=== PATIENT | female | born 1950 | race Caucasian/White ===

== ENCOUNTER → 2016-03-05 | Outpatient (CLI) | payer MEDICARE, OTHER ==
[2015-12-22 07:00] VITALS: BP 80/49
[~2016-03-05] MED LIST: ALPR0.5T PO; ALPR1TAB2 PO; ALPR2TAB2 PO; ATORVASTATIN CA80 MG PO; BUSP10TA PO; CA C1TAB66 PO; CALC-77 PO; CHOL-5 PO; CHOL10003 PO; CLOP75TA27 PO; DULO60CA6 PO; GLUC1TAB69 PO; KRIL1CAP10 PO; MULT1TAB52 PO; TIZA4TAB PO; TRAM50TA PO; UBID200C4 PO; ZOLP10TA4 PO
--- NOTE | 2016-03-05 12:45 | KCIC ---
PROCEDURE MR of the left knee HISTORY Left knee pain. Pain posterior and lateral. Pain for 3-4 weeks. TECHNIQUE Standard noncontrast images are obtained. COMPARISON FINDINGS No evidence of medial meniscal tear No evidence of a lateral meniscal tear. Anterior and posterior cruciate ligaments are intact. Medial collateral ligament demonstrates mild proximal scarring or sprain. Iliotibial band unremarkable. Fibular collateral ligament, biceps femoris tendon and popliteus tendon are intact. Extensor mechanism is intact. Moderate joint effusion. No evidence of osteochondral loose body. Moderate chondromalacia at the posterior aspect of the lateral joint compartment. Moderate chondromalacia of the patella. No bone lesion or acute fracture. Mild generalized soft tissue edema or contusion around the knee. IMPRESSION 1. No evidence of meniscal tear or internal derangement. 2. Primary osteoarthritis at the lateral compartment and patella. Electronically signed by: Immanuel Fitzgerald MD (Mar 05, 2016 12:44:30)
== END | disposition home or self-care (01) ==
LOC: KCIC MRI 09:09
PROVIDERS: ATTEND Nurse Practitioner Family
DX: M25.562 Pain in left knee (principal); M17.12 Unilateral primary osteoarthritis, left knee
CPT/HCPCS: 73721

== ENCOUNTER 2016-03-07 11:42 | Inpatient (IN) | payer MEDICARE ==
[~2016-03-07] VITALS: Ht 157.5 cm; Wt 91.8 kg
--- NOTE | 2016-03-07 12:22 | EKG ---
[facility] [address] [place] [address] Test Date: 2016-03-07 Test Time: 11:59:34 Pat Name: JONNA PRECIADO Department: Room: Gender: F Hole Puncher Strap: : 1950 Requested By: YULIA LLANOS Order Number: [id number] Reading MD: Gennaro Anguiano Measurements Intervals Sherman Rate: 69 P: 39 WI: 170 QRS: -17 QRSD: 100 T: -2 QT: 428 QTc: 460 Interpretive Statements SINUS RHYTHM Electronically Signed On 03-10-2016 10:20:16 LINING FINISHER by Gennaro Anguiano
--- NOTE | 2016-03-07 12:26 | PHYS DOC ---
Past Medical History Past Medical History: CVA Past Surgical History: Knee Replacement Adult General Chief Complaint Chief Complaint: WEAKNESS/GENERALIZED HPI HPI Patient is a 65 year old female who reports history of CVA with residual chronic dysarthria a presents complaining of drowsiness, fatigue, low-grade fevers and chills. Her family members were apparently concerned that she was having a stroke because her speech has become more slurred. Time of onset is uncertain. Apparently, her speech has become more slurred. The patient says that this often happens when she is either stressed out or sick, but her speech will go back to normal. Patient takes a muscle relaxant, tizanidine, and apparently takes some sort of pain medication as well for her chronic neck pain. She denies any acute motor weakness or sensory loss. She denies cough, chest pain, abdominal pain, nausea, vomiting, diarrhea, dysuria, or hematuria. She reports that she is on some antibiotic for urinary tract infection, but can' t tell me what. Review of Systems Review of Systems Constitutional: Reports low-grade fevers and chills Eyes: Denies change in visual acuity, redness, or eye pain HENT: Denies nasal congestion or sore throat Respiratory: Denies cough or shortness of breath Cardiovascular: An ice chest pain GI: Denies abdominal pain, nausea, vomiting, bloody stools or diarrhea : Denies dysuria or hematuria Musculoskeletal: Denies back pain or joint pain. Reports chronic neck pain. Integument: Denies rash or skin lesions Neurologic: Denies headache, focal weakness or sensory changes. Reports drowsiness and slurred speech. Current Medications Current Medications Current Medications Medications (Trade) Dose Ordered Sig/Leola Start Time Stop Time Status Last Admin Dose Admin Ceftriaxone Sodium 1 gm/ Sodium Chloride 50 ml @ 100 mls/hr Q24H 03/08/16 14:00 Ceftriaxone Sodium (Rocephin 1gm Ivpb For Omni) 50 ml @ 100 mls/hr 1X ONCE 03/07/16 14:00 03/07/16 14:29 Naloxone HCl 0.4 mg 0.4 mg 1X ONCE 03/07/16 12:30 03/07/16 12:31 DC 03/07/16 12:44 0.4 MG Sodium Chloride 1,000 ml @ 1,000 mls/hr 1X ONCE 03/07/16 13:30 03/07/16 14:29 03/07/16 14:01 1,000 MLS/HR Allergies Allergies Allergies Coded Allergies Type Severity Reaction Last Updated Verified codeine Adverse Reaction Mild cramp, vomit 12/19/15 Yes Physical Exam Physical Exam Constitutional: Well developed, well nourished, no acute distress, non-toxic appearance. Somnolent, drowsy. HENT: Normocephalic, atraumatic, bilateral external ears normal, oropharynx moist, no oral exudates, nose normal. Eyes: PERRLA, EOMI, conjunctiva normal, no discharge. Neck: Normal range of motion, no tenderness, supple, no stridor. Cardiovascular:Heart rate regular rhythm, no murmur Lungs & Thorax: Bilateral breath sounds clear to auscultation Abdomen: Bowel sounds normal, soft, no tenderness, no masses, no pulsatile masses. Skin: Warm, dry, no erythema, no rash. Back: Normal to inspection. Extremities: No tenderness, no cyanosis, no edema. Neurologic: Drowsy/somnolent but easily arousable. Oriented X 3, normal motor function, normal sensory function, no focal deficits noted. Slurred speech noted. No aphasia appreciated. Psychologic: Affect normal, judgement normal, mood normal. Current Patient Data Vital Signs Vital Signs Date Time Temp Pulse Resp B/P Pulse Ox O2 Delivery O2 Flow Rate FiO2 03/07/16 11:45 98 72 20 95/50 93 Room Air 98.0 Lab Values Laboratory Tests Test 03/07/16 11:55 03/07/16 12:15 White Blood Count 12.0x10^3/uL (4.0-11.0) H Red Blood Count 3.92x10^6/uL (3.50-5.40) Hemoglobin 11.6g/dL (12.0-15.5) L Hematocrit 36.1% (36.0-47.0) Mean Corpuscular Volume 92fL (79-100) Mean Corpuscular Hemoglobin 30pg (25-35) Mean Corpuscular Hemoglobin Concent 32g/dL (31-37) Red Cell Distribution Width 17.2% (11.5-14.5) H Platelet Count 157x10^3/uL (140-400) Neutrophils (%) (Auto) 86% (31-73) H Lymphocytes (%) (Auto) 4% (24-48) L Monocytes (%) (Auto) 10% (0-9) H Eosinophils (%) (Auto) 0% (0-3) Basophils (%) (Auto) 0% (0-3) Neutrophils # (Auto) 10.2x10^3uL (1.8-7.7) H Lymphocytes # (Auto) 0.5x10^3/uL (1.0-4.8) L Monocytes # (Auto) 1.2x10^3/uL (0.0-1.1) H Eosinophils # (Auto) 0.0x10^3/uL (0.0-0.7) Basophils # (Auto) 0.0x10^3/uL (0.0-0.2) Platelet Estimate Pending Prothrombin Time 15.1SEC (11.7-14.0) H Prothrombin Time INR 1.3 (0.8-1.1) H Sodium Level 136mmol/L (136-145) Potassium Level 3.6mmol/L (3.5-5.1) Chloride Level 101mmol/L (98-107) Carbon Dioxide Level 20mmol/L (21-32) L Anion Gap 15 (6-14) H Blood Urea Nitrogen 48mg/dL (7-20) H Creatinine 2.6mg/dL (0.6-1.0) H Estimated GFR (Cockcroft-Gault) 18.5 Glucose Level 93mg/dL (70-99) Calcium Level 8.8mg/dL (8.5-10.1) Ethyl Alcohol Level < 10mg/dL (0-10) Urine Collection Type Unknown Urine Color Yellow Urine Clarity Cloudy Urine pH 6.0 Urine Specific [place] 1.015 Urine Protein Tracemg/dL (NEG-TRACE) Urine Glucose (UA) Negativemg/dL (NEG) Urine Ketones (Stick) Negativemg/dL (NEG) Urine Blood Moderate (NEG) Urine Nitrite Negative (NEG) Urine Bilirubin Negative (NEG) Urine Urobilinogen Dipstick 1.0mg/dL (0.2 mg/dL) Urine Leukocyte Esterase Moderate (NEG) Urine RBC 1-2/HPF (0-2) Urine WBC >40/HPF (0-4) Urine Squamous Epithelial Cells Many/LPF Urine Bacteria Moderate/HPF (0-FEW) Urine Opiates Screen Pos (NEG) Urine Methadone Screen Neg (NEG) Urine Barbiturates Neg (NEG) Urine Phencyclidine Screen Neg (NEG) Urine Amphetamine/Methamphetamine Neg (NEG) Urine Benzodiazepines Screen Pos (NEG) Urine Cocaine Screen Neg (NEG) Urine Cannabinoids Screen Neg (NEG) Urine Ethyl Alcohol Neg (NEG) Laboratory Tests 03/07/16 11:55 Laboratory Tests 03/07/16 11:55 EKG EKG EKG: Sinus rhythm. Left axis deviation. Rate 69 bpm. Normal intervals. No acute ST segment changes. EKG interpreted by me. Radiology/Procedures Radiology/Procedures [] Course & Med Decision Making Course & Med Decision Making Pertinent Labs and Imaging studies reviewed. (See chart for details) Patient has no focal deficits on exam, and I do not suspect acute CVA. She appears somnolent, drowsy, and dozes off during conversation. Her speech is slurred, and she is on benzodiazepines and opioids. I suspect medication induced narcosis. She was given 0.4 mg IV Narcan and woke up quite a bit and had significant improvement in her speech. Lab analysis reveals acutely elevated BUN/creatinine with acute renal insufficiency, likely prerenal. IV fluids were given for presumed dehydration. Urinalysis reveals UTI, so IV Rocephin was started. I have discussed this case with Dr. Cope who agreed to admit the patient for further management. Dragon Disclaimer Dragon Disclaimer This electronic medical record was generated, in whole or in part, using a voice recognition dictation system. Departure Departure Impression: Primary Impression: Dehydration Additional Impressions: Acute renal insufficiency UTI (urinary tract infection) Opiate or related narcotic overdose Admitting Physician: Ginna Cope Condition: STABLE Referrals: OFE ESTRADA APRN (PCP) Problem Qualifiers Additional Impressions: UTI (urinary tract infection) Urinary tract infection type: site unspecified Hematuria presence: without hematuria Qualified Code: N39.0 - Urinary tract infection, site not specified Opiate or related narcotic overdose Encounter type: initial encounter Injury intent: accidental or unintentional Qualified Code: T40.601A - Poisoning by unspecified narcotics, accidental (unintentional), initial encounter YULIA LLANOS MD Mar 07, 2016 12:20
[2016-03-07] MEDS ORDERED: NALOXONE 0.4 MG/ML VIAL. IV ONE (12:30)
[2016-03-07 12:40] LABS: BASO % 0 % (0-3); CALCIUM 8.8 mg/dL (8.5-10.1); CREATININE 2.6 mg/dL (0.6-1.0); EOS % 0 % (0-3); GFR 18.5; HEMATOCRIT 36.1 % (36.0-47.0); HEMOGLOBIN 11.6 g/dL (12.0-15.5); LYMPH # 0.5 x10^3/uL (1.0-4.8); LYMPH % 4 % (24-48); MEAN CORPUSCULAR HEMOGLOBIN 30 pg (25-35); MEAN CORPUSCULAR HGB CONC 32 g/dL (31-37); MEAN CORPUSCULAR VOLUME 92 fL (79-100); MONO % 10 % (0-9); NEUT % 86 % (31-73); PLATELET COUNT 157 x10^3/uL (140-400); POTASSIUM 3.6 mmol/L (3.5-5.1); RED BLOOD COUNT 3.92 x10^6/uL (3.50-5.40); RED CELL DISTRIBUTION WIDTH 17.2 % (11.5-14.5)
[2016-03-07 12:54] LABS: INR 1.3 (0.8-1.1); PROTHROMBIN TIME PATIENT 15.1 SEC (11.7-14.0)
[2016-03-07 13:20] LABS: BILIRUBIN,URINE NEGATIVE (NEG); GLUCOSE,URINE NEGATIVE (NEG); NITRITE,URINE NEGATIVE (NEG)
[2016-03-07 13:26] LABS: BARBITURATES NEG (NEG); BENZODIAZEPINES POS (NEG); CANNABINOIDS NEG (NEG); COCAINE NEG (NEG); METHADONE NEG (NEG); OPIATES POS (NEG); PHENCYCLIDINE NEG (NEG)
[2016-03-07 13:27] LABS: ETHANOL, URINE NEG (NEG)
[2016-03-07] MEDS ORDERED: IV NORMAL SALINE 1000ML BAG 1,000 ML IV ONE (13:30)
[2016-03-07] MEDS ORDERED: CEFTRIAXONE 1GM IVPB FOR OMNI 50 ML IV ONE ×2 (13:45→14:00)
[2016-03-07 13:48] LABS: PROTEIN,URINE TRACE mg/dL (NEG-TRACE); WBC,URINE >40 /HPF (0-4)
[2016-03-07 13:49] LABS: BACTERIA,URINE MODERATE /HPF (0-FEW); SQUAMOUS EPITHELIAL CELL,UR MANY /LPF
[2016-03-07] MEDS ORDERED: ONDANSETRON PF 4 MG/2 ML VIAL. IV PRN (14:15)
--- NOTE | 2016-03-07 14:54 | PDOC1 ---
History and Physical Date of Admission Date of Admission DATE: 03/07/16 TIME: 14:44 Identification/Chief Complaint Chief Complaint altered MS Source Source: Chart review, Patient History of Present Illness History of Present Illness 65 y/o female who is on benzos, narcs at home and she could not really tell me why or at least is too sleepy to tell me why, She goes into long stories about her hysterrectomy after her second son, etc, She did not want to be refocused. She got narcan at ER, woke her up but is still drowsy but way significantly better than upon arrival./ LAbs show dehydration with creatine 2 plus from a normal value of 0.6 mos ago,. SHe does have chronic uTi on suppressive daily doses of antibiotic which she cant tell us, UA shows WBC > 40, Got rocephin at ER. WBC 12, rest of labs and VS ok. MOuth real dry, complains of dry mouth. Does not want to participate with H and P bec claims mouth is so dry, Rest of HPI limited, MOstly gotten from ER mD Hx of CVA with dysarthria (at least she claims), off and on at times since the stroke Past Medical History Past Medical History unknown - could not be obtained from pt as stated in HPI Past Surgical History Past Surgical History: Other (unknown - could not be obtained from pt as stated in HPI) Family History Family History unknown - could not be obtained from pt as stated in HPI Social History Drugs: Other (unknown - could not be obtained from pt as stated in HPI) Current Problem List Problem List Problems Medical Problems: (1) Acute renal insufficiency Status: Acute (2) Dehydration Status: Acute (3) Opiate or related narcotic overdose Status: Acute (4) UTI (urinary tract infection) Status: Acute Problems: Current Medications Current Medications Current Medications Naloxone HCl 0.4 mg 0.4 mg 1X ONCE IV Last administered on 03/07/16 12:44; Start 03/07/16 at 12:30; Stop 03/07/16 at 12:31; Status DC Sodium Chloride 1,000 ml @ 1,000 mls/hr 1X ONCE IV Last administered on 14:01; Start 03/07/16 at 13:30; Stop 03/07/16 at 14:29; Status DC Ceftriaxone Sodium 1 gm/ Sodium Chloride 50 ml @ 100 mls/hr Q24H IV ; Start at 14:00; Status Cancel Ceftriaxone Sodium 50 ml @ 100 mls/hr 1X ONCE IV ; Start 03/07/16 at 13:45; Stop 03/07/16 at 14:14; Status Cancel Ceftriaxone Sodium 1 gm/ Sodium Chloride 50 ml @ 100 mls/hr Q24H IV ; Start at 14:00 Ceftriaxone Sodium (Rocephin 1gm Ivpb For Omni) 50 ml @ 100 mls/hr 1X ONCE IV Last administered on 03/07/16t 14:36; Start 03/07/16 at 14:00; Stop 03/07/16 at 14:29; Status DC Ondansetron HCl 4 mg 4 mg PRN Q8HRS PRN IV NAUSEA/VOMITING; Start 03/07/16 at 14:15; Stop 03/07/16 at 14:43; Status DC Sodium Chloride (Iv Sodium Chloride 0.9% 1000ml Bag) 1,000 ml @ 125 mls/hr Q8H IV ; Start 03/07/16 at 14:30; Stop 03/08/16 at 14:29 Acetaminophen (Tylenol) 650 mg PRN Q4HRS PRN PO FEVER; Start 03/07/16 at 14:15 ; Stop 03/08/16 at 14:14 Ondansetron HCl (Zofran) 4 mg PRN Q6HRS PRN IV NAUSEA/VOMITING; Start 03/07/16 at 14:40; Status UNV Vitamin D (Vitamin D3) 2,000 unit HS PO ; Start 03/07/16 at 21:00; Status UNV Clopidogrel Bisulfate (Plavix) 75 mg DAILY PO ; Start 03/08/16 at 09:00; Status UNV Non-Formulary Medication 75 mg HS PO FOR CHOLESTEROL; Start 03/07/16 at 21:00; Status UNV Active Scripts Active Reported Tizanidine Hcl 4 Mg Tablet 1 Tab PO Q8HRS Vitamin D3 (Cholecalciferol (Vitamin D3)) 1,000 Unit Tablet 2,000 Unit PO HS Xanax (Alprazolam) 0.5 Mg Tablet 1 Tab PO TID Tramadol Hcl 50 Mg Tablet 50 Mg PO Q8HRS PRN Multivitamins (Multivitamin) 1 Each Tablet 1 Each PO Calcium + D3 Er Tablet (Calcium Carb & Cit/Vitamin D3) 1 Each Tablet.er 1 Each PO Atorvastatin Calcium 80 Mg Tablet 75 Mg PO HS Zolpidem Tartrate 10 Mg Tablet 10 Mg PO PRN QHS PRN Plavix (Clopidogrel Bisulfate) 75 Mg Tablet 75 Mg PO DAILY Buspirone Hcl 10 Mg Tablet 10 Mg PO BID Cymbalta (Duloxetine Hcl) 60 Mg Capsule.dr 60 Mg PO DAILY Allergies Allergies: Coded Allergies: codeine (Verified Adverse Reaction, Mild, cramp, vomit, 12/19/15) ROS Review of System unknown - could not be obtained from pt as stated in HPI Physical Exam General: Other (sleepy, drowsy but not in respi distress) HEENT: PERRLA, EOMI, Mucous membr. moist/pink Lungs: Clear to auscultation, Normal air movement Heart: S1S2, RRR, no thrills, no rubs, no gallops, no murmurs Cardiovascular: S1, S2 Breasts: Normal, Rt breast nml w/o mass, Lt breast nml w/o mass, Nipples normal Abdomen: Normal bowel sounds, Soft, No tenderness, No hepatosplenomegaly, No masses Rectal Exam: not examined PELVIC: Nml ext genitalia Extremities: No clubbing, No cyanosis, No edema, Normal pulses, No tenderness/ swelling Skin: No rashes, No breakdown, No significant lesion Neuro: Other (could not be assessed) Psych/Mental Status: Mental status NL, Mood NL Vitals Vitals Vital Signs Date Time Temp Pulse Resp B/P Pulse Ox O2 Delivery O2 Flow Rate FiO2 03/07/16 11:45 98 72 20 95/50 93 Room Air 98.0 Labs Labs Laboratory Tests Test 03/07/16 11:55 03/07/16 12:15 White Blood Count 12.0x10^3/uL (4.0-11.0) Red Blood Count 3.92x10^6/uL (3.50-5.40) Hemoglobin 11.6g/dL (12.0-15.5) Hematocrit 36.1% (36.0-47.0) Mean Corpuscular Volume 92fL (79-100) Mean Corpuscular Hemoglobin 30pg (25-35) Mean Corpuscular Hemoglobin Concent 32g/dL (31-37) Red Cell Distribution Width 17.2% (11.5-14.5) Platelet Count 157x10^3/uL (140-400) Neutrophils (%) (Auto) 86% (31-73) Lymphocytes (%) (Auto) 4% (24-48) Monocytes (%) (Auto) 10% (0-9) Eosinophils (%) (Auto) 0% (0-3) Basophils (%) (Auto) 0% (0-3) Neutrophils # (Auto) 10.2x10^3uL (1.8-7.7) Lymphocytes # (Auto) 0.5x10^3/uL (1.0-4.8) Monocytes # (Auto) 1.2x10^3/uL (0.0-1.1) Eosinophils # (Auto) 0.0x10^3/uL (0.0-0.7) Basophils # (Auto) 0.0x10^3/uL (0.0-0.2) Prothrombin Time 15.1SEC (11.7-14.0) Prothromb Time International Ratio 1.3 (0.8-1.1) Sodium Level 136mmol/L (136-145) Potassium Level 3.6mmol/L (3.5-5.1) Chloride Level 101mmol/L (98-107) Carbon Dioxide Level 20mmol/L (21-32) Anion Gap 15 (6-14) Blood Urea Nitrogen 48mg/dL (7-20) Creatinine 2.6mg/dL (0.6-1.0) Estimated GFR (Cockcroft-Gault) 18.5 Glucose Level 93mg/dL (70-99) Calcium Level 8.8mg/dL (8.5-10.1) Ethyl Alcohol Level < 10mg/dL (0-10) Urine Collection Type Unknown Urine Color Yellow Urine Clarity Cloudy Urine pH 6.0 Urine Specific [place] 1.015 Urine Protein Tracemg/dL (NEG-TRACE) Urine Glucose (UA) Negativemg/dL (NEG) Urine Ketones (Stick) Negativemg/dL (NEG) Urine Blood Moderate (NEG) Urine Nitrite Negative (NEG) Urine Bilirubin Negative (NEG) Urine Urobilinogen Dipstick 1.0mg/dL (0.2 mg/dL) Urine Leukocyte Esterase Moderate (NEG) Urine RBC 1-2/HPF (0-2) Urine WBC >40/HPF (0-4) Urine Squamous Epithelial Cells Many/LPF Urine Bacteria Moderate/HPF (0-FEW) Urine Opiates Screen Pos (NEG) Urine Methadone Screen Neg (NEG) Urine Barbiturates Neg (NEG) Urine Phencyclidine Screen Neg (NEG) Urine Amphetamine/Methamphetamine Neg (NEG) Urine Benzodiazepines Screen Pos (NEG) Urine Cocaine Screen Neg (NEG) Urine Cannabinoids Screen Neg (NEG) Urine Ethyl Alcohol Neg (NEG) Laboratory Tests Test 03/07/16 11:55 03/07/16 12:15 White Blood Count 12.0x10^3/uL (4.0-11.0) Red Blood Count 3.92x10^6/uL (3.50-5.40) Hemoglobin 11.6g/dL (12.0-15.5) Hematocrit 36.1% (36.0-47.0) Mean Corpuscular Volume 92fL (79-100) Mean Corpuscular Hemoglobin 30pg (25-35) Mean Corpuscular Hemoglobin Concent 32g/dL (31-37) Red Cell Distribution Width 17.2% (11.5-14.5) Platelet Count 157x10^3/uL (140-400) Neutrophils (%) (Auto) 86% (31-73) Lymphocytes (%) (Auto) 4% (24-48) Monocytes (%) (Auto) 10% (0-9) Eosinophils (%) (Auto) 0% (0-3) Basophils (%) (Auto) 0% (0-3) Neutrophils # (Auto) 10.2x10^3uL (1.8-7.7) Lymphocytes # (Auto) 0.5x10^3/uL (1.0-4.8) Monocytes # (Auto) 1.2x10^3/uL (0.0-1.1) Eosinophils # (Auto) 0.0x10^3/uL (0.0-0.7) Basophils # (Auto) 0.0x10^3/uL (0.0-0.2) Prothrombin Time 15.1SEC (11.7-14.0) Prothromb Time International Ratio 1.3 (0.8-1.1) Sodium Level 136mmol/L (136-145) Potassium Level 3.6mmol/L (3.5-5.1) Chloride Level 101mmol/L (98-107) Carbon Dioxide Level 20mmol/L (21-32) Anion Gap 15 (6-14) Blood Urea Nitrogen 48mg/dL (7-20) Creatinine 2.6mg/dL (0.6-1.0) Estimated GFR (Cockcroft-Gault) 18.5 Glucose Level 93mg/dL (70-99) Calcium Level 8.8mg/dL (8.5-10.1) Ethyl Alcohol Level < 10mg/dL (0-10) Urine Collection Type Unknown Urine Color Yellow Urine Clarity Cloudy Urine pH 6.0 Urine Specific [place] 1.015 Urine Protein Tracemg/dL (NEG-TRACE) Urine Glucose (UA) Negativemg/dL (NEG) Urine Ketones (Stick) Negativemg/dL (NEG) Urine Blood Moderate (NEG) Urine Nitrite Negative (NEG) Urine Bilirubin Negative (NEG) Urine Urobilinogen Dipstick 1.0mg/dL (0.2 mg/dL) Urine Leukocyte Esterase Moderate (NEG) Urine RBC 1-2/HPF (0-2) Urine WBC >40/HPF (0-4) Urine Squamous Epithelial Cells Many/LPF Urine Bacteria Moderate/HPF (0-FEW) Urine Opiates Screen Pos (NEG) Urine Methadone Screen Neg (NEG) Urine Barbiturates Neg (NEG) Urine Phencyclidine Screen Neg (NEG) Urine Amphetamine/Methamphetamine Neg (NEG) Urine Benzodiazepines Screen Pos (NEG) Urine Cocaine Screen Neg (NEG) Urine Cannabinoids Screen Neg (NEG) Urine Ethyl Alcohol Neg (NEG) VTE Prophylaxis Ordered VTE Prophylaxis Devices: Yes VTE Pharmacological Prophylaxi: Yes Assessment/Plan Assessment/Plan 1. Metabolic toxic encephalopathy likely sec to meds 2, Acute on chronic uTI 3. ARF, dehydration 4,. Hx CVA with dysarthria PLAn: IV rocephin Cont plavix Urine cx PT/OT NO narcs IVF\Recheck BMP in AM seen at [facility] MD Mar 07, 2016 14:54
[2016-03-07 15:30] LABS: ANISOCYTOSIS SLIGHT; PLT ESTIMATE ADEQUATE (ADEQUATE)
[2016-03-07 15:32] LABS: BURR CELLS MOD; CRENATED RBC PRESENT
[2016-03-07] MEDS: IV NORMAL SALINE 1000ML BAG 1,000 ML IV SCH (16:18)
[2016-03-07 17:04] VITALS: BP 113/66
[2016-03-07 17:06] VITALS: BP 113/66
[2016-03-07 19:49] VITALS: BP 120/66
[2016-03-07] MEDS ORDERED: FLU VACC QUAD 2016-17 (36MOS+)/PF 0.5 ML SYRINGE. VAX IM ONE (20:00)
[2016-03-07] MEDS: ACETAMINOPHEN 325 MG TABLET. PO PRN (20:58)
[2016-03-07] MEDS: ATORVASTATIN CALCIUM 40 MG TABLET. PO SCH (20:59)
[2016-03-08] MEDS: IV NORMAL SALINE 1000ML BAG 1,000 ML IV SCH ×3 (00:36→15:40)
[2016-03-08 03:38] VITALS: BP 121/69
[2016-03-08] MEDS: ACETAMINOPHEN 325 MG TABLET. PO PRN (06:32)
[2016-03-08 06:55] LABS: CALCIUM 8.3 mg/dL (8.5-10.1); CREATININE 1.6 mg/dL (0.6-1.0); GFR 32.3
[2016-03-08 07:00] VITALS: BP 127/72
[2016-03-08] MEDS: CLOPIDOGREL BISULFATE 75 MG TABLET PO SCH (08:21)
[2016-03-08] MEDS: CHOLECALCIFEROL (VITAMIN D3) 1,000 UNIT TABLET PO SCH (08:22)
--- NOTE | 2016-03-08 10:54 | PDOC ---
PROGRESS NOTES Chief Complaint Chief Complaint Severe dehydration AMS resolved. HENRI Leucocytosis with Bands Hypokalemia metabolic acidosis Mild hypotension Acute on chronic back, shoulder and extremity pains. Plan blood cx cxr - no pneumonia replace potassium IV saline at 125ml/hr bolus NS 500ML times Pain control with oral norco avoid sedative avoid co2 narcosis PT/OT Labs reviwed, monitor renal functions. no visible signs of infection History of Present Illness History of Present Illness pain 10/10 no chest pain no fever no chills. Vitals Vitals Vital Signs Date Time Temp Pulse Resp B/P Pulse Ox O2 Delivery O2 Flow Rate FiO2 03/08/16 08:00 Room Air 03/08/16 07:00 98.9 81 20 127/72 94 98.9 Physical Exam General: Alert, Oriented X3, Other (sleepy, drowsy but not in respi distress) Heart: Regular rate, Normal S1, Normal S2 Lungs: Clear Abdomen: Normal bowel sounds, Soft, No tenderness, No hepatosplenomegaly, No masses Extremities: No clubbing, No cyanosis, No edema, Normal pulses, No tenderness/ swelling Labs LABS Laboratory Tests Test 03/07/16 11:55 03/07/16 12:15 03/08/16 05:57 White Blood Count 12.0x10^3/uL (4.0-11.0) Red Blood Count 3.92x10^6/uL (3.50-5.40) Hemoglobin 11.6g/dL (12.0-15.5) Hematocrit 36.1% (36.0-47.0) Mean Corpuscular Volume 92fL (79-100) Mean Corpuscular Hemoglobin 30pg (25-35) Mean Corpuscular Hemoglobin Concent 32g/dL (31-37) Red Cell Distribution Width 17.2% (11.5-14.5) Platelet Count 157x10^3/uL (140-400) Neutrophils (%) (Auto) 86% (31-73) Lymphocytes (%) (Auto) 4% (24-48) Monocytes (%) (Auto) 10% (0-9) Eosinophils (%) (Auto) 0% (0-3) Basophils (%) (Auto) 0% (0-3) Neutrophils # (Auto) 10.2x10^3uL (1.8-7.7) Lymphocytes # (Auto) 0.5x10^3/uL (1.0-4.8) Monocytes # (Auto) 1.2x10^3/uL (0.0-1.1) Eosinophils # (Auto) 0.0x10^3/uL (0.0-0.7) Basophils # (Auto) 0.0x10^3/uL (0.0-0.2) Segmented Neutrophils % 38% (35-66) Band Neutrophils % 43% (0-9) Lymphocytes % 7% (24-48) Monocytes % 12% (0-10) Platelet Estimate Adequate (ADEQUATE) Anisocytosis Slight [place] Cells Mod Crenated Cell Present Prothrombin Time 15.1SEC (11.7-14.0) Prothromb Time International Ratio 1.3 (0.8-1.1) Sodium Level 136mmol/L (136-145) 141mmol/L (136-145) Potassium Level 3.6mmol/L (3.5-5.1) 3.0mmol/L (3.5-5.1) Chloride Level 101mmol/L (98-107) 107mmol/L (98-107) Carbon Dioxide Level 20mmol/L (21-32) 19mmol/L (21-32) Anion Gap 15 (6-14) 15 (6-14) Blood Urea Nitrogen 48mg/dL (7-20) 36mg/dL (7-20) Creatinine 2.6mg/dL (0.6-1.0) 1.6mg/dL (0.6-1.0) Estimated GFR (Cockcroft-Gault) 18.5 32.3 Glucose Level 93mg/dL (70-99) 70mg/dL (70-99) Calcium Level 8.8mg/dL (8.5-10.1) 8.3mg/dL (8.5-10.1) Ethyl Alcohol Level < 10mg/dL (0-10) Urine Collection Type Unknown Urine Color Yellow Urine Clarity Cloudy Urine pH 6.0 Urine Specific [place] 1.015 Urine Protein Tracemg/dL (NEG-TRACE) Urine Glucose (UA) Negativemg/dL (NEG) Urine Ketones (Stick) Negativemg/dL (NEG) Urine Blood Moderate (NEG) Urine Nitrite Negative (NEG) Urine Bilirubin Negative (NEG) Urine Urobilinogen Dipstick 1.0mg/dL (0.2 mg/dL) Urine Leukocyte Esterase Moderate (NEG) Urine RBC 1-2/HPF (0-2) Urine WBC >40/HPF (0-4) Urine Squamous Epithelial Cells Many/LPF Urine Bacteria Moderate/HPF (0-FEW) Urine Opiates Screen Pos (NEG) Urine Methadone Screen Neg (NEG) Urine Barbiturates Neg (NEG) Urine Phencyclidine Screen Neg (NEG) Urine Amphetamine/Methamphetamine Neg (NEG) Urine Benzodiazepines Screen Pos (NEG) Urine Cocaine Screen Neg (NEG) Urine Cannabinoids Screen Neg (NEG) Urine Ethyl Alcohol Neg (NEG) Assessment and Plan Assessmemt and Plan Problems Medical Problems: (1) Acute renal insufficiency Status: Acute (2) Dehydration Status: Acute (3) Opiate or related narcotic overdose Status: Acute (4) UTI (urinary tract infection) Status: Acute Problems: Comment Review of Relevant I have reviewed the following items rudy (where applicable) has been applied. Labs Laboratory Tests Test 03/07/16 11:55 03/07/16 12:15 03/08/16 05:57 White Blood Count 12.0x10^3/uL (4.0-11.0) Red Blood Count 3.92x10^6/uL (3.50-5.40) Hemoglobin 11.6g/dL (12.0-15.5) Hematocrit 36.1% (36.0-47.0) Mean Corpuscular Volume 92fL (79-100) Mean Corpuscular Hemoglobin 30pg (25-35) Mean Corpuscular Hemoglobin Concent 32g/dL (31-37) Red Cell Distribution Width 17.2% (11.5-14.5) Platelet Count 157x10^3/uL (140-400) Neutrophils (%) (Auto) 86% (31-73) Lymphocytes (%) (Auto) 4% (24-48) Monocytes (%) (Auto) 10% (0-9) Eosinophils (%) (Auto) 0% (0-3) Basophils (%) (Auto) 0% (0-3) Neutrophils # (Auto) 10.2x10^3uL (1.8-7.7) Lymphocytes # (Auto) 0.5x10^3/uL (1.0-4.8) Monocytes # (Auto) 1.2x10^3/uL (0.0-1.1) Eosinophils # (Auto) 0.0x10^3/uL (0.0-0.7) Basophils # (Auto) 0.0x10^3/uL (0.0-0.2) Segmented Neutrophils % 38% (35-66) Band Neutrophils % 43% (0-9) Lymphocytes % 7% (24-48) Monocytes % 12% (0-10) Platelet Estimate Adequate (ADEQUATE) Anisocytosis Slight [place] Cells Mod Crenated Cell Present Prothrombin Time 15.1SEC (11.7-14.0) Prothromb Time International Ratio 1.3 (0.8-1.1) Sodium Level 136mmol/L (136-145) 141mmol/L (136-145) Potassium Level 3.6mmol/L (3.5-5.1) 3.0mmol/L (3.5-5.1) Chloride Level 101mmol/L (98-107) 107mmol/L (98-107) Carbon Dioxide Level 20mmol/L (21-32) 19mmol/L (21-32) Anion Gap 15 (6-14) 15 (6-14) Blood Urea Nitrogen 48mg/dL (7-20) 36mg/dL (7-20) Creatinine 2.6mg/dL (0.6-1.0) 1.6mg/dL (0.6-1.0) Estimated GFR (Cockcroft-Gault) 18.5 32.3 Glucose Level 93mg/dL (70-99) 70mg/dL (70-99) Calcium Level 8.8mg/dL (8.5-10.1) 8.3mg/dL (8.5-10.1) Ethyl Alcohol Level < 10mg/dL (0-10) Urine Collection Type Unknown Urine Color Yellow Urine Clarity Cloudy Urine pH 6.0 Urine Specific [place] 1.015 Urine Protein Tracemg/dL (NEG-TRACE) Urine Glucose (UA) Negativemg/dL (NEG) Urine Ketones (Stick) Negativemg/dL (NEG) Urine Blood Moderate (NEG) Urine Nitrite Negative (NEG) Urine Bilirubin Negative (NEG) Urine Urobilinogen Dipstick 1.0mg/dL (0.2 mg/dL) Urine Leukocyte Esterase Moderate (NEG) Urine RBC 1-2/HPF (0-2) Urine WBC >40/HPF (0-4) Urine Squamous Epithelial Cells Many/LPF Urine Bacteria Moderate/HPF (0-FEW) Urine Opiates Screen Pos (NEG) Urine Methadone Screen Neg (NEG) Urine Barbiturates Neg (NEG) Urine Phencyclidine Screen Neg (NEG) Urine Amphetamine/Methamphetamine Neg (NEG) Urine Benzodiazepines Screen Pos (NEG) Urine Cocaine Screen Neg (NEG) Urine Cannabinoids Screen Neg (NEG) Urine Ethyl Alcohol Neg (NEG) Laboratory Tests Test 03/07/16 11:55 03/07/16 12:15 03/08/16 05:57 White Blood Count 12.0x10^3/uL (4.0-11.0) Red Blood Count 3.92x10^6/uL (3.50-5.40) Hemoglobin 11.6g/dL (12.0-15.5) Hematocrit 36.1% (36.0-47.0) Mean Corpuscular Volume 92fL (79-100) Mean Corpuscular Hemoglobin 30pg (25-35) Mean Corpuscular Hemoglobin Concent 32g/dL (31-37) Red Cell Distribution Width 17.2% (11.5-14.5) Platelet Count 157x10^3/uL (140-400) Neutrophils (%) (Auto) 86% (31-73) Lymphocytes (%) (Auto) 4% (24-48) Monocytes (%) (Auto) 10% (0-9) Eosinophils (%) (Auto) 0% (0-3) Basophils (%) (Auto) 0% (0-3) Neutrophils # (Auto) 10.2x10^3uL (1.8-7.7) Lymphocytes # (Auto) 0.5x10^3/uL (1.0-4.8) Monocytes # (Auto) 1.2x10^3/uL (0.0-1.1) Eosinophils # (Auto) 0.0x10^3/uL (0.0-0.7) Basophils # (Auto) 0.0x10^3/uL (0.0-0.2) Segmented Neutrophils % 38% (35-66) Band Neutrophils % 43% (0-9) Lymphocytes % 7% (24-48) Monocytes % 12% (0-10) Platelet Estimate Adequate (ADEQUATE) Anisocytosis Slight [place] Cells Mod Crenated Cell Present Prothrombin Time 15.1SEC (11.7-14.0) Prothromb Time International Ratio 1.3 (0.8-1.1) Sodium Level 136mmol/L (136-145) 141mmol/L (136-145) Potassium Level 3.6mmol/L (3.5-5.1) 3.0mmol/L (3.5-5.1) Chloride Level 101mmol/L (98-107) 107mmol/L (98-107) Carbon Dioxide Level 20mmol/L (21-32) 19mmol/L (21-32) Anion Gap 15 (6-14) 15 (6-14) Blood Urea Nitrogen 48mg/dL (7-20) 36mg/dL (7-20) Creatinine 2.6mg/dL (0.6-1.0) 1.6mg/dL (0.6-1.0) Estimated GFR (Cockcroft-Gault) 18.5 32.3 Glucose Level 93mg/dL (70-99) 70mg/dL (70-99) Calcium Level 8.8mg/dL (8.5-10.1) 8.3mg/dL (8.5-10.1) Ethyl Alcohol Level < 10mg/dL (0-10) Urine Collection Type Unknown Urine Color Yellow Urine Clarity Cloudy Urine pH 6.0 Urine Specific [place] 1.015 Urine Protein Tracemg/dL (NEG-TRACE) Urine Glucose (UA) Negativemg/dL (NEG) Urine Ketones (Stick) Negativemg/dL (NEG) Urine Blood Moderate (NEG) Urine Nitrite Negative (NEG) Urine Bilirubin Negative (NEG) Urine Urobilinogen Dipstick 1.0mg/dL (0.2 mg/dL) Urine Leukocyte Esterase Moderate (NEG) Urine RBC 1-2/HPF (0-2) Urine WBC >40/HPF (0-4) Urine Squamous Epithelial Cells Many/LPF Urine Bacteria Moderate/HPF (0-FEW) Urine Opiates Screen Pos (NEG) Urine Methadone Screen Neg (NEG) Urine Barbiturates Neg (NEG) Urine Phencyclidine Screen Neg (NEG) Urine Amphetamine/Methamphetamine Neg (NEG) Urine Benzodiazepines Screen Pos (NEG) Urine Cocaine Screen Neg (NEG) Urine Cannabinoids Screen Neg (NEG) Urine Ethyl Alcohol Neg (NEG) Medications Current Medications Naloxone HCl 0.4 mg 0.4 mg 1X ONCE IV Last administered on 03/07/16 12:44; Start 03/07/16 at 12:30; Stop 03/07/16 at 12:31; Status DC Sodium Chloride 1,000 ml @ 1,000 mls/hr 1X ONCE IV Last administered on 14:01; Start 03/07/16 at 13:30; Stop 03/07/16 at 14:29; Status DC Ceftriaxone Sodium 1 gm/ Sodium Chloride 50 ml @ 100 mls/hr Q24H IV ; Start at 14:00; Status Cancel Ceftriaxone Sodium 50 ml @ 100 mls/hr 1X ONCE IV ; Start 03/07/16 at 13:45; Stop 03/07/16 at 14:14; Status Cancel Ceftriaxone Sodium 1 gm/ Sodium Chloride 50 ml @ 100 mls/hr Q24H IV ; Start at 14:00 Ceftriaxone Sodium (Rocephin 1gm Ivpb For Omni) 50 ml @ 100 mls/hr 1X ONCE IV Last administered on 03/07/16 14:36; Start 03/07/16 at 14:00; Stop 03/07/16 at 14:29; Status DC Ondansetron HCl 4 mg 4 mg PRN Q8HRS PRN IV NAUSEA/VOMITING; Start 03/07/16 at 14:15; Stop 03/07/16 at 14:43; Status DC Sodium Chloride (Iv Sodium Chloride 0.9% 1000ml Bag) 1,000 ml @ 125 mls/hr Q8H IV Last administered on 03/08/16 08:20; Start 03/07/16 at 14:30; Stop at 14:29 Acetaminophen (Tylenol) 650 mg PRN Q4HRS PRN PO FEVER Last administered on 03/08 06:32; Start 03/07/16 at 14:15; Stop 03/08/16 at 14:14 Ondansetron HCl (Zofran) 4 mg PRN Q6HRS PRN IV NAUSEA/VOMITING; Start 03/07/16 at 14:40 Vitamin D (Vitamin D3) 2,000 unit DAILY PO Last administered on 03/08/16 08:22 ; Start 03/08/16 at 09:00 Clopidogrel Bisulfate (Plavix) 75 mg DAILYWBKFT PO Last administered on 08:21; Start 03/08/16 at 08:00 Atorvastatin Calcium (Lipitor) 80 mg QHS PO Last administered on 03/07/16 20: 59; Start 03/07/16 at 21:00 Influenza Virus Vaccine Quadrival (Fluarix Quad 2034-0822 Syringe) 0.5 ml ONCE ONCE VAX IM ; Start 03/07/16 at 20:00; Stop 03/07/16 at 20:01; Status DC Active Scripts Active Reported Tizanidine Hcl 4 Mg Tablet 1 Tab PO Q8HRS Vitamin D3 (Cholecalciferol (Vitamin D3)) 1,000 Unit Tablet 2,000 Unit PO HS Xanax (Alprazolam) 0.5 Mg Tablet 1 Tab PO TID Tramadol Hcl 50 Mg Tablet 50 Mg PO Q8HRS PRN Multivitamins (Multivitamin) 1 Each Tablet 1 Each PO Calcium + D3 Er Tablet (Calcium Carb & Cit/Vitamin D3) 1 Each Tablet.er 1 Each PO Atorvastatin Calcium 80 Mg Tablet 75 Mg PO HS Zolpidem Tartrate 10 Mg Tablet 10 Mg PO PRN QHS PRN Plavix (Clopidogrel Bisulfate) 75 Mg Tablet 75 Mg PO DAILY Buspirone Hcl 10 Mg Tablet 10 Mg PO BID Cymbalta (Duloxetine Hcl) 60 Mg Capsule.dr 60 Mg PO DAILY Vitals/I & O Vital Sign - Last 24 Hours 03/07/16 03/07/16 03/07/16 03/07/16 11:45 12:00 12:30 13:00 Temp 98 98.0 Pulse 72 68 62 66 Resp 20 16 13 18 B/P 95/50 91/51 92/56 129/71 Pulse Ox 93 96 96 96 O2 Delivery Room Air Room Air Room Air Room Air 03/07/16 03/07/16 03/07/16 03/07/16 13:30 14:00 14:30 15:00 Pulse 68 70 70 72 Resp 16 13 16 16 B/P 100/59 94/57 98/54 108/55 Pulse Ox 96 96 96 92 O2 Delivery Room Air Room Air Room Air Room Air 03/07/16 03/07/16 03/07/16 03/07/16 16:00 17:04 17:06 18:38 Temp 97.5 97.5 97.5 97.5 Pulse 76 79 79 Resp 19 16 16 B/P 107/59 113/66 113/66 Pulse Ox 97 98 98 O2 Delivery Room Air Room Air Room Air 03/07/16 03/07/16 03/07/16 03/08/16 19:49 20:00 23:43 03:38 Temp 97.7 97.7 97.7 97.7 Pulse 80 76 Resp 24 16 16 B/P 120/66 121/69 Pulse Ox 97 95 O2 Delivery Room Air Room Air Room Air Room Air 03/08/16 03/08/16 07:00 08:00 Temp 98.9 98.9 Pulse 81 Resp 20 B/P 127/72 Pulse Ox 94 O2 Delivery Room Air Room Air Intake and Output 03/07/16 03/07/16 03/08/16 15:00 23:00 07:00 Intake Total 1350 ml 210 ml Balance 1350 ml 210 ml TERE REAL MD Mar 08, 2016 10:53
[2016-03-08 11:12] VITALS: BP 145/78
[2016-03-08] MEDS ORDERED: IV NORMAL SALINE 500ML BAG 500 ML IV ONE (11:15)
[2016-03-08] MEDS ORDERED: POTASSIUM CHLORIDE 20 MEQ TABLET.ER. PO ONE (11:30)
[2016-03-08] MEDS: HYDROCODONE/APAP 5/325MG TABLET. PO PRN ×3 (11:37→23:36)
--- NOTE | 2016-03-08 11:39 | RAD ---
EXAM: Chest, single view. HISTORY: Pneumonia. COMPARISON: None. FINDINGS: A frontal view of the chest is obtained. There is mild increased interstitial opacity without sanam congestion. There is basilar atelectasis. There is infiltration of the right hemidiaphragm. The heart is normal in size for portable technique. There is a right shoulder arthroplasty. There are surgical clips within the left upper quadrant. IMPRESSION: Basilar atelectasis.
[2016-03-08] MEDS ORDERED: CEFTRIAXONE SODIUM 1 GM in IV NORMAL SALINE 50ML 50 ML IV SCH ×4 (14:00)
[2016-03-08 15:02] VITALS: BP 138/85
[2016-03-08] MEDS: ONDANSETRON PF 4 MG/2 ML VIAL. IV PRN (18:26)
[2016-03-08 19:25] VITALS: BP 141/84
[2016-03-08] MEDS: ATORVASTATIN CALCIUM 40 MG TABLET. PO SCH (20:52)
[2016-03-08 22:45] VITALS: BP 145/82
[2016-03-09 03:10] VITALS: BP 150/85
[2016-03-09 05:18] LABS: BASO % 0 % (0-3); EOS % 1 % (0-3); HEMATOCRIT 37.2 % (36.0-47.0); HEMOGLOBIN 12.1 g/dL (12.0-15.5); LYMPH # 0.5 x10^3/uL (1.0-4.8); LYMPH % 7 % (24-48); MEAN CORPUSCULAR HEMOGLOBIN 30 pg (25-35); MEAN CORPUSCULAR HGB CONC 33 g/dL (31-37); MEAN CORPUSCULAR VOLUME 91 fL (79-100); MONO % 14 % (0-9); NEUT % 79 % (31-73); PLATELET COUNT 178 x10^3/uL (140-400); RED CELL DISTRIBUTION WIDTH 17.5 % (11.5-14.5); WHITE BLOOD COUNT 7.9 x10^3/uL (4.0-11.0)
[2016-03-09] MEDS: HYDROCODONE/APAP 5/325MG TABLET. PO PRN ×3 (05:43→18:19)
[2016-03-09] MEDS: IV NORMAL SALINE 1000ML BAG 1,000 ML IV SCH ×2 (05:46→17:18)
[2016-03-09 06:16] LABS: CALCIUM 8.8 mg/dL (8.5-10.1); GFR 55.6; POTASSIUM 3.1 mmol/L (3.5-5.1)
[2016-03-09 07:00] VITALS: BP 145/81
[2016-03-09] MEDS: CLOPIDOGREL BISULFATE 75 MG TABLET PO SCH (08:07)
[2016-03-09] MEDS: CHOLECALCIFEROL (VITAMIN D3) 1,000 UNIT TABLET PO SCH (08:07)
[2016-03-09] MEDS: ONDANSETRON PF 4 MG/2 ML VIAL. IV PRN (08:18)
[2016-03-09 11:00] VITALS: BP 138/86
--- NOTE | 2016-03-09 11:43 | PDOC ---
PROGRESS NOTES Chief Complaint Chief Complaint Severe dehydration AMS resolved. HENRI Leucocytosis with Bands better. Hypokalemia metabolic acidosis resolved. Mild hypotension Acute on chronic back, shoulder and extremity pains. Plan Follow blood cx cxr - no pneumonia replace potassium IV saline at 125ml/hr Pain control with oral norco avoid sedative avoid co2 narcosis SNU placement pending . PT/OT Labs reviwed, History of Present Illness History of Present Illness pain 10/10 no chest pain no fever no chills. Vitals Vitals Vital Signs Date Time Temp Pulse Resp B/P Pulse Ox O2 Delivery O2 Flow Rate FiO2 03/09/16 11:00 98.2 78 16 138/86 95 Room Air 98.2 Physical Exam General: Alert, Oriented X3, Other (sleepy, drowsy but not in respi distress) Heart: Regular rate, Normal S1, Normal S2 Lungs: Clear Abdomen: Normal bowel sounds, Soft, No tenderness, No hepatosplenomegaly, No masses Extremities: No clubbing, No cyanosis, No edema, Normal pulses, No tenderness/ swelling Labs LABS Laboratory Tests Test 03/09/16 04:00 03/09/16 04:10 White Blood Count 7.9x10^3/uL (4.0-11.0) Red Blood Count 4.10x10^6/uL (3.50-5.40) Hemoglobin 12.1g/dL (12.0-15.5) Hematocrit 37.2% (36.0-47.0) Mean Corpuscular Volume 91fL (79-100) Mean Corpuscular Hemoglobin 30pg (25-35) Mean Corpuscular Hemoglobin Concent 33g/dL (31-37) Red Cell Distribution Width 17.5% (11.5-14.5) Platelet Count 178x10^3/uL (140-400) Neutrophils (%) (Auto) 79% (31-73) Lymphocytes (%) (Auto) 7% (24-48) Monocytes (%) (Auto) 14% (0-9) Eosinophils (%) (Auto) 1% (0-3) Basophils (%) (Auto) 0% (0-3) Neutrophils # (Auto) 6.2x10^3uL (1.8-7.7) Lymphocytes # (Auto) 0.5x10^3/uL (1.0-4.8) Monocytes # (Auto) 1.1x10^3/uL (0.0-1.1) Eosinophils # (Auto) 0.1x10^3/uL (0.0-0.7) Basophils # (Auto) 0.0x10^3/uL (0.0-0.2) Sodium Level 142mmol/L (136-145) Potassium Level 3.1mmol/L (3.5-5.1) Chloride Level 111mmol/L (98-107) Carbon Dioxide Level 18mmol/L (21-32) Anion Gap 13 (6-14) Blood Urea Nitrogen 17mg/dL (7-20) Creatinine 1.0mg/dL (0.6-1.0) Estimated GFR (Cockcroft-Gault) 55.6 Glucose Level 84mg/dL (70-99) Calcium Level 8.8mg/dL (8.5-10.1) Assessment and Plan Assessmemt and Plan Problems Medical Problems: (1) Acute renal insufficiency Status: Acute (2) Dehydration Status: Acute (3) Opiate or related narcotic overdose Status: Acute (4) UTI (urinary tract infection) Status: Acute Problems: Comment Review of Relevant I have reviewed the following items rudy (where applicable) has been applied. Labs Laboratory Tests Test 03/07/16 11:55 03/07/16 12:15 03/08/16 05:57 03/09/16 04:00 White Blood Count 12.0x10^3/uL (4.0-11.0) 7.9x10^3/uL (4.0-11.0) Red Blood Count 3.92x10^6/uL (3.50-5.40) 4.10x10^6/uL (3.50-5.40) Hemoglobin 11.6g/dL (12.0-15.5) 12.1g/dL (12.0-15.5) Hematocrit 36.1% (36.0-47.0) 37.2% (36.0-47.0) Mean Corpuscular Volume 92fL (79-100) 91fL (79-100) Mean Corpuscular Hemoglobin 30pg (25-35) 30pg (25-35) Mean Corpuscular Hemoglobin Concent 32g/dL (31-37) 33g/dL (31-37) Red Cell Distribution Width 17.2% (11.5-14.5) 17.5% (11.5-14.5) Platelet Count 157x10^3/uL (140-400) 178x10^3/uL (140-400) Neutrophils (%) (Auto) 86% (31-73) 79% (31-73) Lymphocytes (%) (Auto) 4% (24-48) 7% (24-48) Monocytes (%) (Auto) 10% (0-9) 14% (0-9) Eosinophils (%) (Auto) 0% (0-3) 1% (0-3) Basophils (%) (Auto) 0% (0-3) 0% (0-3) Neutrophils # (Auto) 10.2x10^3uL (1.8-7.7) 6.2x10^3uL (1.8-7.7) Lymphocytes # (Auto) 0.5x10^3/uL (1.0-4.8) 0.5x10^3/uL (1.0-4.8) Monocytes # (Auto) 1.2x10^3/uL (0.0-1.1) 1.1x10^3/uL (0.0-1.1) Eosinophils # (Auto) 0.0x10^3/uL (0.0-0.7) 0.1x10^3/uL (0.0-0.7) Basophils # (Auto) 0.0x10^3/uL (0.0-0.2) 0.0x10^3/uL (0.0-0.2) Segmented Neutrophils % 38% (35-66) Band Neutrophils % 43% (0-9) Lymphocytes % 7% (24-48) Monocytes % 12% (0-10) Platelet Estimate Adequate (ADEQUATE) Anisocytosis Slight [place] Cells Mod Crenated Cell Present Prothrombin Time 15.1SEC (11.7-14.0) Prothromb Time International Ratio 1.3 (0.8-1.1) Sodium Level 136mmol/L (136-145) 141mmol/L (136-145) Potassium Level 3.6mmol/L (3.5-5.1) 3.0mmol/L (3.5-5.1) Chloride Level 101mmol/L (98-107) 107mmol/L (98-107) Carbon Dioxide Level 20mmol/L (21-32) 19mmol/L (21-32) Anion Gap 15 (6-14) 15 (6-14) Blood Urea Nitrogen 48mg/dL (7-20) 36mg/dL (7-20) Creatinine 2.6mg/dL (0.6-1.0) 1.6mg/dL (0.6-1.0) Estimated GFR (Cockcroft-Gault) 18.5 32.3 Glucose Level 93mg/dL (70-99) 70mg/dL (70-99) Calcium Level 8.8mg/dL (8.5-10.1) 8.3mg/dL (8.5-10.1) Ethyl Alcohol Level < 10mg/dL (0-10) Urine Collection Type Unknown Urine Color Yellow Urine Clarity Cloudy Urine pH 6.0 Urine Specific [place] 1.015 Urine Protein Tracemg/dL (NEG-TRACE) Urine Glucose (UA) Negativemg/dL (NEG) Urine Ketones (Stick) Negativemg/dL (NEG) Urine Blood Moderate (NEG) Urine Nitrite Negative (NEG) Urine Bilirubin Negative (NEG) Urine Urobilinogen Dipstick 1.0mg/dL (0.2 mg/dL) Urine Leukocyte Esterase Moderate (NEG) Urine RBC 1-2/HPF (0-2) Urine WBC >40/HPF (0-4) Urine Squamous Epithelial Cells Many/LPF Urine Bacteria Moderate/HPF (0-FEW) Urine Opiates Screen Pos (NEG) Urine Methadone Screen Neg (NEG) Urine Barbiturates Neg (NEG) Urine Phencyclidine Screen Neg (NEG) Urine Amphetamine/Methamphetamine Neg (NEG) Urine Benzodiazepines Screen Pos (NEG) Urine Cocaine Screen Neg (NEG) Urine Cannabinoids Screen Neg (NEG) Urine Ethyl Alcohol Neg (NEG) Test 03/09/16 04:10 Sodium Level 142mmol/L (136-145) Potassium Level 3.1mmol/L (3.5-5.1) Chloride Level 111mmol/L (98-107) Carbon Dioxide Level 18mmol/L (21-32) Anion Gap 13 (6-14) Blood Urea Nitrogen 17mg/dL (7-20) Creatinine 1.0mg/dL (0.6-1.0) Estimated GFR (Cockcroft-Gault) 55.6 Glucose Level 84mg/dL (70-99) Calcium Level 8.8mg/dL (8.5-10.1) Laboratory Tests Test 03/09/16 04:00 03/09/16 04:10 White Blood Count 7.9x10^3/uL (4.0-11.0) Red Blood Count 4.10x10^6/uL (3.50-5.40) Hemoglobin 12.1g/dL (12.0-15.5) Hematocrit 37.2% (36.0-47.0) Mean Corpuscular Volume 91fL (79-100) Mean Corpuscular Hemoglobin 30pg (25-35) Mean Corpuscular Hemoglobin Concent 33g/dL (31-37) Red Cell Distribution Width 17.5% (11.5-14.5) Platelet Count 178x10^3/uL (140-400) Neutrophils (%) (Auto) 79% (31-73) Lymphocytes (%) (Auto) 7% (24-48) Monocytes (%) (Auto) 14% (0-9) Eosinophils (%) (Auto) 1% (0-3) Basophils (%) (Auto) 0% (0-3) Neutrophils # (Auto) 6.2x10^3uL (1.8-7.7) Lymphocytes # (Auto) 0.5x10^3/uL (1.0-4.8) Monocytes # (Auto) 1.1x10^3/uL (0.0-1.1) Eosinophils # (Auto) 0.1x10^3/uL (0.0-0.7) Basophils # (Auto) 0.0x10^3/uL (0.0-0.2) Sodium Level 142mmol/L (136-145) Potassium Level 3.1mmol/L (3.5-5.1) Chloride Level 111mmol/L (98-107) Carbon Dioxide Level 18mmol/L (21-32) Anion Gap 13 (6-14) Blood Urea Nitrogen 17mg/dL (7-20) Creatinine 1.0mg/dL (0.6-1.0) Estimated GFR (Cockcroft-Gault) 55.6 Glucose Level 84mg/dL (70-99) Calcium Level 8.8mg/dL (8.5-10.1) Microbiology 03/07/16 Urine Culture - Preliminary, Resulted 03/07/16 Urine Culture Result 1 ([id number]) - Preliminary, Resulted Medications Current Medications Naloxone HCl 0.4 mg 0.4 mg 1X ONCE IV Last administered on 03/07/16 12:44; Start 03/07/16 at 12:30; Stop 03/07/16 at 12:31; Status DC Sodium Chloride 1,000 ml @ 1,000 mls/hr 1X ONCE IV Last administered on 14:01; Start 03/07/16 at 13:30; Stop 03/07/16 at 14:29; Status DC Ceftriaxone Sodium 1 gm/ Sodium Chloride 50 ml @ 100 mls/hr Q24H IV ; Start at 14:00; Status Cancel Ceftriaxone Sodium 50 ml @ 100 mls/hr 1X ONCE IV ; Start 03/07/16 at 13:45; Stop 03/07/16 at 14:14; Status Cancel Ceftriaxone Sodium 1 gm/ Sodium Chloride 50 ml @ 100 mls/hr Q24H IV Last administered on 03/08/16 14:37; Start 03/08/16 at 14:00; Stop 03/08/16 at 17:16 ; Status DC Ceftriaxone Sodium (Rocephin 1gm Ivpb For Omni) 50 ml @ 100 mls/hr 1X ONCE IV Last administered on 03/07/16 14:36; Start 03/07/16 at 14:00; Stop 03/07/16 at 14:29; Status DC Ondansetron HCl 4 mg 4 mg PRN Q8HRS PRN IV NAUSEA/VOMITING; Start 03/07/16 at 14:15; Stop 03/07/16 at 14:43; Status DC Sodium Chloride (Iv Sodium Chloride 0.9% 1000ml Bag) 1,000 ml @ 125 mls/hr Q8H IV Last administered on 03/08/16 08:20; Start 03/07/16 at 14:30; Stop at 14:29; Status DC Acetaminophen (Tylenol) 650 mg PRN Q4HRS PRN PO FEVER Last administered on 03/08 06:32; Start 03/07/16 at 14:15; Stop 03/08/16 at 14:14; Status DC Ondansetron HCl (Zofran) 4 mg PRN Q6HRS PRN IV NAUSEA/VOMITING Last administered on 03/09/16 08:18; Start 03/07/16 at 14:40 Vitamin D (Vitamin D3) 2,000 unit DAILY PO Last administered on 03/09/16 08:07 ; Start 03/08/16 at 09:00 Clopidogrel Bisulfate (Plavix) 75 mg [id number] PO Last administered on 08:07; Start 03/08/16 at 08:00 Atorvastatin Calcium (Lipitor) 80 mg QHS PO Last administered on 03/08/16 20: 52; Start 03/07/16 at 21:00 Influenza Virus Vaccine Quadrival (Fluarix Quad [id number] Syringe) 0.5 ml ONCE ONCE VAX IM ; Start 03/07/16 at 20:00; Stop 03/07/16 at 20:01; Status DC Potassium Chloride 40 meq 40 meq 1X ONCE PO Last administered on 03/08/16 11: 37; Start 03/08/16 at 11:30; Stop 03/08/16 at 11:31; Status DC Sodium Chloride (Iv Sodium Chloride 0.9% 500ml Bag) 500 ml @ 500 mls/hr 1X ONCE IV Last administered on 03/08/16 11:15; Start 03/08/16 at 11:15; Stop at 12:14; Status DC Acetaminophen/ Hydrocodone Bitart 1 tab 1 tab PRN Q6HRS PRN PO PAIN Last administered on 03/09/16 05:43; Start 03/08/16 at 11:30 Sodium Chloride (Iv Sodium Chloride 0.9% 1000ml Bag) 1,000 ml @ 75 mls/hr [id number] IV Last administered on 03/09/16 05:46; Start 03/08/16 at 15:45 Active Scripts Active Reported Tizanidine Hcl 4 Mg Tablet 1 Tab PO Q8HRS Vitamin D3 (Cholecalciferol (Vitamin D3)) 1,000 Unit Tablet 2,000 Unit PO HS Xanax (Alprazolam) 0.5 Mg Tablet 1 Tab PO TID Tramadol Hcl 50 Mg Tablet 50 Mg PO Q8HRS PRN Multivitamins (Multivitamin) 1 Each Tablet 1 Each PO Calcium + D3 Er Tablet (Calcium Carb & Cit/Vitamin D3) 1 Each Tablet.er 1 Each PO Atorvastatin Calcium 80 Mg Tablet 75 Mg PO HS Zolpidem Tartrate 10 Mg Tablet 10 Mg PO PRN QHS PRN Plavix (Clopidogrel Bisulfate) 75 Mg Tablet 75 Mg PO DAILY Buspirone Hcl 10 Mg Tablet 10 Mg PO BID Cymbalta (Duloxetine Hcl) 60 Mg Capsule.dr 60 Mg PO DAILY Vitals/I & O Vital Sign - Last 24 Hours 03/08/16 03/08/16 03/08/16 03/08/16 15:02 17:46 19:25 20:00 Temp 98.4 98.6 98.4 98.6 Pulse 76 75 Resp 20 16 B/P 138/85 141/84 Pulse Ox 97 97 95 O2 Delivery Room Air Room Air Room Air Room Air 03/08/16 03/08/16 03/09/16 03/09/16 22:45 23:36 00:36 03:10 Temp 98.2 98.5 98.2 98.5 Pulse 79 94 Resp 16 20 20 20 B/P 145/82 150/85 Pulse Ox 98 96 95 O2 Delivery Room Air Room Air 03/09/16 03/09/16 03/09/16 03/09/16 05:43 07:00 07:00 08:10 Temp 98.8 98.8 Pulse 75 Resp 20 16 B/P 145/81 Pulse Ox 96 96 94 O2 Delivery Room Air Room Air Room Air Room Air 03/09/16 11:00 Temp 98.2 98.2 Pulse 78 Resp 16 B/P 138/86 Pulse Ox 95 O2 Delivery Room Air Intake and Output 03/08/16 03/08/16 03/09/16 15:00 23:00 07:00 Intake Total 1850 ml Output Total 200 ml 350 ml 600 ml Balance -200 ml -350 ml 1250 ml TERE REAL MD Mar 09, 2016 11:43
[2016-03-09] MEDS ORDERED: POTASSIUM CHLORIDE 20 MEQ TABLET.ER. PO ONE (11:45)
[2016-03-09 15:00] VITALS: BP 152/79
[2016-03-09 19:25] VITALS: BP 122/62
[2016-03-09] MEDS: ATORVASTATIN CALCIUM 40 MG TABLET. PO SCH (21:00)
[2016-03-09 23:00] VITALS: BP 148/82
[2016-03-10] MEDS: HYDROCODONE/APAP 5/325MG TABLET. PO PRN ×3 (00:45→13:31)
[2016-03-10 03:29] VITALS: BP 154/73
[2016-03-10] MEDS: IV NORMAL SALINE 1000ML BAG 1,000 ML IV SCH (07:45)
[2016-03-10 07:47] VITALS: BP 177/75
[2016-03-10] MEDS: CHOLECALCIFEROL (VITAMIN D3) 1,000 UNIT TABLET PO SCH (08:40)
[2016-03-10] MEDS: CLOPIDOGREL BISULFATE 75 MG TABLET PO SCH (08:40)
[2016-03-10 10:48] VITALS: BP 147/89
--- NOTE | 2016-03-10 12:00 | PDOC ---
PROGRESS NOTES Chief Complaint Chief Complaint AMS ASSESSMENT AND PLAN: 1. Severe dehydration: resolved 2. AMS: 2/2 above. resolved 3. HENRI: 2/2 above 4. Leucocytosis with left shift: resolved. blood cult NGTD. no PNA by CXR. UA susp of infect, but cult only mixed urogenital kamaljit. 5. Hypotension: mild at admit. resolved 6. Hypokalemia: replets 7. Metabolic acidosis resolved. 8. Acute on chronic back/ shoulder and extremity pains: continue home regimen 9. Dispo: SNU Vitals Vitals Vital Signs Date Time Temp Pulse Resp B/P Pulse Ox O2 Delivery O2 Flow Rate FiO2 03/10/16 10:48 98.8 80 16 147/89 Room Air 98.8 03/10/16 07:30 98 Physical Exam General: Alert, Oriented X3, Other (sleepy, drowsy but not in respi distress) Heart: Regular rate, Normal S1, Normal S2 Lungs: Clear Abdomen: Normal bowel sounds, Soft, No tenderness, No hepatosplenomegaly, No masses Extremities: No clubbing, No cyanosis, No edema, Normal pulses, No tenderness/ swelling Review of Systems Review of Systems feels ok, still weak, but ready to go to rehab Comment Review of Relevant I have reviewed the following items rudy (where applicable) has been applied. Labs Laboratory Tests Test 03/09/16 04:00 03/09/16 04:10 White Blood Count 7.9x10^3/uL (4.0-11.0) Red Blood Count 4.10x10^6/uL (3.50-5.40) Hemoglobin 12.1g/dL (12.0-15.5) Hematocrit 37.2% (36.0-47.0) Mean Corpuscular Volume 91fL (79-100) Mean Corpuscular Hemoglobin 30pg (25-35) Mean Corpuscular Hemoglobin Concent 33g/dL (31-37) Red Cell Distribution Width 17.5% (11.5-14.5) Platelet Count 178x10^3/uL (140-400) Neutrophils (%) (Auto) 79% (31-73) Lymphocytes (%) (Auto) 7% (24-48) Monocytes (%) (Auto) 14% (0-9) Eosinophils (%) (Auto) 1% (0-3) Basophils (%) (Auto) 0% (0-3) Neutrophils # (Auto) 6.2x10^3uL (1.8-7.7) Lymphocytes # (Auto) 0.5x10^3/uL (1.0-4.8) Monocytes # (Auto) 1.1x10^3/uL (0.0-1.1) Eosinophils # (Auto) 0.1x10^3/uL (0.0-0.7) Basophils # (Auto) 0.0x10^3/uL (0.0-0.2) Sodium Level 142mmol/L (136-145) Potassium Level 3.1mmol/L (3.5-5.1) Chloride Level 111mmol/L (98-107) Carbon Dioxide Level 18mmol/L (21-32) Anion Gap 13 (6-14) Blood Urea Nitrogen 17mg/dL (7-20) Creatinine 1.0mg/dL (0.6-1.0) Estimated GFR (Cockcroft-Gault) 55.6 Glucose Level 84mg/dL (70-99) Calcium Level 8.8mg/dL (8.5-10.1) Microbiology 03/08/16 Blood Culture - Preliminary, Resulted NO GROWTH AFTER 1 DAY 03/07/16 Urine Culture - Final, Complete 03/07/16 Urine Culture Result 1 ([place]) - Final, Complete Medications Current Medications Naloxone HCl 0.4 mg 0.4 mg 1X ONCE IV Last administered on 03/07/16t 12:44; Start 03/07/16 at 12:30; Stop 03/07/16 at 12:31; Status DC Sodium Chloride 1,000 ml @ 1,000 mls/hr 1X ONCE IV Last administered on t 14:01; Start 03/07/16 at 13:30; Stop 03/07/16 at 14:29; Status DC Ceftriaxone Sodium 1 gm/ Sodium Chloride 50 ml @ 100 mls/hr Q24H IV ; Start at 14:00; Status Cancel Ceftriaxone Sodium 50 ml @ 100 mls/hr 1X ONCE IV ; Start 03/07/16 at 13:45; Stop 03/07/16 at 14:14; Status Cancel Ceftriaxone Sodium 1 gm/ Sodium Chloride 50 ml @ 100 mls/hr Q24H IV Last administered on 03/08/16 14:37; Start 03/08/16 at 14:00; Stop 03/08/16 at 17:16 ; Status DC Ceftriaxone Sodium (Rocephin 1gm Ivpb For Omni) 50 ml @ 100 mls/hr 1X ONCE IV Last administered on 03/07/16 14:36; Start 03/07/16 at 14:00; Stop 03/07/16 at 14:29; Status DC Ondansetron HCl 4 mg 4 mg PRN Q8HRS PRN IV NAUSEA/VOMITING; Start 03/07/16 at 14:15; Stop 03/07/16 at 14:43; Status DC Sodium Chloride (Iv Sodium Chloride 0.9% 1000ml Bag) 1,000 ml @ 125 mls/hr Q8H IV Last administered on 03/08/16 08:20; Start 03/07/16 at 14:30; Stop at 14:29; Status DC Acetaminophen (Tylenol) 650 mg PRN Q4HRS PRN PO FEVER Last administered on 03/08 06:32; Start 03/07/16 at 14:15; Stop 03/08/16 at 14:14; Status DC Ondansetron HCl (Zofran) 4 mg PRN Q6HRS PRN IV NAUSEA/VOMITING Last administered on 03/09/16 08:18; Start 03/07/16 at 14:40 Vitamin D (Vitamin D3) 2,000 unit DAILY PO Last administered on 03/10/16 08:40 ; Start 03/08/16 at 09:00 Clopidogrel Bisulfate (Plavix) 75 mg [id number] PO Last administered on 08:40; Start 03/08/16 at 08:00 Atorvastatin Calcium (Lipitor) 80 mg QHS PO Last administered on 03/08/16 20: 52; Start 03/07/16 at 21:00 Influenza Virus Vaccine Quadrival (Fluarix Quad [id number] Syringe) 0.5 ml ONCE ONCE VAX IM ; Start 03/07/16 at 20:00; Stop 03/07/16 at 20:01; Status DC Potassium Chloride 40 meq 40 meq 1X ONCE PO Last administered on 03/08/16 11: 37; Start 03/08/16 at 11:30; Stop 03/08/16 at 11:31; Status DC Sodium Chloride (Iv Sodium Chloride 0.9% 500ml Bag) 500 ml @ 500 mls/hr 1X ONCE IV Last administered on 03/08/16 11:15; Start 03/08/16 at 11:15; Stop at 12:14; Status DC Acetaminophen/ Hydrocodone Bitart 1 tab 1 tab PRN Q6HRS PRN PO PAIN Last administered on 03/10/16 07:30; Start 03/08/16 at 11:30 Sodium Chloride (Iv Sodium Chloride 0.9% 1000ml Bag) 1,000 ml @ 75 mls/hr [id number] IV Last administered on 03/09/16 17:18; Start 03/08/16 at 15:45 Potassium Chloride (Klor-Con) 40 meq 1X ONCE PO Last administered on 12:10; Start 03/09/16 at 11:45; Stop 03/09/16 at 11:46; Status DC Active Scripts Active Reported Tizanidine Hcl 4 Mg Tablet 1 Tab PO Q8HRS Vitamin D3 (Cholecalciferol (Vitamin D3)) 1,000 Unit Tablet 2,000 Unit PO HS Xanax (Alprazolam) 0.5 Mg Tablet 1 Tab PO TID Tramadol Hcl 50 Mg Tablet 50 Mg PO Q8HRS PRN Multivitamins (Multivitamin) 1 Each Tablet 1 Each PO Calcium + D3 Er Tablet (Calcium Carb & Cit/Vitamin D3) 1 Each Tablet.er 1 Each PO Atorvastatin Calcium 80 Mg Tablet 75 Mg PO HS Zolpidem Tartrate 10 Mg Tablet 10 Mg PO PRN QHS PRN Plavix (Clopidogrel Bisulfate) 75 Mg Tablet 75 Mg PO DAILY Buspirone Hcl 10 Mg Tablet 10 Mg PO BID Cymbalta (Duloxetine Hcl) 60 Mg Capsule.dr 60 Mg PO DAILY Vitals/I & O Vital Sign - Last 24 Hours 03/09/16 03/09/16 03/09/16 03/09/16 12:09 15:00 18:19 19:25 Temp 98.1 100.0 98.1 100.0 Pulse 64 76 Resp 16 16 B/P 152/79 122/62 Pulse Ox 95 99 99 96 O2 Delivery Room Air Room Air Room Air Room Air 103/09/16 03/10/16 03/10/16 20:00 23:00 00:45 01:45 Temp 98.2 98.2 Pulse 74 Resp 16 20 20 B/P 148/82 Pulse Ox 95 96 96 O2 Delivery Room Air Room Air Room Air 03/10/16 03/10/16 03/10/16 03/10/16 03:29 07:30 07:47 08:21 Temp 97.7 97.9 97.7 97.9 Pulse 77 62 Resp 16 18 18 B/P 154/73 177/75 Pulse Ox 96 98 O2 Delivery Room Air Room Air Room Air Room Air 03/10/16 03/10/16 08:35 10:48 Temp 98.8 98.8 Pulse 80 Resp 16 B/P 147/89 O2 Delivery Room Air Room Air Intake and Output 03/09/16 03/09/16 03/10/16 15:00 23:00 07:00 Intake Total 600 ml 900 ml Balance 600 ml 900 ml DARRELL LOPEZ MD Mar 10, 2016 12:00
--- NOTE | 2016-03-10 12:45 | PDOC ---
ORTHO PROGRESS NOTES Subjective please see full note Vitals Vital Signs Date Time Temp Pulse Resp B/P Pulse Ox O2 Delivery O2 Flow Rate FiO2 03/10/16 10:48 98.8 80 16 147/89 Room Air 98.8 03/10/16 07:30 98 Labs Laboratory Tests Test 03/09/16 04:00 03/09/16 04:10 White Blood Count 7.9x10^3/uL (4.0-11.0) Red Blood Count 4.10x10^6/uL (3.50-5.40) Hemoglobin 12.1g/dL (12.0-15.5) Hematocrit 37.2% (36.0-47.0) Mean Corpuscular Volume 91fL (79-100) Mean Corpuscular Hemoglobin 30pg (25-35) Mean Corpuscular Hemoglobin Concent 33g/dL (31-37) Red Cell Distribution Width 17.5% (11.5-14.5) Platelet Count 178x10^3/uL (140-400) Neutrophils (%) (Auto) 79% (31-73) Lymphocytes (%) (Auto) 7% (24-48) Monocytes (%) (Auto) 14% (0-9) Eosinophils (%) (Auto) 1% (0-3) Basophils (%) (Auto) 0% (0-3) Neutrophils # (Auto) 6.2x10^3uL (1.8-7.7) Lymphocytes # (Auto) 0.5x10^3/uL (1.0-4.8) Monocytes # (Auto) 1.1x10^3/uL (0.0-1.1) Eosinophils # (Auto) 0.1x10^3/uL (0.0-0.7) Basophils # (Auto) 0.0x10^3/uL (0.0-0.2) Sodium Level 142mmol/L (136-145) Potassium Level 3.1mmol/L (3.5-5.1) Chloride Level 111mmol/L (98-107) Carbon Dioxide Level 18mmol/L (21-32) Anion Gap 13 (6-14) Blood Urea Nitrogen 17mg/dL (7-20) Creatinine 1.0mg/dL (0.6-1.0) Estimated GFR (Cockcroft-Gault) 55.6 Glucose Level 84mg/dL (70-99) Calcium Level 8.8mg/dL (8.5-10.1) Assessment and Plan shoulder doing well, not much pain there. cont PT/OT for shoulder she wants to go home with [facility] f/u in my clinic Mar 13 KEVIN ANTUNEZ II, MD Mar 10, 2016 12:45
--- NOTE | 2016-03-10 14:09 | DISCH ---
DISCHARGE INSTRUCTIONS Condition on Discharge Condition on Discharge: Stable Activity After Discharge Activity Instructions for Disc: Resume previous activity Diet after Discharge Diet after Discharge: Regular Contacting the DR. after DC Call your doctor for: If your condition worsens Follow-Up Follow up with: PT this week. Follow Up With: Dr Camejo as previously arranged DARRELL LOPEZ MD Mar 10, 2016 14:09
[2016-03-10 15:00] VITALS: BP 158/74
--- NOTE | 2016-03-10 19:04 | CONS ---
DATE OF CONSULTATION: 03/10/2016 REFERRING PROVIDER: Dr. Cope. CONSULTING PROVIDER: Justin Antunez MD. REASON FOR CONSULTATION: Right shoulder replacement. CHIEF COMPLAINT: Left knee pain and right upper trapezius pain. HISTORY OF PRESENT ILLNESS: The patient is a 65-year-old female, who underwent reverse total shoulder with myself approximately 3 months ago. She had been doing well at home and was admitted for altered mental status likely attributable to combination of narcotic and possibly UTI. She has been in the hospital since 03/07/2016 and tells me she feels that she is doing much better. She is complaining mainly of left knee pain. She also has tingling at the tips of digits 2 and 3. She tells me that she feels like her shoulder is doing well and has been working harder at rehab. She describes that she does not have much pain in her right shoulder anymore. No abnormal sensations in her right upper extremity. PAST MEDICAL HISTORY: 1. History of stroke, gastric bypass, strangulated hernia. 2. DJD. 3. Right ankle fusion. 4. Right reverse total shoulder. 5. PTSD. 6. Hysterectomy. 7. History of blood transfusion. FAMILY HISTORY: Positive for heart attack and hypertension. SOCIAL HISTORY: She lives at home. No tobacco. She does use occasional alcohol. MEDICATIONS: Reviewed. Please see MRAD. ALLERGIES: CODEINE. PHYSICAL EXAMINATION: GENERAL: The patient is alert and oriented. Her speech is a little slow, but she answers and asks questions appropriately. She has good insight. HEENT: Head normocephalic, atraumatic. Extraocular muscles are intact. CARDIOVASCULAR: Regular rate and rhythm. No edema at her ankles. RESPIRATIONS: Clear with symmetric chest rise. ABDOMEN: Soft, nondistended. EXTREMITIES: Examination of right upper extremity reveals a well-healed incision over her deltopectoral region of her right shoulder. Motor and sensation are intact in median, radial, and ulnar nerves in right upper extremity. Radial pulse 2+. Active forward elevation is 150 and external rotation is 30 degrees. Internal rotation is to approximately the buttock. LABORATORY DATA: Reviewed. Most recent labs from 03/09/2016 demonstrate normal white count. From March 09, her potassium was 3.1. Her UA shows moderate leukocyte esterase with greater than 40 whites and presence of bacteria. Urine culture demonstrated mixed urogenital kamaljit less than 10,000 colonies per milliliter. IMPRESSION: 1. Admitted for dehydration. 2. Altered mental status. 3. Urinary tract infection. 4. She has a history of a right reverse total shoulder. PLAN: I did discuss that I think she is doing very well from her shoulder rehab. I recommended adding in more periscapular exercises to address her upper trapezius pain. She has a followup appointment in 3 days in my clinic. We will obtain knee x-rays and address the knee at that time. From my standpoint, she can be discharged home today. JUSTIN ANTUNEZ MD DR: KENNY/amberly JOB#: [id number] / [id number] MAXIMILIAN
--- NOTE | 2016-03-11 18:42 | DS ---
DATE OF DISCHARGE: 03/10/2016 CHIEF COMPLAINT: Acute mental status changes. HOSPITAL COURSE: The patient is a 65-year-old woman who presented to the Emergency Room with acute mental status changes which were attributed to severe dehydration at time of admission. She also had acute kidney injury from same. This thankfully responded to IV hydration and mental status returned to baseline. She did have elevated WBC count with left shift, which have resolved during hospitalization. Blood cultures remained no growth and no other sign of infection was found, including urine. An UA initially was suspicious for infection, but culture showed only mixed urogenital kamaljit. With resolution of all her medical issues, the only remaining issue was shoulder pain, chronic, status post shoulder replacement on the right. Dr. Camejo, her orthopedic surgeon saw her and recommended further followup with physical therapy and office visits. She was recommended for SNF placement, but preferred going home with home PT already set up. PHYSICAL EXAMINATION: Please refer to note from same day discharge day, March 10. DISCHARGE DISPOSITION: To home with services. DISCHARGE CONDITION: Improved. DISCHARGE DIAGNOSES: Severe dehydration, acute kidney injury, acute mental status changes. DISCHARGE MEDICATIONS: Please refer to MAR. DISCHARGE INSTRUCTIONS: The patient will follow up with PCP in 1 to 2 weeks and make an appointment with Dr. Camejo as discussed. Greater than 30 minutes were spent in arranging discharge. DARRELL LOPEZ MD DR: BENY/nts JOB#: [id number] / [id number] OFE Hawkins APRN
== END 2016-03-10 16:45 | disposition home or self-care (01) | DRG 917 ==
LOC: ER 11:42 → 6 SOUTH 13:45
PROVIDERS: ADMIT Internal Medicine; ATTEND Internal Medicine
DX: T40.2X1A Poisoning by other opioids, accidental (unintentional), initial encounter (principal); G92 Toxic encephalopathy; N17.9 Acute kidney failure, unspecified; E87.2 Acidosis; E87.6 Hypokalemia; F43.10 Post-traumatic stress disorder, unspecified; G89.29 Other chronic pain; Z96.611 Presence of right artificial shoulder joint; Z96.659 Presence of unspecified artificial knee joint; M19.90 Unspecified osteoarthritis, unspecified site; D72.829 Elevated white blood cell count, unspecified; I95.9 Hypotension, unspecified; Z88.5 Allergy status to narcotic agent; Z98.84 Bariatric surgery status; Z90.710 Acquired absence of both cervix and uterus; Z82.49 Family history of ischemic heart disease and other diseases of the circulatory system; Z86.73 Personal history of transient ischemic attack (TIA), and cerebral infarction without residual deficits
CPT/HCPCS: 36415; 71010; 80048; 81001; 85007; 85027; 85610; 87040; 87086; 93005; 96361; 96374; 96375; G0480; G0481; J0690; J0696; J2310; J2405; J7030; J7040; 97140; 97530; 99285-25

== ENCOUNTER 2016-08-27 12:46 | Observation (INO) | payer MEDICARE ==
[~2016-08-27] VITALS: Ht 157.5 cm; Wt 89.1 kg
[~2016-08-27 12:46] MED LIST changes: -CLOP75TA27 PO; +CLOP75TA57 PO; -KRIL1CAP10 PO; +KRIL1CAP11 PO; -UBID200C4 PO; +UBID200C7 PO
--- NOTE | 2016-08-27 12:55 | PHYS DOC ---
Past Medical History Past Medical History: CVA Additional Past Medical Histor: ptsd Past Surgical History: Knee Replacement Additional Past Surgical Histo: fusion rt foot, hernia, gastric bypass, rt shoulder surgery Alcohol Use: None Drug Use: None Adult General Chief Complaint Chief Complaint: ABDOMINAL PAIN HPI HPI Patient is a 65 year old female who presents with I'll pain. He started several days ago in her epigastric area where her ventral hernia is and then has moved over to her right upper quadrant and radiates around, she denies any nausea or vomiting. She states she was seen by her primary care physician who ordered a CT scan with by mouth and IV contrast that was done this morning. She states the pain is gotten worse she's been taking Percocet without any relief. She states nothing makes the pain better or worse Percocet helps but is not control at this time. She denies any chest pain or shortness of breath associated with these episodes. She's had multiple abdominal surgeries including gastric bypass in hysterectomy and cholecystectomy. She states her last surgery was more than 10 years ago in [place] she states also she's had a ventral hernia that flares up from time to time. She also complains that she's had an been having good bowel movements for the last several days. She's had small soft ones that do not her normal ones. Review of Systems Review of Systems Constitutional: Denies fever or chills [] Eyes: Denies change in visual acuity, redness, or eye pain [] HENT: Denies nasal congestion or sore throat [] Respiratory: Denies cough or shortness of breath [] Cardiovascular: No additional information not addressed in HPI [] GI: Denies nausea, vomiting, bloody stools or diarrhea, positive for abdominal pain. : Denies dysuria or hematuria [] Musculoskeletal: Denies back pain or joint pain [] Integument: Denies rash or skin lesions [] Neurologic: Denies headache, focal weakness or sensory changes [] Endocrine: Denies polyuria or polydipsia [] Current Medications Current Medications Current Medications Medications (Trade) Dose Ordered Sig/Leola Start Time Stop Time Status Last Admin Dose Admin Morphine Sulfate 2 mg PRN Q15MIN PRN 08/27/16 13:30 08/28/16 13:29 08/27/16 14:12 2 MG Ondansetron HCl (Zofran) 4 mg 1X ONCE 08/27/16 13:30 08/27/16 13:31 DC 08/27/16 14:13 4 MG Sodium Chloride 1,000 ml @ 1,000 mls/hr Q1H 08/27/16 13:21 08/27/16 14:20 DC 08/27/16 14:12 1,000 MLS/HR Allergies Allergies Allergies Coded Allergies Type Severity Reaction Last Updated Verified codeine Adverse Reaction Mild cramp, vomit 12/19/15 Yes Physical Exam Physical Exam Constitutional: Well developed, well nourished, no acute distress, non-toxic appearance. [] HENT: Normocephalic, atraumatic, bilateral external ears normal, oropharynx moist, no oral exudates, nose normal. [] Eyes: PERRLA, EOMI, conjunctiva normal, no discharge. [] Neck: Normal range of motion, no tenderness, supple, no stridor. [] Cardiovascular:Heart rate regular rhythm, no murmur [] Lungs & Thorax: Bilateral breath sounds clear to auscultation [] Abdomen: Bowel sounds hypoactive, soft, tender to palpation in the right upper quadrant, no rebound or guarding, no masses, no pulsatile masses. [] Skin: Warm, dry, no erythema, no rash. [] Back: No tenderness, no CVA tenderness. [] Extremities: No tenderness, no cyanosis, no clubbing, ROM intact, no edema. [] Neurologic: Alert and oriented X 3, normal motor function, normal sensory function, no focal deficits noted. [] Psychologic: Affect normal, judgement normal, mood normal. [] Current Patient Data Vital Signs Vital Signs Date Time Temp Pulse Resp B/P (MAP) Pulse Ox O2 Delivery O2 Flow Rate FiO2 08/27/16 12:55 97.4 74 18 122/76 (91) 97 Room Air 97.4 Lab Values Laboratory Tests Test 08/27/16 12:53 08/27/16 13:05 Urine Collection Type Unknown Urine Color Yellow Urine Clarity Clear Urine pH 6.0 Urine Specific [place] >=1.030 Urine Protein Negative mg/dL (NEG-TRACE) Urine Glucose (UA) Negative mg/dL (NEG) Urine Ketones (Stick) Negative mg/dL (NEG) Urine Blood Negative (NEG) Urine Nitrite Negative (NEG) Urine Bilirubin Negative (NEG) Urine Urobilinogen Dipstick 0.2 mg/dL (0.2 mg/dL) Urine Leukocyte Esterase Negative (NEG) Urine RBC Rare /HPF (0-2) Urine WBC Rare /HPF (0-4) Urine Squamous Epithelial Cells Few /LPF Urine Bacteria 0 /HPF (0-FEW) White Blood Count 4.4 x10^3/uL (4.0-11.0) Red Blood Count 4.47 x10^6/uL (3.50-5.40) Hemoglobin 13.7 g/dL (12.0-15.5) Hematocrit 41.1 % (36.0-47.0) Mean Corpuscular Volume 92 fL (79-100) Mean Corpuscular Hemoglobin 31 pg (25-35) Mean Corpuscular Hemoglobin Concent 33 g/dL (31-37) Red Cell Distribution Width 14.2 % (11.5-14.5) Platelet Count 203 x10^3/uL (140-400) Neutrophils (%) (Auto) 69 % (31-73) Lymphocytes (%) (Auto) 13 % (24-48) L Monocytes (%) (Auto) 14 % (0-9) H Eosinophils (%) (Auto) 3 % (0-3) Basophils (%) (Auto) 1 % (0-3) Neutrophils # (Auto) 3.0 x10^3uL (1.8-7.7) Lymphocytes # (Auto) 0.6 x10^3/uL (1.0-4.8) L Monocytes # (Auto) 0.6 x10^3/uL (0.0-1.1) Eosinophils # (Auto) 0.1 x10^3/uL (0.0-0.7) Basophils # (Auto) 0.0 x10^3/uL (0.0-0.2) Prothrombin Time 12.3 SEC (11.7-14.0) Prothrombin Time INR 1.0 (0.8-1.1) PTT 31 SEC (24-38) Sodium Level 135 mmol/L (136-145) L Potassium Level 3.7 mmol/L (3.5-5.1) Chloride Level 98 mmol/L (98-107) Carbon Dioxide Level 28 mmol/L (21-32) Anion Gap 9 (6-14) Blood Urea Nitrogen 13 mg/dL (7-20) Creatinine 1.0 mg/dL (0.6-1.0) Estimated GFR (Cockcroft-Gault) 55.6 Glucose Level 105 mg/dL (70-99) H Calcium Level 9.6 mg/dL (8.5-10.1) Total Bilirubin 0.7 mg/dL (0.2-1.0) Direct Bilirubin 0.1 mg/dL (0.0-0.2) Aspartate Amino Transferase (AST) 30 U/L (15-37) Alanine Aminotransferase (ALT) 20 U/L (14-59) Alkaline Phosphatase 109 U/L (46-116) Creatine Kinase 171 U/L (26-192) Creatine Kinase MB (Mass) 3.5 ng/mL (0.0-3.6) Creatine Kinase MB Relative Index 2.0 % (0-4) Troponin I Quantitative < 0.017 ng/mL (0.000-0.055) Total Protein 7.3 g/dL (6.4-8.2) Albumin 3.9 g/dL (3.4-5.0) Lipase 65 U/L (73-393) L Laboratory Tests 08/27/16 13:05 Laboratory Tests 08/27/16 13:05 EKG EKG EKG shows sinus rhythm with rate of [address] elevations Eboni T- wave inversions in lead 3, aVF, left axis deviation noted, QTC 440 ms, as interpreted by me. Radiology/Procedures Radiology/Procedures [] Impressions: Abdominal pain Course & Med Decision Making Course & Med Decision Making Pertinent Labs and Imaging studies reviewed. (See chart for details) CT scan from [facility] imaging center reports 1: no evidence of bowel obstruction, 2 intrahepatic and a troponin biliary duct dilation seen, 3 couple of cystic lesions identified in the liver is some low attenuation lesions of 2 small to be characterized on this exam, for focus of low attenuation the posterior aspect of left kidney they recommend renal ultrasound or renal protocol MRI to further evaluate. She was given IV fluids, Zofran, morphine and her pain is better now. She's being admitted to Dr. Cabrera in stable condition for pain control. Orders are written. Patient is agreeable to the plan. Dragon Disclaimer Dragon Disclaimer This electronic medical record was generated, in whole or in part, using a voice recognition dictation system. Departure Departure Impression: Primary Impression: Abdominal pain Disposition: 09 ADMITTED INPATIENT Admitting Physician: Glenis Cabrera Condition: STABLE Referrals: OFE ESTRADA APRN (PCP) Problem Qualifiers Primary Impression: Abdominal pain Abdominal location: generalized Qualified Codes: R10.84 - Generalized abdominal pain REINA BOJORQUEZ MD Aug 27, 2016 12:55
[2016-08-27] MEDS ORDERED: IV NORMAL SALINE 1000ML BAG 1,000 ML IV SCH (13:21)
[2016-08-27] MEDS ORDERED: MORPHINE SULFATE 2 MG/ML DISP.SYRIN. IV/SQ PRN (13:30)
[2016-08-27] MEDS ORDERED: ONDANSETRON PF 4 MG/2 ML VIAL. IV ONE (13:30)
[2016-08-27 13:31] LABS: BASO % 1 % (0-3); EOS % 3 % (0-3); HEMATOCRIT 41.1 % (36.0-47.0); HEMOGLOBIN 13.7 g/dL (12.0-15.5); LYMPH # 0.6 x10^3/uL (1.0-4.8); LYMPH % 13 % (24-48); MEAN CORPUSCULAR HEMOGLOBIN 31 pg (25-35); MEAN CORPUSCULAR HGB CONC 33 g/dL (31-37); MEAN CORPUSCULAR VOLUME 92 fL (79-100); MONO % 14 % (0-9); NEUT % 69 % (31-73); PLATELET COUNT 203 x10^3/uL (140-400); RED BLOOD COUNT 4.47 x10^6/uL (3.50-5.40); RED CELL DISTRIBUTION WIDTH 14.2 % (11.5-14.5); WHITE BLOOD COUNT 4.4 x10^3/uL (4.0-11.0)
[2016-08-27 13:32] LABS: BILIRUBIN,URINE NEGATIVE (NEG); GLUCOSE,URINE NEGATIVE (NEG); NITRITE,URINE NEGATIVE (NEG); PROTEIN,URINE NEGATIVE (NEG-TRACE); UROBILINOGEN,URINE 0.2 mg/dL (0.2 mg/dL)
[2016-08-27 13:39] LABS: CALCIUM 9.6 mg/dL (8.5-10.1); GFR 55.6; POTASSIUM 3.7 mmol/L (3.5-5.1); PROTHROMBIN TIME PATIENT 12.3 SEC (11.7-14.0)
[2016-08-27 13:42] LABS: BACTERIA,URINE 0 /HPF (0-FEW); RBC,URINE RARE /HPF (0-2); SQUAMOUS EPITHELIAL CELL,UR FEW /LPF; WBC,URINE RARE /HPF (0-4)
[2016-08-27 13:45] LABS: ALBUMIN 3.9 g/dL (3.4-5.0); DIRECT BILIRUBIN 0.1 mg/dL (0.0-0.2); TOTAL BILIRUBIN 0.7 mg/dL (0.2-1.0); TOTAL PROTEIN 7.3 g/dL (6.4-8.2)
[2016-08-27 13:54] LABS: CKMB MASS 3.5 ng/mL (0.0-3.6)
[2016-08-27] MEDS ORDERED: MORPHINE SULFATE 2 MG/ML DISP.SYRIN. IV PRN (14:45)
[2016-08-27] MEDS ORDERED: ONDANSETRON PF 4 MG/2 ML VIAL. IV PRN ×2 (14:45→16:15)
--- NOTE | 2016-08-27 15:32 | RAD ---
INDICATION: Abdominal pain. COMPARISON: None. TECHNIQUE: Grayscale and color ultrasound images obtained through the abdomen. FINDINGS: Aorta/IVC: Partially seen secondary to overlying bowel gas but not grossly dilated visualized portion. Pancreas: Poorly seen but visualized portion of pancreatic duct appears dilated up to 4-5 mm. Liver: 62 x 58 mm cystic lesion within. Gallbladder: Removed Common Bile Duct: 14 mm Right Kidney: No hydronephrosis. Left Kidney: No hydronephrosis. Spleen: Unremarkable. IMPRESSION: Bile duct dilation is identified postcholecystectomy. This is a commonly seen finding postoperatively but if the patient is having symptoms within the region a distal obstructive process such as a stricture, stone or lesion is within the differential. The pancreatic duct is also dilated. Cystic lesion of liver.
--- NOTE | 2016-08-27 16:09 | PDOC1 ---
History and Physical Date of Admission Date of Admission 08/27/16 Identification/Chief Complaint Chief Complaint abd pain Problems: Source Source: Chart review, Patient History of Present Illness History of Present Illness HPI HPI Patient is a 65 year old female came for RUQ pain for 3 days. Pt has had multiple abd sx, including gallbladder, diaphram hernia repair, gastric bypass sx, hysterectomy, started to feel RUQ pain since Thursday, low po intake, nausea,no vomiting. The pain is severe, 8/10, radiating to back. She went to see her PCP, who ordered abd CT , as per ERP it was normal except some renal mass? She states the pain is gotten worse she's been taking Percocet without any relief. Denies fever, chills, vomiting, chest pain. Usually has normal BM bid, constipation on Thursday, but later better with stool softner. h/o CVA 2 times, living alone now, in senior living. ER US showed bile duct and pancreatic duct dilation, kidney ok. Past Medical History Past Medical History cva Past Surgical History Past Surgical History Knee Replacement Additional Past Surgical Histo: fusion rt foot, hernia, gastric bypass, rt shoulder surgery Past Surgical History: Cholecystectomy, Other Family History Family History: Hypertension Social History Smoke: No ALCOHOL: none Drugs: None, Other Current Problem List Problem List Problems Medical Problems: (1) Abdominal pain Status: Acute Current Medications Current Medications Current Medications Medications (Trade) Dose Ordered Sig/Leola Start Time Stop Time Status Last Admin Dose Admin Morphine Sulfate 2 mg PRN Q2HR PRN 08/27/16 14:45 08/28/16 14:44 Ondansetron HCl (Zofran) 4 mg PRN Q8HRS PRN 08/27/16 14:45 08/28/16 14:44 Sodium Chloride 1,000 ml @ 1,000 mls/hr Q1H 08/27/16 13:21 08/27/16 14:20 DC 08/27/16 14:12 1,000 MLS/HR Allergies Allergies Allergies Coded Allergies Type Severity Reaction Last Updated Verified codeine Adverse Reaction Mild cramp, vomit 12/19/15 Yes ROS Review of System CONSTITUTIONAL: No fever or chills EYES: No recent changes SKIN: No rash or itching CARDIOVASCULAR: No chest pain, syncope, palpitations, or edema RESPIRATORY: No SOB or cough GASTROINTESTINAL: No nausea, vomiting or abdominal pain NEUROLOGICAL: No headaches or weakness ENDOCRINE: No cold or heat intolerance GENITOURINARY: No urgency or frequency of urination MUSCULOSKELETAL: No back pain or joint pain LYMPHATICS: No enlarged lymph nodes PSYCHIATRIC: No anxiety or depression Physical Exam Physical Exam GEN.: No apparent distress. Alert and oriented. HEENT: Head is normocephalic, atraumatic NECK: Supple. LUNGS: Clear to auscultation. HEART: RRR, S1, S2 present. Peripheral pulses intact ABDOMEN: Soft, Positive bowel sounds. RUQ tenderness, no guarding or rebound EXTREMITIES: Without any cyanosis. NEUROLOGIC: Normal speech, normal tone PSYCHIATRIC: Normal affect, normal mood. SKIN: No ulcerations Vitals Vitals Vital Signs Date Time Temp Pulse Resp B/P (MAP) Pulse Ox O2 Delivery O2 Flow Rate FiO2 08/27/16 12:55 97.4 74 18 122/76 (91) 97 Room Air 97.4 Labs Labs Laboratory Tests Test 08/27/16 12:53 08/27/16 13:05 Urine Collection Type Unknown Urine Color Yellow Urine Clarity Clear Urine pH 6.0 Urine Specific [place] >=1.030 Urine Protein Negative mg/dL (NEG-TRACE) Urine Glucose (UA) Negative mg/dL (NEG) Urine Ketones (Stick) Negative mg/dL (NEG) Urine Blood Negative (NEG) Urine Nitrite Negative (NEG) Urine Bilirubin Negative (NEG) Urine Urobilinogen Dipstick 0.2 mg/dL (0.2 mg/dL) Urine Leukocyte Esterase Negative (NEG) Urine RBC Rare /HPF (0-2) Urine WBC Rare /HPF (0-4) Urine Squamous Epithelial Cells Few /LPF Urine Bacteria 0 /HPF (0-FEW) White Blood Count 4.4 x10^3/uL (4.0-11.0) Red Blood Count 4.47 x10^6/uL (3.50-5.40) Hemoglobin 13.7 g/dL (12.0-15.5) Hematocrit 41.1 % (36.0-47.0) Mean Corpuscular Volume 92 fL (79-100) Mean Corpuscular Hemoglobin 31 pg (25-35) Mean Corpuscular Hemoglobin Concent 33 g/dL (31-37) Red Cell Distribution Width 14.2 % (11.5-14.5) Platelet Count 203 x10^3/uL (140-400) Neutrophils (%) (Auto) 69 % (31-73) Lymphocytes (%) (Auto) 13 % (24-48) Monocytes (%) (Auto) 14 % (0-9) Eosinophils (%) (Auto) 3 % (0-3) Basophils (%) (Auto) 1 % (0-3) Neutrophils # (Auto) 3.0 x10^3uL (1.8-7.7) Lymphocytes # (Auto) 0.6 x10^3/uL (1.0-4.8) Monocytes # (Auto) 0.6 x10^3/uL (0.0-1.1) Eosinophils # (Auto) 0.1 x10^3/uL (0.0-0.7) Basophils # (Auto) 0.0 x10^3/uL (0.0-0.2) Prothrombin Time 12.3 SEC (11.7-14.0) Prothromb Time International Ratio 1.0 (0.8-1.1) Activated Partial Thromboplast Time 31 SEC (24-38) Sodium Level 135 mmol/L (136-145) Potassium Level 3.7 mmol/L (3.5-5.1) Chloride Level 98 mmol/L (98-107) Carbon Dioxide Level 28 mmol/L (21-32) Anion Gap 9 (6-14) Blood Urea Nitrogen 13 mg/dL (7-20) Creatinine 1.0 mg/dL (0.6-1.0) Estimated GFR (Cockcroft-Gault) 55.6 Glucose Level 105 mg/dL (70-99) Calcium Level 9.6 mg/dL (8.5-10.1) Total Bilirubin 0.7 mg/dL (0.2-1.0) Direct Bilirubin 0.1 mg/dL (0.0-0.2) Aspartate Amino Transf (AST/SGOT) 30 U/L (15-37) Alanine Aminotransferase (ALT/SGPT) 20 U/L (14-59) Alkaline Phosphatase 109 U/L (46-116) Creatine Kinase 171 U/L (26-192) Creatine Kinase MB (Mass) 3.5 ng/mL (0.0-3.6) Creatine Kinase MB Relative Index 2.0 % (0-4) Troponin I Quantitative < 0.017 ng/mL (0.000-0.055) Total Protein 7.3 g/dL (6.4-8.2) Albumin 3.9 g/dL (3.4-5.0) Lipase 65 U/L (73-393) Laboratory Tests Test 08/27/16 12:53 08/27/16 13:05 Urine Collection Type Unknown Urine Color Yellow Urine Clarity Clear Urine pH 6.0 Urine Specific [place] >=1.030 Urine Protein Negative mg/dL (NEG-TRACE) Urine Glucose (UA) Negative mg/dL (NEG) Urine Ketones (Stick) Negative mg/dL (NEG) Urine Blood Negative (NEG) Urine Nitrite Negative (NEG) Urine Bilirubin Negative (NEG) Urine Urobilinogen Dipstick 0.2 mg/dL (0.2 mg/dL) Urine Leukocyte Esterase Negative (NEG) Urine RBC Rare /HPF (0-2) Urine WBC Rare /HPF (0-4) Urine Squamous Epithelial Cells Few /LPF Urine Bacteria 0 /HPF (0-FEW) White Blood Count 4.4 x10^3/uL (4.0-11.0) Red Blood Count 4.47 x10^6/uL (3.50-5.40) Hemoglobin 13.7 g/dL (12.0-15.5) Hematocrit 41.1 % (36.0-47.0) Mean Corpuscular Volume 92 fL (79-100) Mean Corpuscular Hemoglobin 31 pg (25-35) Mean Corpuscular Hemoglobin Concent 33 g/dL (31-37) Red Cell Distribution Width 14.2 % (11.5-14.5) Platelet Count 203 x10^3/uL (140-400) Neutrophils (%) (Auto) 69 % (31-73) Lymphocytes (%) (Auto) 13 % (24-48) Monocytes (%) (Auto) 14 % (0-9) Eosinophils (%) (Auto) 3 % (0-3) Basophils (%) (Auto) 1 % (0-3) Neutrophils # (Auto) 3.0 x10^3uL (1.8-7.7) Lymphocytes # (Auto) 0.6 x10^3/uL (1.0-4.8) Monocytes # (Auto) 0.6 x10^3/uL (0.0-1.1) Eosinophils # (Auto) 0.1 x10^3/uL (0.0-0.7) Basophils # (Auto) 0.0 x10^3/uL (0.0-0.2) Prothrombin Time 12.3 SEC (11.7-14.0) Prothromb Time International Ratio 1.0 (0.8-1.1) Activated Partial Thromboplast Time 31 SEC (24-38) Sodium Level 135 mmol/L (136-145) Potassium Level 3.7 mmol/L (3.5-5.1) Chloride Level 98 mmol/L (98-107) Carbon Dioxide Level 28 mmol/L (21-32) Anion Gap 9 (6-14) Blood Urea Nitrogen 13 mg/dL (7-20) Creatinine 1.0 mg/dL (0.6-1.0) Estimated GFR (Cockcroft-Gault) 55.6 Glucose Level 105 mg/dL (70-99) Calcium Level 9.6 mg/dL (8.5-10.1) Total Bilirubin 0.7 mg/dL (0.2-1.0) Direct Bilirubin 0.1 mg/dL (0.0-0.2) Aspartate Amino Transf (AST/SGOT) 30 U/L (15-37) Alanine Aminotransferase (ALT/SGPT) 20 U/L (14-59) Alkaline Phosphatase 109 U/L (46-116) Creatine Kinase 171 U/L (26-192) Creatine Kinase MB (Mass) 3.5 ng/mL (0.0-3.6) Creatine Kinase MB Relative Index 2.0 % (0-4) Troponin I Quantitative < 0.017 ng/mL (0.000-0.055) Total Protein 7.3 g/dL (6.4-8.2) Albumin 3.9 g/dL (3.4-5.0) Lipase 65 U/L (73-393) VTE Prophylaxis Ordered VTE Prophylaxis Devices: No VTE Pharmacological Prophylaxi: Yes Assessment/Plan Assessment/Plan abd pain, RUQ, 2/2 right flank shingles abdnormal US sound with bile duct and pancreatic duct dilation, post rodríguez h/o CVA with mild right side weakness PTSD h/o multiple abd sx plan: gi consult, may need ERCP? cont home meds dvt ppx PTOT labs tmr pain control addendum: when i saw pt in ER and talked to her, she was doing ABD US ON right side, so i didnot really look right flank , altho she has abd tenderness to me. Then floor nurse called me for the rash, which i hermelinda to see and she has obvious right flank shingles. will add valtrex. YARELI HANNA MD Aug 27, 2016 16:09
[2016-08-27] MEDS ORDERED: DOCUSATE SODIUM 100 MG CAPSULE. PO PRN (16:15)
[2016-08-27] MEDS ORDERED: hydrALAZINE 20 MG/ML VIAL. IVP PRN (16:15)
[2016-08-27] MEDS ORDERED: ACETAMINOPHEN 325 MG TABLET. PO PRN (16:15)
[2016-08-27 16:30] VITALS: BP 143/98
[2016-08-27] MEDS ORDERED: tiZANidine 4 MG TABLET. PO SCH (16:30)
[2016-08-27] MEDS: CLOPIDOGREL BISULFATE 75 MG TABLET PO SCH (19:12)
[2016-08-27] MEDS: valACYclovir 500 MG TABLET. PO SCH ×3 (19:12→20:17)
[2016-08-27] MEDS: ALPRAZolam 0.5 MG TABLET PO SCH ×2 (19:13→20:16)
[2016-08-27] MEDS: ENOXAPARIN 40 MG/0.4 ML SYRINGE. SQ SCH (19:15)
[2016-08-27] MEDS: MORPHINE SULFATE 2 MG/ML DISP.SYRIN. IV PRN ×2 (19:17→22:06)
[2016-08-27 19:56] VITALS: BP 132/60
[2016-08-27] MEDS: busPIRone 10 MG TABLET. PO SCH (20:15)
[2016-08-27] MEDS: CHOLECALCIFEROL (VITAMIN D3) 1,000 UNIT TABLET PO SCH (20:15)
[2016-08-27] MEDS: ZOLPIDEM 5 MG TABLET. PO PRN (22:05)
[2016-08-27] MEDS: ATORVASTATIN CALCIUM 40 MG TABLET. PO SCH (22:10)
[2016-08-27 23:55] VITALS: BP 135/80
[2016-08-28] VITALS (7 sets, daily range): BP systolic 82–134; BP diastolic 43–75
[2016-08-28] MEDS: MORPHINE SULFATE 2 MG/ML DISP.SYRIN. IV PRN ×3 (00:06→08:02)
[2016-08-28] MEDS: traMADol 50 MG TABLET PO PRN ×2 (00:06→17:04)
--- NOTE | 2016-08-28 01:04 | ACF ---
Admission Forms Criteria ABDOMINAL PAIN Clinical Indications for Admission to Inpatient Care (Place 'X' for any and all applicable criteria): Admission is indicated for ANY ONE of the following(1)(2)(3)(4)(5): [X]I. Inpatient admission required rather than observation care (Also use Abdominal Pain: Observation Care, as appropriate) because of ANY ONE of the following: [ ]a) Severe pain requiring acute inpatient management [X]b) Identification of etiology/finding that requires inpatient care (eg, aortic dissection, free air) [ ]c) Absent bowel sounds with complete ileus(6) [ ]d) Suspected toxic megacolon [ ]e) Severe electrolyte abnormalities requiring inpatient care [ ]f) High fever or infection requiring inpatient admission as indicated by ANY ONE of following(7)(8): [ ] i) Appropriate outpatient or observational care antimicrobial treatment unavailable, not effective, or not feasible [ ] ii) Documented bacteremia [ ] iii) Temperature > 104.9 degrees F (oral) [ ] iv) T >103.1 F (oral) or < 96.8 F(rectal) that does not respond to all emergency treatment measures [ ]g) Signs of intestinal obstruction [B] [ ]h) Hemodynamic instability [ ]i) IV fluid to replace significant ongoing losses (greater than 3 L/m2 per day) (12)(13) [ ]j) Percutaneous or open drainage (eg, abscess, biliary tract ) procedures [ ]k) Parenteral nutrition regimen that must be implemented on inpatient basis [ ]l) Other condition,treatment or monitoring requiring inpatient admission. [ ]II. Peritoneal signs present [ ]III. Surgery needed that cannot be performed on an ambulatory basis. [ ]IV. Evaluation requires patient to not eat or drink for extended period ( eg, more than 24 hours). [ ]V. Contraindications and/or Inappropriate clinical situations for Observational Care in patients with abdominal pain, when ANY ONE of the following is required: [ ]a) Thorough evaluation is required to prevent catastrophic events due to delays in diagnosing (e.g.Mesenteric ischemia) 1,3 [ ]b) Patient with severe pathology or with chronic symptoms unlikely to improve in the ED stay (3) [ ]. General contraindications and/or Inappropriate clinical situations for Observational Care in patients with abdominal pain, when ANY ONE of the following is required: [ ]a) Prediction of prolongation of LOS based on ANY ONE of the following may be considered as a contraindication for observational care 2, 3, 4, 5, 6, 7, 8, 9, 10, 11 [ ]i) Age > 65 yrs. [ ]ii) Patient arriving by ambulance [ ]iii) Patient with high acuity [ ]iv) Patient requiring vital sign monitoring [ ]v) Patient on IV medication [ ]b) Systolic blood pressures 180mmHg 3,12 [ ]c) Patient with altered mental status including delirium and other alteration of consciousness, (3) [ ]d) Patient whose discharge disposition will be to a care home home or rehabilitation home should not be managed in Emergency Department Observation Unit. CMS rule requires 3 days hospital stay before such placement.3,13 [ ]e) Patient with failure to thrive due to broad array of etiologies 3,16,17 [ ]f) Inability to ambulate 3,14 Extended stay beyond goal length of stay may be needed for(2)(3): [ ]a) Persistent abdominal pain with suspected intra-abdominal process [ ]b) Diagnosed condition requiring continued stay (e.g., pancreatitis, complicated diverticulitis) [ ]c) Surgery (e.g., colectomy) The original [facility] content created by [email or web address] has been revised. The portions of the content which have been revised are identified through the use of italic text or in bold, and [facility] has neither reviewed nor approved the modified material.All other unmodified content is copyright [employer] [facility] [employer]. Please see references footnoted in the original [employer] [facility] edition 2016 Admission Criteria Met?: Yes YOGI ATKINSON Aug 28, 2016 01:04
--- NOTE | 2016-08-28 06:11 | EKG ---
[facility] [address] [place] [address] Test Date: 2016-08-27 Test Time: 14:15:48 Pat Name: JONNA PRECIADO Department: Room: Gender: F [employer]: : 1950 Requested By: REINA BOJORQUEZ Order Number: [id number] Reading MD: Measurements Intervals [place] Rate: 64 P: -10 CT: 176 QRS: -25 QRSD: 90 T: -26 QT: 422 QTc: 440 Interpretive Statements SINUS RHYTHM LEFTWARD AXIS LOW LIMB LEAD VOLTAGE QRS(T) CONTOUR ABNORMALITY CONSIDER INFERIOR INFARCT T ABNORMALITY IN ANTEROSEPTAL LEADS RI6.01 Unconfirmed report Compared to ECG 03/07/2016 11:59:34 Left-axis deviation now present Myocardial infarct finding now present T-wave abnormality now present
[2016-08-28 06:24] LABS: BASO % 1 % (0-3); EOS % 3 % (0-3); HEMATOCRIT 39.5 % (36.0-47.0); HEMOGLOBIN 12.8 g/dL (12.0-15.5); LYMPH # 0.5 x10^3/uL (1.0-4.8); LYMPH % 12 % (24-48); MEAN CORPUSCULAR HEMOGLOBIN 30 pg (25-35); MEAN CORPUSCULAR HGB CONC 32 g/dL (31-37); MEAN CORPUSCULAR VOLUME 92 fL (79-100); MONO % 17 % (0-9); NEUT % 67 % (31-73); PLATELET COUNT 188 x10^3/uL (140-400); RED BLOOD COUNT 4.27 x10^6/uL (3.50-5.40); RED CELL DISTRIBUTION WIDTH 14.4 % (11.5-14.5); WHITE BLOOD COUNT 3.8 x10^3/uL (4.0-11.0)
[2016-08-28 06:51] LABS: ALBUMIN 3.4 g/dL (3.4-5.0); ALBUMIN/GLOBULIN RATIO 1.2 (1.0-1.7); CALCIUM 8.3 mg/dL (8.5-10.1); CREATININE 0.8 mg/dL (0.6-1.0); POTASSIUM 4.3 mmol/L (3.5-5.1); TOTAL BILIRUBIN 0.6 mg/dL (0.2-1.0); TOTAL PROTEIN 6.2 g/dL (6.4-8.2)
[2016-08-28] MEDS: DULoxetine HCL 30 MG CAPSULE.DR PO SCH (08:01)
[2016-08-28] MEDS: busPIRone 10 MG TABLET. PO SCH ×2 (08:01→20:45)
[2016-08-28] MEDS: CLOPIDOGREL BISULFATE 75 MG TABLET PO SCH (08:02)
[2016-08-28] MEDS: ALPRAZolam 0.5 MG TABLET PO SCH ×3 (08:02→20:44)
--- NOTE | 2016-08-28 08:52 | PDOC ---
PROGRESS NOTES Chief Complaint Chief Complaint Abd pain Shingles R flank ASSESSMENT AND PLAN: 1. Shingles: R flank rash. on valtrex 2. Pain control: switch IV morphine to percocet, titrate as needed 3. Abd pain: RUQ US with dilated bile and pancreatic ducts, but no lab abn or inflammatory markers. GI consult Hx multiple abd sx - on ultram at home 4. Hx CVA: residual R sided weakness; on plavix and lipitor 5. PTSD: continue mult psych meds 6. Prophylaxis: lovenox 7. Dispo: History of Present Illness History of Present Illness feels ok. shingles tolerable, concerned about CT findings Vitals Vitals Vital Signs Date Time Temp Pulse Resp B/P (MAP) Pulse Ox O2 Delivery O2 Flow Rate FiO2 08/28/16 08:02 98 Room Air 08/28/16 07:25 98.8 89 18 128/69 (88) 98.8 Physical Exam General: Alert, Cooperative, No acute distress Heart: Regular rate Lungs: Clear Abdomen: Normal bowel sounds, Other (mild gen TTP) Extremities: No clubbing, No edema Labs LABS Laboratory Tests Test 08/27/16 12:53 08/27/16 13:05 08/28/16 05:30 08/28/16 05:35 Urine Collection Type Unknown Urine Color Yellow Urine Clarity Clear Urine pH 6.0 Urine Specific [place] >=1.030 Urine Protein Negative mg/dL (NEG-TRACE) Urine Glucose (UA) Negative mg/dL (NEG) Urine Ketones (Stick) Negative mg/dL (NEG) Urine Blood Negative (NEG) Urine Nitrite Negative (NEG) Urine Bilirubin Negative (NEG) Urine Urobilinogen Dipstick 0.2 mg/dL (0.2 mg/dL) Urine Leukocyte Esterase Negative (NEG) Urine RBC Rare /HPF (0-2) Urine WBC Rare /HPF (0-4) Urine Squamous Epithelial Cells Few /LPF Urine Bacteria 0 /HPF (0-FEW) White Blood Count 4.4 x10^3/uL (4.0-11.0) 3.8 x10^3/uL (4.0-11.0) Red Blood Count 4.47 x10^6/uL (3.50-5.40) 4.27 x10^6/uL (3.50-5.40) Hemoglobin 13.7 g/dL (12.0-15.5) 12.8 g/dL (12.0-15.5) Hematocrit 41.1 % (36.0-47.0) 39.5 % (36.0-47.0) Mean Corpuscular Volume 92 fL (79-100) 92 fL (79-100) Mean Corpuscular Hemoglobin 31 pg (25-35) 30 pg (25-35) Mean Corpuscular Hemoglobin Concent 33 g/dL (31-37) 32 g/dL (31-37) Red Cell Distribution Width 14.2 % (11.5-14.5) 14.4 % (11.5-14.5) Platelet Count 203 x10^3/uL (140-400) 188 x10^3/uL (140-400) Neutrophils (%) (Auto) 69 % (31-73) 67 % (31-73) Lymphocytes (%) (Auto) 13 % (24-48) 12 % (24-48) Monocytes (%) (Auto) 14 % (0-9) 17 % (0-9) Eosinophils (%) (Auto) 3 % (0-3) 3 % (0-3) Basophils (%) (Auto) 1 % (0-3) 1 % (0-3) Neutrophils # (Auto) 3.0 x10^3uL (1.8-7.7) 2.5 x10^3uL (1.8-7.7) Lymphocytes # (Auto) 0.6 x10^3/uL (1.0-4.8) 0.5 x10^3/uL (1.0-4.8) Monocytes # (Auto) 0.6 x10^3/uL (0.0-1.1) 0.7 x10^3/uL (0.0-1.1) Eosinophils # (Auto) 0.1 x10^3/uL (0.0-0.7) 0.1 x10^3/uL (0.0-0.7) Basophils # (Auto) 0.0 x10^3/uL (0.0-0.2) 0.0 x10^3/uL (0.0-0.2) Prothrombin Time 12.3 SEC (11.7-14.0) Prothromb Time International Ratio 1.0 (0.8-1.1) Activated Partial Thromboplast Time 31 SEC (24-38) Sodium Level 135 mmol/L (136-145) 142 mmol/L (136-145) Potassium Level 3.7 mmol/L (3.5-5.1) 4.3 mmol/L (3.5-5.1) Chloride Level 98 mmol/L (98-107) 106 mmol/L (98-107) Carbon Dioxide Level 28 mmol/L (21-32) 26 mmol/L (21-32) Anion Gap 9 (6-14) 10 (6-14) Blood Urea Nitrogen 13 mg/dL (7-20) 11 mg/dL (7-20) Creatinine 1.0 mg/dL (0.6-1.0) 0.8 mg/dL (0.6-1.0) Estimated GFR (Cockcroft-Gault) 55.6 72.0 Glucose Level 105 mg/dL (70-99) 98 mg/dL (70-99) Calcium Level 9.6 mg/dL (8.5-10.1) 8.3 mg/dL (8.5-10.1) Total Bilirubin 0.7 mg/dL (0.2-1.0) 0.6 mg/dL (0.2-1.0) Direct Bilirubin 0.1 mg/dL (0.0-0.2) Aspartate Amino Transf (AST/SGOT) 30 U/L (15-37) 31 U/L (15-37) Alanine Aminotransferase (ALT/SGPT) 20 U/L (14-59) 22 U/L (14-59) Alkaline Phosphatase 109 U/L (46-116) 97 U/L (46-116) Creatine Kinase 171 U/L (26-192) Creatine Kinase MB (Mass) 3.5 ng/mL (0.0-3.6) Creatine Kinase MB Relative Index 2.0 % (0-4) Troponin I Quantitative < 0.017 ng/mL (0.000-0.055) Total Protein 7.3 g/dL (6.4-8.2) 6.2 g/dL (6.4-8.2) Albumin 3.9 g/dL (3.4-5.0) 3.4 g/dL (3.4-5.0) Lipase 65 U/L (73-393) BUN/Creatinine Ratio 14 (6-20) Albumin/Globulin Ratio 1.2 (1.0-1.7) DARRELL LOPEZ MD Aug 28, 2016 08:52
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
[2016-08-28] MEDS: oxyCODONE/APAP 5/325 1 TAB TABLET PO PRN ×2 (10:42→20:44)
[2016-08-28] MEDS: PANTOPRAZOLE 40 MG TABLET.DR. PO SCH (10:42)
[2016-08-28] MEDS: diphenhydrAMINE HCL 25 MG CAPSULE PO PRN ×2 (13:07→22:20)
[2016-08-28] MEDS: valACYclovir 500 MG TABLET. PO SCH ×2 (13:07→20:44)
[2016-08-28] MEDS ORDERED: IV NORMAL SALINE 1000ML BAG 1,000 ML IV ONE (16:00)
[2016-08-28] MEDS: ENOXAPARIN 40 MG/0.4 ML SYRINGE. SQ SCH (16:58)
[2016-08-28] MEDS: ATORVASTATIN CALCIUM 40 MG TABLET. PO SCH (20:44)
[2016-08-28] MEDS: CHOLECALCIFEROL (VITAMIN D3) 1,000 UNIT TABLET PO SCH (20:44)
[2016-08-28] MEDS: ZOLPIDEM 5 MG TABLET. PO PRN (23:34)
[2016-08-29] MEDS: oxyCODONE/APAP 5/325 1 TAB TABLET PO PRN ×4 (02:07→21:40)
[2016-08-29] MEDS: diphenhydrAMINE HCL 25 MG CAPSULE PO PRN (02:07)
[2016-08-29 07:00] VITALS: BP 138/80
[2016-08-29] MEDS ORDERED: IV RINGERS,LACTATED 1000ML 1,000 ML IV SCH ×2 (07:00→13:15)
[2016-08-29] MEDS: DULoxetine HCL 30 MG CAPSULE.DR PO SCH (07:54)
[2016-08-29] MEDS: busPIRone 10 MG TABLET. PO SCH ×2 (07:55→21:42)
[2016-08-29] MEDS: valACYclovir 500 MG TABLET. PO SCH ×3 (07:55→21:40)
[2016-08-29] MEDS: PANTOPRAZOLE 40 MG TABLET.DR. PO SCH (07:55)
[2016-08-29] MEDS: ALPRAZolam 0.5 MG TABLET PO SCH ×3 (07:55→21:40)
[2016-08-29] MEDS: CLOPIDOGREL BISULFATE 75 MG TABLET PO SCH (07:55)
--- NOTE | 2016-08-29 10:20 | RAD ---
INDICATION:dilated panc duct, abd pain COMPARISON: Ultrasound 08/27/2016 FINDINGS: Multiplanar, multisequence MRI images were obtained through the abdomen without intravenous contrast. Additionally three-dimensional MRCP images obtained. Trace right pleural effusion. Abdominal aorta does not appear aneurysmal. T2 hyperintense lesion right lobe of liver measuring approximately 60 x 44 mm. T2 hyperintense lesion at superior aspect of spleen measured approximately 12 mm. T2 hyperintense lesion inferior aspect of liver, 11 mm. No hydronephrosis bilaterally. No peripancreatic edema. Common bile duct measures approximately 12 mm. No definite filling defect seen within. There are numerous tiny T2 hyperintense lesions within the liver. IMPRESSION: Dilation of the common bile duct is again seen with smooth tapering seen distally near the ampulla. Could be secondary to physiologic changes status post cholecystectomy but a region of narrowing at the ampulla is not excluded on this exam. No definite distal common bile duct stone is seen. Numerous T2 hyperintense lesions are seen throughout the liver as well as T2 hyperintense lesion of spleen. Most common cause would be cyst or hemangioma. The largest liver lesion have the appearance of cyst on ultrasound. Filling defect within the duodenum proximal to the ampulla. Could be secondary to intraluminal ingested material but cannot exclude a lesion within the area.
[2016-08-29 11:00] VITALS: BP 129/70
[2016-08-29] MEDS: traMADol 50 MG TABLET PO PRN (11:46)
--- NOTE | 2016-08-29 12:27 | PDOC ---
PROGRESS NOTES Chief Complaint Chief Complaint Abd pain Shingles R flank ASSESSMENT AND PLAN: 1. Shingles: R flank rash. on valtrex. add neurontin for pain control 2. Pain control: switch IV morphine to percocet, titrate as needed 3. Abd pain: RUQ US with dilated bile and pancreatic ducts, but no lab abn or inflammatory markers. GI consult appreciated: EGD, MRCP, CA19.9 Hx multiple abd sx - on ultram at home; hx gastric bypass 4. Hx CVA: residual R sided weakness; on plavix and lipitor 5. PTSD: continue mult psych meds 6. Prophylaxis: lovenox History of Present Illness History of Present Illness feeling ok, shingles bothering her more, pain wrapping around further Vitals Vitals Vital Signs Date Time Temp Pulse Resp B/P (MAP) Pulse Ox O2 Delivery O2 Flow Rate FiO2 08/29/16 11:46 96 Room Air 08/29/16 11:00 98.0 83 18 129/70 (89) 98.0 Physical Exam General: Alert, Cooperative, No acute distress Heart: Regular rate Lungs: Clear Abdomen: Normal bowel sounds, Other (mild gen TTP) Extremities: No clubbing, No edema DARRELL LOPEZ MD Aug 29, 2016 12:27
[2016-08-29] MEDS ORDERED: LIDOCAINE 2% PF Vial for OR 5 ML VIAL. ONE (13:19)
[2016-08-29] MEDS ORDERED: PROPOFOL 20 ML IV ONE (13:19)
--- NOTE | 2016-08-29 13:40 | PDOC4 ---
PROCEDURE Procedure EGD Ind: RUQ pain Meds: per anesthesia Findings: E--normal. GEJ at 39cm. G--S/p partitioning; unable to get to antrum, though sizable proximal pouch unlike current Mecca-en-Y's. Side to side gastroenterostomy in body of stomach with one blind end and probable mecca limb. Small erosion, proximal stomach. D--mecca limb examined to length of scope and no abnormalities seen. Never any bile seen, so never to anastomosis. Dinah. well. IMP: Post-surgical anatomy, otherwise unremarkable exam. Gastric erosion unlikely to be source of any symptoms. REC: Treat shingles, any musculoskeletal component. Observe. --MRCP was OK re; biliary/pancreatic system. No further w/u needed here other than await CA 19-9. SUSAN SPAIN MD Aug 29, 2016 13:40
[2016-08-29 14:53] VITALS: BP 116/73
[2016-08-29] MEDS: ENOXAPARIN 40 MG/0.4 ML SYRINGE. SQ SCH (16:09)
[2016-08-29 19:50] VITALS: BP 129/70
[2016-08-29] MEDS ORDERED: GABAPENTIN 300 MG CAPSULE. PO ONE (21:00)
[2016-08-29] MEDS: ZOLPIDEM 5 MG TABLET. PO PRN (21:41)
[2016-08-29] MEDS: ATORVASTATIN CALCIUM 40 MG TABLET. PO SCH (21:41)
[2016-08-29] MEDS: CHOLECALCIFEROL (VITAMIN D3) 1,000 UNIT TABLET PO SCH (21:42)
[2016-08-29] MEDS ORDERED: PHENAZOPYRIDINE 200 MG TABLET. PO PRN (21:45)
[2016-08-29 23:00] VITALS: BP 119/69
[2016-08-30 03:00] VITALS: BP 137/63
[2016-08-30] MEDS: oxyCODONE/APAP 5/325 1 TAB TABLET PO PRN ×2 (04:09→08:36)
[2016-08-30 07:00] VITALS: BP 130/84
[2016-08-30] MEDS: DULoxetine HCL 30 MG CAPSULE.DR PO SCH (08:35)
[2016-08-30] MEDS: CLOPIDOGREL BISULFATE 75 MG TABLET PO SCH (08:35)
[2016-08-30] MEDS: valACYclovir 500 MG TABLET. PO SCH (08:35)
[2016-08-30] MEDS: busPIRone 10 MG TABLET. PO SCH (08:35)
[2016-08-30] MEDS: ALPRAZolam 0.5 MG TABLET PO SCH (08:36)
[2016-08-30] MEDS ORDERED: GABAPENTIN 100 MG CAPSULE. PO SCH (09:00)
--- NOTE | 2016-08-30 10:22 | PDOC ---
G I PROGRESS NOTE Reason for Follow-up Abdominal pain Subjective Other than pain from shingles, no real complaints. Physical Exam Lungs clear. RRR Abdomen soft, not tender nor distended (apart from zoster). Review of Relevant I have reviewed the following items rudy (where applicable) has been applied. Medications Current Medications Morphine Sulfate 2 mg PRN Q15MIN PRN IV/SQ PAIN GREATER THAN 3/10 Last administered on 08/27/16 14:12; Start 08/27/16 at 13:30; Stop 08/27/16 at 16:09 ; Status DC Sodium Chloride 1,000 ml @ 1,000 mls/hr Q1H IV Last administered on 08/27/16 14:12; Start 08/27/16 at 13:21; Stop 08/27/16 at 14:20; Status DC Ondansetron HCl (Zofran) 4 mg 1X ONCE IV Last administered on 08/27/16 14:13 ; Start 08/27/16 at 13:30; Stop 08/27/16 at 13:31; Status DC Ondansetron HCl (Zofran) 4 mg PRN Q8HRS PRN IV NAUSEA/VOMITING; Start 08/27/16 at 14:45; Stop 08/27/16 at 16:09; Status DC Morphine Sulfate 2 mg PRN Q2HR PRN IV PAIN; Start 08/27/16 at 14:45; Stop 08/27 at 16:09; Status DC Alprazolam (Xanax) 0.5 mg TID PO Last administered on 08/30/16 08:36; Start at 16:30 Buspirone HCl (Buspar) 10 mg BID PO Last administered on 08/30/16 08:35; Start 08/27/16 at 21:00 Vitamin D (Vitamin D3) 2,000 unit HS PO Last administered on 08/29/16 21:42; Start 08/27/16 at 21:00 Clopidogrel Bisulfate (Plavix) 75 mg DAILY PO Last administered on 08/30/16 08 :35; Start 08/27/16 at 16:30 Tizanidine HCl (Zanaflex) 4 mg Q8HRS PO ; Start 08/27/16 at 16:30; Stop at 19:07; Status DC Atorvastatin Calcium (Lipitor) 80 mg QHS PO Last administered on 08/29/16 21: 41; Start 08/27/16 at 21:00 Duloxetine HCl (Cymbalta) 60 mg DAILY PO Last administered on 08/30/16 08:35; Start 08/28/16 at 09:00 Zolpidem Tartrate (Ambien) 5 mg PRN QHS PRN PO INSOMNIA, MAY REPEAT X1 Last administered on 08/29/16 21:41; Start 08/27/16 at 16:15 Acetaminophen (Tylenol) 650 mg PRN Q6HRS PRN PO FEVER; Start 08/27/16 at 16:15 Ondansetron HCl (Zofran) 4 mg PRN Q6HRS PRN IV NAUSEA/VOMITING; Start 08/27/16 at 16:15 Morphine Sulfate 2 mg PRN Q2HR PRN IV PAIN Last administered on 08/28/16 08:02 ; Start 08/27/16 at 16:15; Stop 08/28/16 at 08:49; Status DC Tramadol HCl (Ultram) 50 mg PRN Q6HRS PRN PO MILD PAIN Last administered on 11:46; Start 08/27/16 at 16:15 Hydralazine HCl (Apresoline) 10 mg PRN Q4HRS PRN IVP ELEVATED BP, SEE COMMENTS ; Start 08/27/16 at 16:15 Docusate Sodium (Colace) 100 mg PRN DAILY PRN PO CONSTIPATION; Start 08/27/16 at 16:15 Enoxaparin Sodium (Lovenox 40mg Syringe) 40 mg Q24H SQ Last administered on 16:09; Start 08/27/16 at 17:00 Valacyclovir HCl (Valtrex) 1,000 mg TID PO Last administered on 08/30/16 08:35 ; Start 08/27/16 at 17:00 Oxycodone/ Acetaminophen (Percocet 5/325) 1 tab PRN Q4HRS PRN PO MODERATE- SEVERE PAIN Last administered on 08/30/16 08:36; Start 08/28/16 at 09:00 Pantoprazole Sodium (Protonix) 40 mg DAILYAC PO Last administered on 08/29/16 07:55; Start 08/28/16 at 11:30; Stop 08/29/16 at 13:41; Status DC Diphenhydramine HCl (Benadryl) 25 mg PRN Q4HRS PRN PO ITCHING Last administered on 08/29/16 02:07; Start 08/28/16 at 12:45 Sodium Chloride 1,000 ml @ 1,000 mls/hr 1X ONCE IV Last administered on 15:35; Start 08/28/16 at 16:00; Stop 08/28/16 at 16:59; Status DC Ringer's Solution 1,000 ml @ 50 mls/hr Q20H IV Last administered on 08/29/16 07:00; Start 08/29/16 at 07:00; Stop 08/29/16 at 18:59; Status DC Ringer's Solution 1,000 ml @ 75 mls/hr [id number] IV ; Start 08/29/16 at 13:15; Stop 08/29/16 at 23:49; Status DC Propofol 20 ml @ As Directed STK-MED ONCE IV ; Start 08/29/16 at 13:19; Stop at 13:20; Status DC Lidocaine HCl (Lidocaine Pf 2% Vial) 5 ml STK-MED ONCE .ROUTE ; Start 08/29/16 at 13:19; Stop 08/29/16 at 13:20; Status DC Gabapentin (Neurontin) 300 mg 1X ONCE PO Last administered on 08/29/16 21:40 ; Start 08/29/16 at 21:00; Stop 08/29/16 at 21:01; Status DC Gabapentin (Neurontin) 100 mg TID PO Last administered on 08/30/16 08:35; Start 08/30/16 at 09:00 Ceftriaxone Sodium 1 gm/ Sodium Chloride 50 ml @ 100 mls/hr Q24H IV Last administered on 08/29/16 22:26; Start 08/29/16 at 22:00 Phenazopyridine HCl (Pyridium) 200 mg PRN TID PRN PO URINARY PAIN; Start at 21:45 Active Scripts Active Reported Tizanidine Hcl 4 Mg Tablet 1 Tab PO Q8HRS Vitamin D3 (Cholecalciferol (Vitamin D3)) 1,000 Unit Tablet 2,000 Unit PO HS Xanax (Alprazolam) 0.5 Mg Tablet 1 Tab PO TID Tramadol Hcl 50 Mg Tablet 50 Mg PO Q8HRS PRN Multivitamins (Multivitamin) 1 Each Tablet 1 Each PO Calcium + D3 Er Tablet (Calcium Carb & Cit/Vitamin D3) 1 Each Tablet.er 1 Each PO Atorvastatin Calcium 80 Mg Tablet 75 Mg PO HS Zolpidem Tartrate 10 Mg Tablet 10 Mg PO PRN QHS PRN Plavix (Clopidogrel Bisulfate) 75 Mg Tablet 75 Mg PO DAILY Buspirone Hcl 10 Mg Tablet 10 Mg PO BID Cymbalta (Duloxetine Hcl) 60 Mg Capsule.dr 60 Mg PO DAILY Vitals/I & O Vital Sign - Last 24 Hours 08/29/16 08/29/16 08/29/16 08/29/16 11:00 11:46 12:58 13:00 Temp 98.0 98.1 98.0 98.1 Pulse 83 70 Resp 18 18 B/P (MAP) 129/70 (89) Pulse Ox 96 96 96 O2 Delivery Room Air Room Air Room Air 08/29/16 08/29/16 08/29/16 08/29/16 13:36 13:50 14:08 14:53 Temp 97.2 98.0 97.2 98.0 Pulse 75 69 81 69 Resp 16 20 20 18 B/P (MAP) 92/52 92/53 133/69 116/73 (87) Pulse Ox 94 93 92 99 O2 Delivery Room Air Room Air Room Air Room Air 08/29/16 08/29/16 08/29/16 08/29/16 16:07 18:45 19:50 20:00 Temp 98.0 98.0 Pulse 69 B/P (MAP) 129/70 (89) Pulse Ox 99 95 O2 Delivery Room Air Room Air Room Air Room Air 08/29/16 08/29/16 08/30/16 08/30/16 21:40 23:00 03:00 04:09 Temp 98.0 97.9 98.0 97.9 Pulse 69 63 Resp 20 18 18 20 B/P (MAP) 119/69 (86) 137/63 (87) Pulse Ox 97 95 96 96 O2 Delivery Room Air Room Air Room Air Room Air 08/30/16 08/30/16 08/30/16 05:11 07:00 08:36 Temp 98.0 98.0 Pulse 78 Resp 18 18 16 B/P (MAP) 130/84 (99) Pulse Ox 96 99 99 O2 Delivery Room Air Room Air Intake and Output 08/29/16 08/29/16 08/30/16 15:00 23:00 07:00 Intake Total 300 ml 350 ml 450 ml Output Total 600 ml 350 ml Balance 300 ml -250 ml 100 ml Problem List Problems Medical Problems: (1) Abdominal pain Status: Acute Assessment Bulk of abdominal issues seem to be the zoster. Plan of Care: Continue current Tx, Mgmt Plan of Care Note OK with us to dismiss at your discretion. Can f/u with us prn. SUSAN SPAIN MD Aug 30, 2016 10:22
[2016-08-30 11:00] VITALS: BP 110/60
[2016-08-30] MEDS ORDERED: OXYC1TAB7 PO (11:39)
[2016-08-30] MEDS ORDERED: VALA500T PO (11:39)
[2016-08-30] MEDS ORDERED: DIPH25CA58 PO (11:39)
[2016-08-30] MEDS ORDERED: PHEN-444 PO (11:39)
[2016-08-30] MEDS ORDERED: GABA-585 PO (11:39)
--- NOTE | 2016-08-31 00:07 | DS ---
DATE OF DISCHARGE: 08/30/2016 CHIEF COMPLAINT: Abdominal pain. HOSPITAL COURSE: The patient is a 65-year-old woman with past medical history of gastric bypass as well as ortho issues, who presented to the Emergency Room with right upper quadrant pain for 3 days. She relates that this essentially started several days prior with low p.o. intake, nausea, but no vomiting. The pain was fairly severe at 8/10 and radiating to her back. She was seen by her PCP with an abdominal CT, which showed a questionable renal mass and she was referred to the Emergency Room. Her symptoms here were brought under control fairly quickly with bowel rest, IV narcotics and IV fluids. GI consult was obtained and the patient was taken to EGD, which did not reveal any significant findings. An MRCP was obtained as well to rule out any pancreatic or biliary issues as a CT showed mild ductal dilation both the common biliary as well as pancreatic duct. A CA-19-9 was found normal as well. When the patient was examined by hospitalist, she was found with fairly extensive lumbar shingles. Valtrex was started as well as Neurontin and Percocet for pain control. She was discharged on all three medications. The patient had been diagnosed recently with UTI. She had not completed her antibiotic course. She was given a dose of ceftriaxone as well as phenazopyridine for symptoms. She was advised to continue her antibiotic regimen upon return to home. DISCHARGE DATE: 08/30/2016. DISCHARGE DIAGNOSES: Abdominal pain, shingles. DISCHARGE DISPOSITION: To home. DISCHARGE CONDITION: Improved. DISCHARGE MEDICATIONS: Please refer to MAR. DISCHARGE INSTRUCTIONS: The patient will follow up with PCP within the next week. DARRELL LOPEZ MD DR: UR/nts JOB#: [id number] / [id number] MAXIMILIAN
== END 2016-08-30 14:12 | disposition home or self-care (01) ==
LOC: ER 12:46 → 6 SOUTH 14:10
PROVIDERS: ADMIT Internal Medicine; ATTEND Internal Medicine
DX: R10.11 Right upper quadrant pain (principal); R10.13 Epigastric pain; B02.9 Zoster without complications; I25.2 Old myocardial infarction; M19.90 Unspecified osteoarthritis, unspecified site; F32.9 Major depressive disorder, single episode, unspecified; F41.9 Anxiety disorder, unspecified; F43.10 Post-traumatic stress disorder, unspecified; E78.5 Hyperlipidemia, unspecified; K76.89 Other specified diseases of liver; K86.89 Other specified diseases of pancreas; Z87.891 Personal history of nicotine dependence; Z96.659 Presence of unspecified artificial knee joint; Z98.84 Bariatric surgery status; Z86.73 Personal history of transient ischemic attack (TIA), and cerebral infarction without residual deficits; Z82.49 Family history of ischemic heart disease and other diseases of the circulatory system
CPT/HCPCS: 36415; 43235; 74181; 76700; 80048; 80053; 80076; 81001; 82553; 83690; 84484; 85027; 85610; 85730; 86301; 93005; 96365; 96372; 96375; 96376; 97161; 97165; G0378; G8987; G8988; G8989; J0696; J1650; J2001; J2270; J2405; J2704; J7030; Q0163; G0379; J7120

== ENCOUNTER → 2016-10-22 | Outpatient (CLI) | payer MEDICARE ==
[~2016-10-22] MED LIST changes: +DIPH25CA58 PO; +GABA-585 PO; +GADOBUTROL 10 MMOL/10 ML VIAL IV ONE; +KRIL1CAP10 PO; -KRIL1CAP11 PO; +OXYC1TAB7 PO; +PHEN-444 PO; +VALA500T PO
--- NOTE | 2016-10-22 15:08 | KCIC ---
INDICATION: Chronic low back pain. Surgery in 1984. TECHNIQUE: Sagittal T1, sagittal T2, sagittal STIR, sagittal postcontrast, axial T1, axial T2, and axial postcontrast sequences are provided. 8 mL of intravenous Gadavist was administered without complication. No comparison is available. FINDINGS: There is 11 mm of anterolisthesis at L4-L5 and 4 mm of retrolisthesis at L5-S1. There is no worrisome marrow lesion. There is disc desiccation diffusely. There is narrowing of the interspace at L4-L5 and L5-S1. The conus medullaris is normal in signal intensity and in position. Subcutaneous edema is noted. There is no pathologic enhancement. Probable hepatic cyst is partially included, see recent CT abdomen report. The numbering system assumes 5 lumbar type vertebral bodies. Findings by individual level are as follows: T12-L1: There is facet hypertrophy without canal or foraminal compromise. L1-L2: Mild disc bulge and facet hypertrophy are noted with minimal foraminal narrowing. L2-L3: There is a diffuse disc bulge. This is eccentric to the left. There is moderate facet hypertrophy and there is ligamentum flavum hypertrophy. There is mild canal stenosis with midline AP diameter of the thecal sac 10 mm. There is mild left lateral recess narrowing. There is [id number]-[id number] bilateral foraminal narrowing. L3-L4: There is a diffuse disc bulge. There is moderate facet and ligamentum flavum hypertrophy. There is mild canal stenosis with midline AP diameter of the thecal sac 9 mm. There is lateral recess narrowing, greater on the left. There is [id number]-[id number] bilateral foraminal narrowing. L4-L5: Anterolisthesis is noted at this level. There is minimal partial laminectomy on the left. There is mild canal stenosis secondary to the anterolisthesis. There is lateral recess narrowing bilaterally which is high-grade. There is facet hypertrophy which is greater on the left. There is mild to moderate left and mild right foraminal narrowing. Exiting nerve root on the left is compressed. L5-S1: Disc osteophyte complex and facet hypertrophy are noted without canal or foraminal compromise. There appears to be a right paracentral herniation migrating inferiorly displacing the right S1 nerve root. This has different signal characteristics than the adjacent disc and may be a sequestered fragment. IMPRESSION: 1. Degenerative disc disease and facet and ligamentum flavum hypertrophy are noted throughout the lumbar spine. Canal stenosis is greatest at L4-L5, even with previous partial laminectomy on the left at this level. There are several levels of lateral recess narrowing and foraminal narrowing, as described above. Electronically signed by: Vasquez Bach MD (10/22/2016 3:04 PM) [id number]
== END | disposition home or self-care (01) ==
LOC: KCIC MRI 12:27
PROVIDERS: ATTEND Nurse Practitioner Family
DX: M51.36 Other intervertebral disc degeneration, lumbar region (principal); M48.06 Spinal stenosis, lumbar region; G89.29 Other chronic pain
CPT/HCPCS: 72158; A9585

== ENCOUNTER → 2017-02-03 | Outpatient (CLI) | payer MEDICARE ==
[~2017-02-03] MED LIST changes: -GADOBUTROL 10 MMOL/10 ML VIAL IV ONE
--- NOTE | 2017-02-03 09:47 | KCIC ---
INDICATION: Stroke. New onset of stuttering. Unsteady gait. TECHNIQUE: Sagittal T1, axial T1, axial T2, axial FLAIR, axial T2 gradient, coronal T2, and diffusion imaging with ADC map was performed. No comparison is available at this institution. FINDINGS: Prominence of the ventricles and sulci is noted, appears to have a slight parietal lobe predominance. FLAIR hyperintensities in the supratentorial white matter and in the alok are not specific but most suggestive of mild small vessel ischemic disease. There is an old infarct of the body of the corpus callosum. There is no acute intracranial hemorrhage or extra-axial fluid collection. There is no mass effect or midline shift. There is no restricted diffusion to suggest an acute infarct. Intracranial flow voids are preserved. There is minimal ethmoid mucosal thickening. Orbital contents are unremarkable. IMPRESSION: 1. No acute intracranial findings. 2. Brain parenchymal volume loss with a parietal lobe predominance. 3. Probable small vessel ischemic disease. Electronically signed by: Vasquez Bach MD (02/03/2017 9:44 AM) [email or web address]
== END | disposition home or self-care (01) ==
LOC: KCIC MRI 08:45
PROVIDERS: ATTEND Psychiatry & Neurology Neurology with Special Qualifications in Child Neurology
DX: R26.81 Unsteadiness on feet (principal)
CPT/HCPCS: 70551

== ENCOUNTER → 2017-02-18 | Outpatient (CLI) | payer MEDICARE | END | disposition home or self-care (01) | LOC: KCIC MRI 13:34 | DX: M48.061 Spinal stenosis, lumbar region without neurogenic claudication (principal); M54.16 Radiculopathy, lumbar region; Z90.710 Acquired absence of both cervix and uterus; Z98.890 Other specified postprocedural states | CPT/HCPCS: 72148 ==

== ENCOUNTER → 2017-04-13 | Outpatient (CLI) | payer MEDICARE ==
[2017-04-13 10:50] LABS: ISTAT CREATININE 0.6 mg/dL (0.6-1.1)
[2017-04-13] MEDS: IOHEXOL 300 MG/ML 100ML VIAL. IV (10:51)
== END | disposition home or self-care (01) ==
LOC: KCIC CT 10:25
DX: K43.9 Ventral hernia without obstruction or gangrene (principal); K57.30 Diverticulosis of large intestine without perforation or abscess without bleeding; J84.10 Pulmonary fibrosis, unspecified; M47.899 Other spondylosis, site unspecified; K76.89 Other specified diseases of liver; Z90.49 Acquired absence of other specified parts of digestive tract; Z90.710 Acquired absence of both cervix and uterus; Z98.84 Bariatric surgery status
CPT/HCPCS: 74178; 82565; Q9967

== ENCOUNTER → 2017-04-27 | Outpatient (CLI) | payer MEDICARE ==
[2017-04-28 02:19] LABS: MRSA BY PCR Positive (Negative)
== END | disposition home or self-care (01) ==
LOC: SURGPAT 13:29
DX: Z01.818 Encounter for other preprocedural examination (principal); M43.16 Spondylolisthesis, lumbar region; M48.061 Spinal stenosis, lumbar region without neurogenic claudication; M54.16 Radiculopathy, lumbar region
CPT/HCPCS: 87641

== ENCOUNTER 2017-05-18 08:10 | Inpatient (IN) | payer MEDICARE ==
[~2017-05-18 08:10] MED LIST changes: -ALPR0.5T PO; -ALPR1TAB2 PO; -ALPR2TAB2 PO; -ATORVASTATIN CA80 MG PO; -BUSP10TA PO; -CA C1TAB66 PO; -CALC-77 PO; -CHOL-5 PO; -CHOL10003 PO; -CLOP75TA57 PO; -DIPH25CA58 PO; -DULO60CA6 PO; -GABA-585 PO; -GLUC1TAB69 PO; -KRIL1CAP10 PO; +LIDOCAINE 1% PF 2 ML VIAL. ID; -MULT1TAB52 PO; +ONDANSETRON PF 4 MG/2 ML VIAL. IV; -OXYC1TAB7 PO; -PHEN-444 PO; -TIZA4TAB PO; -TRAM50TA PO; -UBID200C7 PO; -VALA500T PO; -ZOLP10TA4 PO
[2017-05-18] MEDS ORDERED: VANCOMYCIN 1GM IVPB FOR OMNI 250 ML IV (08:15)
[2017-05-18 08:40] LABS: BILIRUBIN,URINE SMALL (NEG); CLARITY,URINE CLEAR; COLOR,URINE YELLOW; GLUCOSE,URINE NEGATIVE (NEG); NITRITE,URINE NEGATIVE (NEG); PH,URINE 5.5; PROTEIN,URINE NEGATIVE (NEG-TRACE); UROBILINOGEN,URINE 0.2 mg/dL (0.2 mg/dL)
[2017-05-18 08:48] LABS: SQUAMOUS EPITHELIAL CELL,UR MOD /LPF
[2017-05-18 08:49] LABS: BACTERIA,URINE FEW /HPF (0-FEW); RBC,URINE OCC /HPF (0-2)
[2017-05-18] MEDS ORDERED: PROPOFOL 100 ML IV (08:50)
[2017-05-18] MEDS: IV RINGERS,LACTATED 1000ML 1,000 ML IV ×2 (09:06→16:16)
[2017-05-18 09:39] LABS: INR 0.9 (0.8-1.1); PARTIAL THROMBOPLASTIN TIME 29 SEC (24-38)
[2017-05-18] MEDS ORDERED: DESFLURANE > 120 MINUTES IH (09:51)
[2017-05-18] MEDS ORDERED: PROPOFOL 20 ML IV (09:52)
[2017-05-18] MEDS ORDERED: PHENYLEPHRINE in 0.9% NACL PF 1 MG/10 ML SYRINGE. IV (09:52)
[2017-05-18] MEDS ORDERED: fentaNYL PF VIAL 100 MCG/2 ML VIAL (09:52)
[2017-05-18] MEDS ORDERED: ROCURONIUM 50 MG/5 ML VIAL. (09:52)
[2017-05-18] MEDS ORDERED: REMIFENTANIL 2 MG VIAL. IV (09:52)
[2017-05-18] MEDS ORDERED: MIDAZOLAM HCL/PF 2 MG/2 ML VIAL. (09:52)
[2017-05-18] MEDS ORDERED: DEXAMETHASONE SOD PHOS 20 MG/5 ML VIAL. (09:52)
[2017-05-18] MEDS ORDERED: ONDANSETRON PF 4 MG/2 ML VIAL. (09:53)
[2017-05-18] MEDS ORDERED: PHENYLEPHRINE 10 MG/ML VIAL. (09:55)
[2017-05-18] MEDS ORDERED: ePHEDrine PF IN SALINE 50 MG/5 ML DISP.SYRIN IV (11:33)
[2017-05-18] MEDS ORDERED: GLYCOPYRROLATE 1 MG/5 ML VIAL. (11:34)
[2017-05-18] MEDS ORDERED: NEOSTIGMINE METHYLSULFATE 5 MG/5 ML SYRINGE. (11:34)
[2017-05-18] MEDS: VANCOMYCIN 1GM IVPB FOR OMNI 250 ML IV (11:37)
[2017-05-18] MEDS: KETOROLAC 60 MG/2 ML INJ FOR OR. (12:15)
[2017-05-18] MEDS: GELATIN SPONGE SIZE 100. (12:15)
[2017-05-18] MEDS: THROMBIN TOPICAL 20,000 UNIT SPRAY.SYRN KIT TP (12:15)
[2017-05-18] MEDS: BUPIVAC MPF-EPI 0.5%-1:200000 30 ML VIAL. INJ (12:15)
[2017-05-18] MEDS: BACITRACIN 50,000 UNIT in IV NORMAL SALINE 1000ML BAG 1,000 ML IRR (12:15)
[2017-05-18] MEDS ORDERED: REMIFENTANIL 1 MG VIAL. IV (13:53)
[2017-05-18] MEDS ORDERED: PROPOFOL 50 ML IV (13:54)
[2017-05-18] MEDS ORDERED: diphenhydrAMINE 50 MG/ML VIAL IV (15:15)
[2017-05-18] MEDS ORDERED: traMADol 50 MG TABLET PO (15:15)
[2017-05-18] MEDS ORDERED: ONDANSETRON PF 4 MG/2 ML VIAL. IV (15:15)
[2017-05-18] MEDS ORDERED: NALOXONE 0.4 MG/ML VIAL. IV (15:15)
[2017-05-18] MEDS ORDERED: CALCIUM CARBONATE 500 MG TAB.CHEW PO (15:15)
[2017-05-18] MEDS ORDERED: diphenhydrAMINE HCL 25 MG CAPSULE PO ×2 (15:15)
[2017-05-18] MEDS ORDERED: fentaNYL PF VIAL 100 MCG/2 ML VIAL IV (15:15)
[2017-05-18] MEDS ORDERED: MAG HYDROX/ALUMINUM HYD/SIMETH 30 ML ORAL.SUSP PO (15:15)
[2017-05-18] MEDS ORDERED: 0.9 % SODIUM CHLORIDE 10 ML DISP.SYRIN. IV (15:15)
[2017-05-18] MEDS ORDERED: MAGNESIUM HYDROXIDE 2,400 MG/30 ML ORAL.SUSP. PO (15:15)
[2017-05-18] MEDS: fentaNYL PF VIAL 100 MCG/2 ML VIAL IV ×6 (16:22→21:50)
[2017-05-18] MEDS: MORPHINE SULFATE 4 MG/ML DISP.SYRIN. IV ×4 (16:26→16:59)
[2017-05-18] MEDS: PROCHLORPERAZINE 10 MG/2 ML VIAL. IV ×2 (16:26→16:31)
[2017-05-18] MEDS: POTASSIUM CL 20MEQ D5-0.45NACL 1,000 ML IV (18:34)
[2017-05-18] MEDS ORDERED: NON FORMULARY ITEM (Melatonin 10 MG) PO (21:00)
[2017-05-18] MEDS: ATORVASTATIN CALCIUM 40 MG TABLET. PO (21:45)
[2017-05-18] MEDS: DOCUSATE SODIUM 100 MG CAPSULE. PO (21:45)
[2017-05-18] MEDS: METHOCARBAMOL 750 MG TABLET PO (21:46)
[2017-05-18] MEDS: GABAPENTIN 300 MG CAPSULE. PO (21:46)
[2017-05-18] MEDS: ALPRAZolam 0.5 MG TABLET PO (21:46)
[2017-05-18] MEDS: valACYclovir 500 MG TABLET. PO (21:47)
[2017-05-18] MEDS: busPIRone 10 MG TABLET. PO (21:48)
[2017-05-18] MEDS: oxyCODONE/APAP 5/325 1 TAB TABLET PO (21:49)
[2017-05-19] MEDS: VANCOMYCIN 1 GM in IV DEXTROSE 5% 250 ML IV (00:04)
[2017-05-19] MEDS: oxyCODONE/APAP 5/325 1 TAB TABLET PO ×5 (04:10→18:33)
[2017-05-19] MEDS: POTASSIUM CL 20MEQ D5-0.45NACL 1,000 ML IV ×2 (08:31→21:40)
[2017-05-19] MEDS: MAGNESIUM OXIDE 400 MG TABLET PO (08:31)
[2017-05-19] MEDS: DOCUSATE SODIUM 100 MG CAPSULE. PO ×2 (08:49→21:35)
[2017-05-19] MEDS: DULoxetine HCL 30 MG CAPSULE.DR PO (08:49)
[2017-05-19] MEDS: ALPRAZolam 0.5 MG TABLET PO ×3 (08:49→21:36)
[2017-05-19] MEDS: ACETAMINOPHEN 325 MG TABLET. PO (08:49)
[2017-05-19] MEDS: LEVOTHYROXINE 75 MCG TABLET PO (08:49)
[2017-05-19] MEDS: busPIRone 10 MG TABLET. PO ×2 (08:49→21:36)
[2017-05-19] MEDS: METHOCARBAMOL 750 MG TABLET PO ×3 (08:49→21:35)
[2017-05-19] MEDS: valACYclovir 500 MG TABLET. PO ×3 (08:50→21:36)
[2017-05-19] MEDS: GABAPENTIN 300 MG CAPSULE. PO ×3 (08:50→21:36)
[2017-05-19] MEDS: OMEGA-3 FATTY ACIDS/FISH OIL 1,000 MG CAPSULE. PO (09:00)
[2017-05-19] MEDS: ATORVASTATIN CALCIUM 40 MG TABLET. PO (21:36)
[2017-05-20] MEDS: oxyCODONE/APAP 5/325 1 TAB TABLET PO ×4 (02:01→18:21)
[2017-05-20] MEDS: fentaNYL PF VIAL 100 MCG/2 ML VIAL IV (05:01)
[2017-05-20] MEDS: valACYclovir 500 MG TABLET. PO (07:28)
[2017-05-20] MEDS: GABAPENTIN 300 MG CAPSULE. PO ×3 (08:30→21:20)
[2017-05-20] MEDS: OMEGA-3 FATTY ACIDS/FISH OIL 1,000 MG CAPSULE. PO (08:31)
[2017-05-20] MEDS: METHOCARBAMOL 750 MG TABLET PO ×3 (08:31→21:20)
[2017-05-20] MEDS: ALPRAZolam 0.5 MG TABLET PO ×3 (08:31→21:20)
[2017-05-20] MEDS: DULoxetine HCL 30 MG CAPSULE.DR PO (08:31)
[2017-05-20] MEDS: busPIRone 10 MG TABLET. PO ×2 (08:31→21:20)
[2017-05-20] MEDS: MAGNESIUM OXIDE 400 MG TABLET PO (08:31)
[2017-05-20] MEDS: LEVOTHYROXINE 75 MCG TABLET PO (08:31)
[2017-05-20] MEDS: DOCUSATE SODIUM 100 MG CAPSULE. PO ×2 (08:31→21:20)
[2017-05-20] MEDS: POTASSIUM CL 20MEQ D5-0.45NACL 1,000 ML IV (08:35)
[2017-05-20 10:57] LABS: ADD MAN DIFF? NO
[2017-05-20 11:03] LABS: BASO % 1 % (0-3); EOS # 0.2 x10^3/uL (0.0-0.7); EOS % 3 % (0-3); HEMATOCRIT 31.5 % (36.0-47.0); HEMOGLOBIN 10.4 g/dL (12.0-15.5); LYMPH # 0.9 x10^3/uL (1.0-4.8); LYMPH % 11 % (24-48); MEAN CORPUSCULAR HEMOGLOBIN 30 pg (25-35); MEAN CORPUSCULAR HGB CONC 33 g/dL (31-37); MEAN CORPUSCULAR VOLUME 91 fL (79-100); MONO # 0.8 x10^3/uL (0.0-1.1); MONO % 10 % (0-9); NEUT # 6.1 x10^3uL (1.8-7.7); NEUT % 75 % (31-73); PLATELET COUNT 213 x10^3/uL (140-400); RED BLOOD COUNT 3.48 x10^6/uL (3.50-5.40); RED CELL DISTRIBUTION WIDTH 15.6 % (11.5-14.5); WHITE BLOOD COUNT 8.2 x10^3/uL (4.0-11.0)
[2017-05-20 11:11] LABS: ANION GAP 6 (6-14); BLOOD UREA NITROGEN 15 mg/dL (7-20); CALCIUM 8.4 mg/dL (8.5-10.1); CARBON DIOXIDE 28 mmol/L (21-32); CHLORIDE 107 mmol/L (98-107); GFR 55.5; GLUCOSE 109 mg/dL (70-99); POTASSIUM 3.7 mmol/L (3.5-5.1); SODIUM 141 mmol/L (136-145)
[2017-05-20] MEDS: FERROUS SULFATE 325 MG TABLET. PO (18:00)
[2017-05-20] MEDS: ATORVASTATIN CALCIUM 40 MG TABLET. PO (21:20)
[2017-05-21] MEDS: oxyCODONE/APAP 5/325 1 TAB TABLET PO ×3 (04:13→11:31)
[2017-05-21] MEDS: LEVOTHYROXINE 75 MCG TABLET PO (07:17)
[2017-05-21] MEDS: FERROUS SULFATE 325 MG TABLET. PO (10:30)
[2017-05-21] MEDS: GABAPENTIN 300 MG CAPSULE. PO (10:30)
[2017-05-21] MEDS: METHOCARBAMOL 750 MG TABLET PO (10:30)
[2017-05-21] MEDS: DOCUSATE SODIUM 100 MG CAPSULE. PO (10:30)
[2017-05-21] MEDS: OMEGA-3 FATTY ACIDS/FISH OIL 1,000 MG CAPSULE. PO (10:30)
[2017-05-21] MEDS: ALPRAZolam 0.5 MG TABLET PO (10:30)
[2017-05-21] MEDS: busPIRone 10 MG TABLET. PO (10:30)
[2017-05-21] MEDS: DULoxetine HCL 30 MG CAPSULE.DR PO (10:30)
[2017-05-21] MEDS: MAGNESIUM HYDROXIDE 2,400 MG/30 ML ORAL.SUSP. PO (10:31)
[2017-05-21] MEDS: CLOPIDOGREL BISULFATE 75 MG TABLET PO (10:32)
[2017-05-21] MEDS: MAGNESIUM OXIDE 400 MG TABLET PO (10:38)
== END 2017-05-21 11:30 | DRG 460 ==
LOC: OPSVCIP 08:10 → 4 NORTH 18:01
PROC: 0QB00ZZ Excision of Lumbar Vertebra, Open Approach (ICD-10-PCS; principal; 2017-05-18 11:07)
PROC: 0SG0071 Fusion of Lumbar Vertebral Joint with Autologous Tissue Substitute, Posterior Approach, Posterior Column, Open Approach (ICD-10-PCS; 2017-05-18 11:07)
PROC: 4A10X4G Monitoring of Central Nervous Electrical Activity, Intraoperative, External Approach (ICD-10-PCS; 2017-05-18 11:07)
DX: M48.061 Spinal stenosis, lumbar region without neurogenic claudication (principal); I10 Essential (primary) hypertension; M43.16 Spondylolisthesis, lumbar region; M54.16 Radiculopathy, lumbar region; Z96.611 Presence of right artificial shoulder joint; M19.90 Unspecified osteoarthritis, unspecified site; M81.0 Age-related osteoporosis without current pathological fracture; Z60.2 Problems related to living alone; Z82.49 Family history of ischemic heart disease and other diseases of the circulatory system; Z83.3 Family history of diabetes mellitus; Z86.14 Personal history of Methicillin resistant Staphylococcus aureus infection; Z86.73 Personal history of transient ischemic attack (TIA), and cerebral infarction without residual deficits; Z90.710 Acquired absence of both cervix and uterus; Z98.84 Bariatric surgery status; I25.2 Old myocardial infarction; Z90.49 Acquired absence of other specified parts of digestive tract; Z88.8 Allergy status to other drugs, medicaments and biological substances
CPT/HCPCS: 36415; 72131; 76000; 80048; 81001; 85025; 85610; 85730; 86850; 86900; 86901; 88304; 88311; 97110-GP; 97116-GP; 97161-GP; 97166-GO; 97535-GO; C1713; J0690; J0780; J1100; J1885; J2250; J2270; J2370; J2405; J2704; J2710; J3010; J3370; J3490; J7030; J7120

== ENCOUNTER → 2018-05-31 | Outpatient (CLI) | payer MEDICARE ==
[2017-05-21 11:00] VITALS: BP 102/52
[~2018-05-31] MED LIST changes: +ALPR0.5T PO; +ALPR1TAB2 PO; +ALPR2TAB2 PO; +ATOR20TA58 PO; +ATORVASTATIN CA80 MG PO; +BUSP10TA PO; +CA C1TAB66 PO; +CALC-77 PO; +CHOL-5 PO; +CHOL10003 PO; +CLOP75TA57 PO; +DIPH25CA58 PO; +DULO60CA6 PO; +GABA-585 PO; +GABA600T7 PO; +GLUC1TAB69 PO; +HYDR-2761 PO; +IBUP-1060 PO; +KRIL1CAP10 PO; +KRIL1CAP29 PO; +LEVO50TA5 PO; +LEVO75TA5 PO; -LIDOCAINE 1% PF 2 ML VIAL. ID; +MAGN100T3 PO; +MAGN400T3 PO; +MELA3TAB2 PO; +METH-38 PO; +MULT1TAB52 PO; +OMEG1CAP27 PO; -ONDANSETRON PF 4 MG/2 ML VIAL. IV; +OXYC1TAB7 PO; +PHEN-444 PO; +TIZA4TAB PO; +TRAM50TA PO; +TURM538C PO; +UBID200C7 PO; +UBID50TA PO; +VALA500T PO; +WARF-78 PO; +ZOLP10TA4 PO
[2018-05-31 09:57] LABS: BASO # 0.1 x10^3/uL (0.0-0.2); BASO % 1 % (0-3); EOS # 0.3 x10^3/uL (0.0-0.7); EOS % 5 % (0-3); HEMATOCRIT 38.9 % (36.0-47.0); HEMOGLOBIN 12.6 g/dL (12.0-15.5); LYMPH # 1.1 x10^3/uL (1.0-4.8); LYMPH % 16 % (24-48); MEAN CORPUSCULAR HEMOGLOBIN 31 pg (25-35); MEAN CORPUSCULAR HGB CONC 32 g/dL (31-37); MEAN CORPUSCULAR VOLUME 94 fL (79-100); MONO # 0.6 x10^3/uL (0.0-1.1); MONO % 8 % (0-9); NEUT # 5.1 x10^3uL (1.8-7.7); NEUT % 71 % (31-73); PLATELET COUNT 277 x10^3/uL (140-400); RED BLOOD COUNT 4.12 x10^6/uL (3.50-5.40); RED CELL DISTRIBUTION WIDTH 15.6 % (11.5-14.5); WHITE BLOOD COUNT 7.2 x10^3/uL (4.0-11.0)
[2018-05-31 10:13] LABS: PROTHROMBIN TIME PATIENT 12.6 SEC (11.7-14.0)
[2018-05-31 10:14] LABS: ALBUMIN 3.8 g/dL (3.4-5.0); CALCIUM 9.3 mg/dL (8.5-10.1); CREATININE 0.8 mg/dL (0.6-1.0); GFR 71.5; POTASSIUM 4.2 mmol/L (3.5-5.1)
[2018-05-31 12:29] LABS: BILIRUBIN,URINE NEGATIVE (NEG); CLARITY,URINE CLEAR; COLOR,URINE YELLOW; NITRITE,URINE POSITIVE (NEG); PH,URINE 5.5; PROTEIN,URINE NEGATIVE (NEG-TRACE)
[2018-05-31 12:35] LABS: SQUAMOUS EPITHELIAL CELL,UR FEW /LPF
[2018-05-31 12:36] LABS: BACTERIA,URINE MANY /HPF (0-FEW); HYALINE CASTS, URINE OCCASIONAL /HPF; RBC,URINE 0 /HPF (0-2)
--- NOTE | 2018-05-31 13:56 | EKG ---
[facility] [address] [place] [address] Test Date: 2018-05-31 Test Time: 13:47:21 Pat Name: JONNA PRECIADO Department: Room: Gender: F Phone Screener: AT : 1950 Requested By: KEVIN ANTUNEZ Order Number: [id number] Reading MD: Gennaro Anguiano MD Measurements Intervals [place] Rate: 58 P: 2 WA: 198 QRS: -22 QRSD: 86 T: -3 QT: 446 QTc: 441 Interpretive Statements SINUS RHYTHM consider prior inferior infarct NON-SPECIFIC ST/T CHANGES Electronically Signed On 06-03-2018 11:09:31 CDT by Gennaro Anguiano MD
--- NOTE | 2018-05-31 17:29 | RAD ---
CHEST PA LATERAL History: PRE OP RT HIP REPLACEMENT ON 06/14/18, history of stroke and myocardial infarction, previous smoker Comparison: March 08, 2016 Findings: 2 views of the chest are submitted. There is a right shoulder arthroplasty. There is again granuloma of the superior right hemithorax. There is no new lobar consolidation, pleural fluid, pneumothorax. Heart size is stable, within normal limits. 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 There may be degree of emphysema. Impression: 1. There is no significant infiltrate. Electronically signed by: Robin Mckenzie MD (05/31/2018 5:26 PM) [facility]
--- NOTE | 2018-06-11 14:52 | NUR ---
FAXED PRE - OP TEST REPORTS TO [facility] RE[facility], PATIENT'S PCP 06/01/2018 AT 1820 AND TO 'S OFFICE 06/01/2018 AT 1827 AND RECEIVED TRANSMITTAL CONFIRMATION IN BOTH OFFICES. FAXED URINE CULTURE'S REPORT TO [facility] RE[facility] 06/03/2018 AT 1400 AND TO 06/03/2018 AT 1408. CALLED [facility] OFFICE ALSO AT 1405 AND LEFT A MESSAGE ON [facility]'S VOICEMAIL RE UTI. CALLED OFFICE AGAIN 06/04/2018 AT 1015 AND GREY FRY SAID THAT [facility] PRESCRIBED MACROBID 100 MG.1 PO BID [id number] AND grey FRY ALSO TOLD PATIENT TO STOP PLAVIX 3 DAYS BEFORE SURGERY PER [facility]. UA TEST REPEATED THIS AM AT 1150. UA REPORT WAS W/IN NORMAL RANGE GIVEN TO PATIENT AND WAS HAPPY. FAXED UA REPORT TO AT 1441 06/11/2018 AND ALSO CALLED OFFICE AND NOTIFIED GREY BERGERON.
== END | disposition home or self-care (01) ==
LOC: SURGPAT 14:33
PROVIDERS: ATTEND Orthopaedic Surgery Sports Medicine
DX: Z01.818 Encounter for other preprocedural examination (principal); M16.11 Unilateral primary osteoarthritis, right hip; I21.19 ST elevation (STEMI) myocardial infarction involving other coronary artery of inferior wall; Z88.8 Allergy status to other drugs, medicaments and biological substances; Z96.611 Presence of right artificial shoulder joint; Z87.891 Personal history of nicotine dependence; Z86.73 Personal history of transient ischemic attack (TIA), and cerebral infarction without residual deficits
CPT/HCPCS: 36415; 71046; 80048; 81001; 82040; 82306; 85025; 85610; 85651; 85730; 87086; 87186; 87641; 93005

== ENCOUNTER 2018-06-14 07:10 | Inpatient (IN) | payer MEDICARE ==
[2018-06-14] VITALS (9 sets, daily range): BP systolic 99–138; BP diastolic 56–89
[~2018-06-14] VITALS: Ht 167.6 cm; Wt 89.8 kg
[~2018-06-14 07:10] MED LIST changes: +HYDROcodone/APAP 7.5/325MG 1 TAB TABLET PO PRN; +HYDROmorphone 2 MG/ML VIAL IV PRN; +IV RINGERS,LACTATED 1000ML 1,000 ML IV SCH; +LIDOCAINE 1% PF 2 ML VIAL. ID PRN; +MELOXICAM 7.5 MG TABLET PO PRN; +MORPHINE SULFATE 2 MG/ML VIAL. IV PRN; +ONDANSETRON PF 4 MG/2 ML VIAL. IV PRN; +PROCHLORPERAZINE 10 MG/2 ML VIAL. IV PRN; -WARF-78 PO; +fentaNYL PF VIAL 100 MCG/2 ML VIAL IV PRN
[2018-06-14] MEDS ORDERED: PROPOFOL 20 ML IV ONE (08:20)
[2018-06-14] MEDS ORDERED: LIDOCAINE 2% PF 5 ML VIAL. ONE (08:20)
[2018-06-14] MEDS ORDERED: DEXAMETHASONE SOD PHOS 4 MG/ML VIAL ONE (08:20)
[2018-06-14] MEDS ORDERED: ONDANSETRON PF 4 MG/2 ML VIAL. ONE (08:20)
[2018-06-14] MEDS ORDERED: MIDAZOLAM HCL/PF 2 MG/2 ML VIAL. ONE (08:21)
[2018-06-14] MEDS ORDERED: fentaNYL PF VIAL 100 MCG/2 ML VIAL ONE ×4 (08:21→12:21)
[2018-06-14] MEDS ORDERED: ROCURONIUM 50 MG/5 ML VIAL. ONE (08:21)
[2018-06-14] MEDS ORDERED: WARF-78 PO (08:36)
[2018-06-14] MEDS ORDERED: METHOCARBAMOL 750 MG TABLET PO PRN (10:00)
[2018-06-14] MEDS ORDERED: diphenhydrAMINE 50 MG/ML VIAL IV PRN (10:00)
[2018-06-14] MEDS ORDERED: traMADol 50 MG TABLET PO PRN (10:00)
[2018-06-14] MEDS ORDERED: 0.9 % SODIUM CHLORIDE 10 ML DISP.SYRIN. IV PRN (10:00)
[2018-06-14] MEDS ORDERED: CALCIUM CARBONATE 500 MG TAB.CHEW PO PRN (10:00)
[2018-06-14] MEDS ORDERED: MORPHINE SULFATE 2 MG/ML VIAL. IV PRN (10:00)
[2018-06-14] MEDS ORDERED: fentaNYL PF VIAL 100 MCG/2 ML VIAL IV PRN (10:00)
[2018-06-14] MEDS ORDERED: ZOLPIDEM 5 MG TABLET. PO PRN (10:00)
[2018-06-14] MEDS ORDERED: PROCHLORPERAZINE 5 MG TABLET. PO PRN (10:00)
[2018-06-14] MEDS ORDERED: METOCLOPRAMIDE HCL 10 MG/2 ML VIAL. IV PRN (10:00)
[2018-06-14] MEDS ORDERED: DEXTROSE 50% 25 GM / 50ML DISP.SYRIN. IV PRN (10:00)
[2018-06-14] MEDS ORDERED: PHENYLEPHRINE in 0.9% NACL PF 1 MG/10 ML SYRINGE. IV ONE (10:01)
[2018-06-14] MEDS: TV=100ml MORPHINE 5 MG, KETOROLAC 30 MG, ROPIVacaine 0.5% PF 60 ML, EPINEPH... INT ART ONE ×10 (10:49→11:08)
[2018-06-14] MEDS ORDERED: GLYCOPYRROLATE 1 MG/5 ML VIAL. ONE (11:05)
[2018-06-14] MEDS ORDERED: NEOSTIGMINE METHYLSULFATE 5 MG/5 ML SYRINGE. ONE (11:05)
[2018-06-14] MEDS ORDERED: SEVOFLURANE 61 TO 120 MINUTES. IH ONE (11:17)
--- NOTE | 2018-06-14 11:37 | PDOC4 ---
Operative Note Operative Note Date of procedure: 06/14/2018 Surgeon: Justin Antunez Asst.: Artemio Burnham, advanced practice registered nurse who was necessary to assist with manipulating the leg and holding retractors as well as wound closure for this procedure Preoperative diagnosis: Advanced right hip primary degenerative joint disease Postoperative diagnosis: Same Procedure performed: right total hip arthroplasty Anesthesia: Gen. Findings: Advanced primary degenerative joint disease of right hip. Blood loss: 500 mL Complications: None Components inserted: Jefferson and nephew 52 mm R3 shell with a 20 posteriorly directed liner, size 5 standard offset anthology stem with a 36+0 Oxinium head Reason for procedure: Patient is a very pleasant individual with severe progressive pain interfering with her activities of daily living and attributable to the above preoperative diagnosis. Clinical and radiographic examination were consistent with the above preoperative diagnosis and after discussion of the risks, benefits, and alternatives, taking into account her failure of conservative therapies, the patient elected to proceed with surgery. Description of procedure: Patient was greeted in the preoperative area by myself for the correct extremity was verified and marked. Shee was taken back to the operative suite and antibiotics were started as they were brought back. Once in the operative room, patient was transferred gently supine to the operating table and secured to the bed with all pressure points padded. Axillary roll was used. The down leg was padded at the fibular head and heel. Patient was secured the bed with our hip positioning devices. I then appreciated leg lengths in this position. After this, the operative extremity was prepped and draped in her usual sterile fashion including an Ioban Carmichael. We then proceeded to conduct our standard preoperative timeout. I then palpated and marked surface anatomy and aquiles a line from my standard posterolateral skin incision. Skin was incised with a scalpel and subcutaneous tissue was dissected down the level of fascia with electrocautery. Bleeders were cauterized as they were encountered. Paul elevator was used to sweep aside adherent subcutaneous tissue for later identification and repair of the fascia. Fascia was then incised in line with the skin incision and the gluteus janine was split bluntly in line with its fibers. There was abundant fibrotic tissue present and I excised some of this for exposure. After this, a lap was used to push bursal tissue posteriorly to identify the piriformis and quadratus, these were taken down, the piriformis was tagged for later repair. Our self-retaining retractor was in place. At this point, I identified the hip capsule incised in a T-type incision, tagging ends for later repair. The hip was dislocated. I then palpated and marked with electrocautery areas at the greater and lesser trochanters and center of the femoral head and I made measurements for length and offset. I then aquiles a line on the neck about 1 cm proximal lesser trochanter and made my neck cut through this. The bony remnant was delivered from the operative field. We placed our acetabular retractors and inspected the acetabulum. I excised the soft tissues from the floor the acetabulum as well as the labrum. Osteophytes were taken down posteriorly. After this, we began reaming and reamed down until we encountered a punctate bleeding bony bed. The operative field and then thoroughly irrigated out. The cup was then impacted referencing [place] anatomy and the crossbar attachment. I had identified the transverse acetabular ligament. After this, I palpated for the posterior column and greater sciatic notch and referenced this to place a screw into the posterior column. The operative field was irrigated again and my polyethylene liner was then impacted in position and confirmed that it was fully seated on circumferential visualization. We then removed our acetabular retractors and used our proximal femoral elevator and repositioned the leg. I used the lindesy cutting osteotome followed by canal finding reamer followed by lateralizing reamer. We then began broaching and broached to the above size and trialed different head and necks, using our measurements as a guide as well. The above sizes gave the best range of motion and stability. After this, the trial components were removed and the canal was thoroughly irrigated. I then impacted my femoral stem and position. We then re-trialed the head sizes and selected the above size. The hip was redislocated and the Soria taper region was washed and dried. The femoral head was then gently impacted in position and the acetabulum was inspected and irrigated to make sure was free of debris. After this, the hip was reduced. Excellent range of motion and stability were achieved. I was happy with the leg lengths. We then closed capsule with simple interrupted #2 Ethibond. Piriformis was reapproximated through drill holes. I then injected my periarticular mixture into the yoanna-incisional soft tissues below. Fascia was closed was running #2 Quill suture. Inverted interrupted 2-0 Vicryl in a multilayered fashion was used for subcutaneous tissue and running 3-0 Monocryl for skin. Prior to wound closure, all counts correct 2. No complications. At the conclusion, the hip region was cleansed and dried and our incisional wound vacuum was applied. Patient tolerated surgery well. At the conclusion, they were laid supine and transferred gently supine to the hospital bed and taken to PACU in a stable and extubated condition. Post operative plan is to admit the patient to the joint center for DVT and antibiotic prophylaxis as well as to begin the rehabilitation and receive likely IV pain medicine. JUSTIN ANTUNEZ II, MD June 14, 2018 11:37
[2018-06-14] MEDS ORDERED: IV NORMAL SALINE 1000ML BAG 1,000 ML IV SCH (12:00)
[2018-06-14] MEDS ORDERED: PROCHLORPERAZINE 10 MG/2 ML VIAL. ONE (12:08)
[2018-06-14] MEDS: fentaNYL PF VIAL 100 MCG/2 ML VIAL IV PRN ×5 (12:18→21:08)
[2018-06-14] MEDS ORDERED: MORPHINE SULFATE 2 MG/ML VIAL. ONE (12:21)
--- NOTE | 2018-06-14 12:41 | RAD ---
Portable pelvis, 06/14/2018: HISTORY: Postop evaluation Comparison is made to a study from 05/06/2018. A right total hip prosthesis has been placed in satisfactory position. There is mild degenerative change at the left hip joint. Old postsurgical changes with instrumentation are again evident in the lower lumbar spine. There is no evidence of a retained surgical instrument, needle or radiopaque sponge. Electronically signed by: Jose L Kirby MD (06/14/2018 12:38 PM) [facility]
[2018-06-14] MEDS: ALPRAZolam 0.5 MG TABLET PO SCH ×2 (14:00→17:59)
[2018-06-14] MEDS: GABAPENTIN 300 MG CAPSULE. PO SCH ×2 (14:34→21:13)
--- NOTE | 2018-06-14 15:06 | NUR ---
jd is rating her pain "7". she has good motion, sensation and pulses bilateral lower extremities. strength is slightly less in right leg compared to left. friend at bedside. tolerating liquids well. after friend departs, dozes. O2 is on at 4l nc sating 95-97 % .
[2018-06-14] MEDS ORDERED: WARFARIN 7.5 MG TABLET. PO ONE (16:00)
--- NOTE | 2018-06-14 17:00 | NUR ---
Leticia wants to return to bed. it is too painful to be up in chair.medicated with Roxicodone. transfers well using walker. dressing to right hip is clean and dry.
[2018-06-14] MEDS: FERROUS SULFATE 325 MG TABLET. PO SCH (17:58)
[2018-06-14] MEDS: oxyCODONE IR 5 MG TABLET PO PRN (17:58)
[2018-06-14] MEDS: ONDANSETRON PF 4 MG/2 ML VIAL. IV SCH (17:59)
[2018-06-14] MEDS ORDERED: KETOROLAC 30MG VIAL 30 MG, BUPIVACAINE MPF 0.25% 20 ML, EPINEPHrine 0.5 MG in TOTAL VOL... INT ART SCH (18:00)
[2018-06-14] MEDS: ONDANSETRON ODT 4 MG TAB.RAPDIS. PO SCH (18:00)
[2018-06-14] MEDS ORDERED: NON FORMULARY ITEM (Melatonin 10 MG) PO SCH (21:00)
--- NOTE | 2018-06-14 21:10 | NUR ---
Assisted to toilet, ambulates w/o difficulty w/ walker and SBA. Medicated for pain. Dressing D/I. Became anxious and began to stutter when she thought that a male BORDER PATROL AGENT was going to assist her w/ the bathroom.
[2018-06-14] MEDS: diphenhydrAMINE HCL 25 MG CAPSULE PO SCH (21:13)
[2018-06-14] MEDS: busPIRone 10 MG TABLET. PO SCH (21:13)
[2018-06-14] MEDS: ATORVASTATIN CALCIUM 20 MG TABLET PO SCH (21:13)
[2018-06-15] MEDS: oxyCODONE IR 5 MG TABLET PO PRN ×6 (00:58→20:45)
[2018-06-15 03:00] VITALS: BP 110/56
--- NOTE | 2018-06-15 05:18 | NUR ---
Ambulated to toilet, dragging her right foot-"it's a habit." Right ankle is fused and doesn't abduct or adduct. ARLENE estrada and SCDs removed for skin check. Will leave off for a while.
[2018-06-15] MEDS ORDERED: MAGNESIUM HYDROXIDE 2,400 MG/30 ML ORAL.SUSP. PO PRN (06:00)
[2018-06-15] MEDS: ONDANSETRON ODT 4 MG TAB.RAPDIS. PO SCH ×3 (06:00→12:00)
[2018-06-15] MEDS: ONDANSETRON PF 4 MG/2 ML VIAL. IV SCH ×3 (06:00→12:00)
[2018-06-15] MEDS: LEVOTHYROXINE 50 MCG TABLET PO SCH (06:21)
[2018-06-15] MEDS: fentaNYL PF VIAL 100 MCG/2 ML VIAL IV PRN (06:22)
[2018-06-15 06:25] VITALS: BP 103/63
[2018-06-15] MEDS: FERROUS SULFATE 325 MG TABLET. PO SCH ×2 (07:35→17:03)
[2018-06-15] MEDS: GABAPENTIN 300 MG CAPSULE. PO SCH ×3 (07:35→20:45)
[2018-06-15] MEDS: DULoxetine HCL 30 MG CAPSULE.DR PO SCH (07:43)
[2018-06-15] MEDS: MULTIVITAMIN with MINERAL TABLET. PO SCH (07:43)
[2018-06-15] MEDS: ALPRAZolam 0.5 MG TABLET PO PRN (07:43)
[2018-06-15] MEDS: MAGNESIUM OXIDE 400 MG TABLET PO SCH (07:43)
[2018-06-15] MEDS: SENNOSIDES/DOCUSATE 8.6/50MG TABLET. PO SCH (07:43)
[2018-06-15] MEDS: ACETAMINOPHEN 500 MG TABLET PO SCH ×3 (07:50→20:45)
[2018-06-15] MEDS: busPIRone 10 MG TABLET. PO SCH ×2 (07:54→20:45)
--- NOTE | 2018-06-15 07:57 | PDOC ---
ORTHO PROGRESS NOTES Subjective Lateral hip pain, moderate. No other complaints Vitals Vital Signs Date Time Temp Pulse Resp B/P (MAP) Pulse Ox O2 Delivery O2 Flow Rate FiO2 06/15/18 07:38 Room Air 06/15/18 06:26 20 06/15/18 06:25 98.8 69 103/63 (76) 94 98.8 06/14/18 22:59 2.0 Labs Laboratory Tests Test 06/14/18 08:30 Prothrombin Time 13.0 SEC (11.7-14.0) Prothromb Time International Ratio 1.0 (0.8-1.1) Activated Partial Thromboplast Time 29 SEC (24-38) Laboratory Tests Test 06/14/18 08:30 Prothrombin Time 13.0 SEC (11.7-14.0) Prothromb Time International Ratio 1.0 (0.8-1.1) Activated Partial Thromboplast Time 29 SEC (24-38) Notes A and A normal motor and sensation in RLE incision ok Assessment and Plan PT/OT may adjust pain regimen will likely need placement KEVIN ANTUNEZ II, MD June 15, 2018 07:57
[2018-06-15 08:01] LABS: PROTHROMBIN TIME PATIENT 13.2 SEC (11.7-14.0)
[2018-06-15 11:15] VITALS: BP 98/53
[2018-06-15] MEDS ORDERED: ONDANSETRON PF 4 MG/2 ML VIAL. IV PRN (12:00)
[2018-06-15] MEDS ORDERED: ONDANSETRON ODT 4 MG TAB.RAPDIS. PO PRN (12:00)
--- NOTE | 2018-06-15 12:10 | NUR ---
Zofran not given, pt tolerating diet well.
--- NOTE | 2018-06-15 14:12 | NUR ---
Pharmacy Warfarin Dosing Note S:Pharmacy consulted to assist with anticoagulation therapy started 06/14/18 with target INR: 1.6 - 2.5 O:JONNA PRECIADO is a 67 year old F with YANCI, right LABS: Last INR: 1.0 Last HGB: 10.7 Last HCT: - Last PLT: - Last dose of 7.5 mg given on 06/14/18 at 1758 Vitamin K given: N Drug Interaction Changes: New Interacting Drug Ongoing Drug Interactions: Cymbalta A:INR of 1.0 is below desired range. Target range for this patient is: 1.6 - 2.5 P: Warfarin dose: 5 mg Today at 1600 Bridge Therapy: None Next INR due 06/16/18 Pharmacy anticoagulation service will continue to follow. [facility], 06/15/18 [id number]
[2018-06-15] MEDS ORDERED: WARFARIN 5 MG TABLET. PO ONE (16:00)
[2018-06-15] MEDS ORDERED: BISACODYL 10 MG SUPP.RECT. PR PRN (16:00)
[2018-06-15 18:36] VITALS: BP 79/58
[2018-06-15] MEDS: diphenhydrAMINE HCL 25 MG CAPSULE PO SCH (20:44)
[2018-06-15] MEDS: ATORVASTATIN CALCIUM 20 MG TABLET PO SCH (20:45)
[2018-06-15] MEDS: DOCUSATE SODIUM 100 MG CAPSULE. PO SCH (20:45)
[2018-06-15 23:00] VITALS: BP 93/60
[2018-06-16] MEDS: ACETAMINOPHEN 500 MG TABLET PO SCH ×4 (03:04→20:41)
[2018-06-16] MEDS: oxyCODONE IR 5 MG TABLET PO PRN ×4 (03:06→20:35)
[2018-06-16 03:20] VITALS: BP 96/58
[2018-06-16 05:00] VITALS: BP 90/58
[2018-06-16 06:31] LABS: HEMATOCRIT 27.3 % (36.0-47.0); HEMOGLOBIN 9.1 g/dL (12.0-15.5)
[2018-06-16 06:36] LABS: PROTHROMBIN TIME PATIENT 19.1 SEC (11.7-14.0)
[2018-06-16] MEDS: LEVOTHYROXINE 50 MCG TABLET PO SCH (06:46)
[2018-06-16] MEDS: FERROUS SULFATE 325 MG TABLET. PO SCH ×2 (08:15→17:01)
[2018-06-16] MEDS: MULTIVITAMIN with MINERAL TABLET. PO SCH (08:15)
[2018-06-16] MEDS: busPIRone 10 MG TABLET. PO SCH ×2 (08:15→20:41)
[2018-06-16] MEDS: SENNOSIDES/DOCUSATE 8.6/50MG TABLET. PO SCH (08:15)
[2018-06-16] MEDS: MAGNESIUM OXIDE 400 MG TABLET PO SCH (08:15)
[2018-06-16] MEDS: GABAPENTIN 300 MG CAPSULE. PO SCH ×3 (08:16→20:41)
[2018-06-16] MEDS: DULoxetine HCL 30 MG CAPSULE.DR PO SCH (08:16)
[2018-06-16] MEDS: DOCUSATE SODIUM 100 MG CAPSULE. PO SCH ×2 (08:16→20:41)
[2018-06-16] MEDS: ALPRAZolam 0.5 MG TABLET PO PRN ×2 (08:16→23:25)
--- NOTE | 2018-06-16 11:11 | PDOC ---
ORTHO PROGRESS NOTES Subjective She is happy with how well she is progressing, but does not feel safe Vitals Vital Signs Date Time Temp Pulse Resp B/P (MAP) Pulse Ox O2 Delivery O2 Flow Rate FiO2 06/16/18 09:55 Room Air 06/16/18 05:00 97.7 83 16 90/58 (69) 93 97.7 06/16/18 03:06 2.0 Labs Laboratory Tests Test 06/15/18 06:48 06/16/18 05:30 Hemoglobin 10.7 g/dL (12.0-15.5) 9.1 g/dL (12.0-15.5) Prothrombin Time 13.2 SEC (11.7-14.0) 19.1 SEC (11.7-14.0) Prothromb Time International Ratio 1.0 (0.8-1.1) 1.6 (0.8-1.1) Hematocrit 27.3 % (36.0-47.0) Mean Corpuscular Hemoglobin Concent 33 g/dL (31-37) Laboratory Tests Test 06/16/18 05:30 Hemoglobin 9.1 g/dL (12.0-15.5) Hematocrit 27.3 % (36.0-47.0) Mean Corpuscular Hemoglobin Concent 33 g/dL (31-37) Prothrombin Time 19.1 SEC (11.7-14.0) Prothromb Time International Ratio 1.6 (0.8-1.1) Notes A and A in chair KEVIN ROWLEY II, MD June 16, 2018 11:11
[2018-06-16 11:20] VITALS: BP 93/53
[2018-06-16 12:35] LABS: BILIRUBIN,URINE NEGATIVE (NEG); CLARITY,URINE CLEAR; COLOR,URINE YELLOW; NITRITE,URINE NEGATIVE (NEG); PROTEIN,URINE NEGATIVE (NEG-TRACE); UROBILINOGEN,URINE 0.2 mg/dL (0.2 mg/dL)
--- NOTE | 2018-06-16 12:54 | NUR ---
Pharmacy Warfarin Dosing Note S:Pharmacy consulted to assist with anticoagulation therapy started 06/14/18 with target INR: 1.6 - 2.5 O:JONNA PRECIADO is a 67 year old F with YANCI right LABS: Last INR: 1.6 Last HGB: 9.1 Last HCT: 27.3 Last PLT: - Last dose of 5 mg given on 06/15/18 at 1758 Previous Regimen: Vitamin K given: N Drug Interaction Changes: New Interacting Drug Ongoing Drug Interactions: Cymbalta A:INR of 1.6 is within desired range. Target range for this patient is: 1.6 - 2.5 P: Warfarin dose: 5 mg Today at 1600 Bridge Therapy: None Next INR due TOMORROW. Pharmacy anticoagulation service will continue to follow. NANDINI SINGH Jorge, 06/16/18 [id number]
[2018-06-16 13:03] LABS: BACTERIA,URINE FEW /HPF (0-FEW); HYALINE CASTS, URINE MODERATE /HPF; RBC,URINE OCC /HPF (0-2); SQUAMOUS EPITHELIAL CELL,UR FEW /LPF
--- NOTE | 2018-06-16 13:09 | PATHOLOGY ---
[facility] Accession Number: [id number] . 01 Material submitted: . femur - RIGHT HIP BONE. Modifiers: right, head . 01 Clinical history: . Degenerative joint disease . 02 Diagnosis: Femoral head, right hip arthroplasty: - Advanced degenerative arthritis. (JPM:suri; 06/16/2018) QMS/06/16/2018 . 02 Electronically signed: . Abran Boone MD, Pathologist NPI- [id number] . 01 Gross description: . The specimen is received in formalin, labeled "Stephania Kunz, right hip bone". Received is a femoral head with attached femoral neck measuring 4.7 x 4.7 x 5.8 cm in greatest dimensions. The articular surface is pale burger and irregular in contour with evidence of eburnation and a slight amount of osteophytic lipping. Sectioning reveals light burger to red-burger cut surfaces with no grossly distinct nodules or lesions. The specimen is submitted representatively in cassette A1, following decalcification. (CAA; 06/15/2018) QAC/QAC . 02 Pathologist provided ICD-10: M16.11 . 02 CPT . 536823, [id number] Specimen Comment: A courtesy copy of this report has been sent to Specimen Comment: [phone], . Specimen Comment: Report sent to / DR ESTRADA Performed at: 01 [facility] [address], [place] [id number] MD Tahir Hernandez MD Phone: [phone] Performed at: 02 [facility] [address], [place] [id number] MD Abran Boone MD Phone: [phone]
[2018-06-16] MEDS ORDERED: WARFARIN 3 MG TABLET. PO ONE (16:00)
[2018-06-16 17:00] VITALS: BP 99/64
[2018-06-16] MEDS ORDERED: BISACODYL 10 MG SUPP.RECT. PR ONE (20:15)
[2018-06-16] MEDS: ATORVASTATIN CALCIUM 20 MG TABLET PO SCH (20:41)
[2018-06-16] MEDS: diphenhydrAMINE HCL 25 MG CAPSULE PO SCH (20:45)
[2018-06-17] MEDS: oxyCODONE IR 5 MG TABLET PO PRN ×3 (00:31→13:47)
[2018-06-17] MEDS: ACETAMINOPHEN 500 MG TABLET PO SCH ×3 (03:00→15:19)
[2018-06-17 04:37] LABS: HEMATOCRIT 28.6 % (36.0-47.0); HEMOGLOBIN 9.2 g/dL (12.0-15.5)
[2018-06-17 05:30] VITALS: BP 113/69
[2018-06-17] MEDS: LEVOTHYROXINE 50 MCG TABLET PO SCH (05:58)
--- NOTE | 2018-06-17 06:31 | NUR ---
+ BM earlier after Bisacodyl suppository given. Anticipates dismissal to [place] today.
[2018-06-17] MEDS: ALPRAZolam 0.5 MG TABLET PO PRN (07:16)
[2018-06-17] MEDS: busPIRone 10 MG TABLET. PO SCH (07:20)
[2018-06-17] MEDS: GABAPENTIN 300 MG CAPSULE. PO SCH ×2 (08:18→15:18)
[2018-06-17] MEDS: DOCUSATE SODIUM 100 MG CAPSULE. PO SCH (08:18)
[2018-06-17] MEDS: MULTIVITAMIN with MINERAL TABLET. PO SCH (08:18)
[2018-06-17] MEDS: MAGNESIUM OXIDE 400 MG TABLET PO SCH (08:18)
[2018-06-17] MEDS: SENNOSIDES/DOCUSATE 8.6/50MG TABLET. PO SCH (08:18)
[2018-06-17] MEDS: DULoxetine HCL 30 MG CAPSULE.DR PO SCH (08:18)
[2018-06-17] MEDS: FERROUS SULFATE 325 MG TABLET. PO SCH ×2 (08:18→16:58)
--- NOTE | 2018-06-17 08:50 | PDOC3 ---
Discharge Summary Visit Information Date of Admission: June 14, 2018 Date of Discharge: June 17, 2018 Admitting Diagnosis: advanced right hip primary degenerative joint disease Brief Hospital Course Allergies Allergies Coded Allergies Type Severity Reaction Last Updated Verified I S O L A T I O N *CONTACT* Allergy Unknown 05/28/18 Yes lactose Adverse Reaction Intermediate LACTOSE INTOLERANT 05/28/18 Yes codeine Adverse Reaction Mild cramp, vomit 05/28/18 Yes Vital Signs Vital Signs Date Time Temp Pulse Resp B/P (MAP) Pulse Ox O2 Delivery O2 Flow Rate FiO2 06/17/18 05:30 98.4 88 18 113/69 (84) 92 Room Air 98.4 Lab Results Laboratory Tests Test 06/16/18 05:30 06/16/18 12:20 06/17/18 04:05 Hemoglobin 9.1 g/dL (12.0-15.5) 9.2 g/dL (12.0-15.5) Hematocrit 27.3 % (36.0-47.0) 28.6 % (36.0-47.0) Mean Corpuscular Hemoglobin Concent 33 g/dL (31-37) 32 g/dL (31-37) Prothrombin Time 19.1 SEC (11.7-14.0) 25.0 SEC (11.7-14.0) Prothromb Time International Ratio 1.6 (0.8-1.1) 2.3 (0.8-1.1) Urine Collection Type Unknown Urine Color Yellow Urine Clarity Clear Urine pH 5.0 Urine Specific [place] 1.020 Urine Protein Negative mg/dL (NEG-TRACE) Urine Glucose (UA) Negative mg/dL (NEG) Urine Ketones (Stick) Negative mg/dL (NEG) Urine Blood Negative (NEG) Urine Nitrite Negative (NEG) Urine Bilirubin Negative (NEG) Urine Urobilinogen Dipstick 0.2 mg/dL (0.2 mg/dL) Urine Leukocyte Esterase Negative (NEG) Urine RBC Occ /HPF (0-2) Urine WBC 1-4 /HPF (0-4) Urine Squamous Epithelial Cells Few /LPF Urine Bacteria Few /HPF (0-FEW) Urine Hyaline Casts Moderate /HPF Urine Mucus Marked /LPF Laboratory Tests Test 06/16/18 12:20 06/17/18 04:05 Urine Collection Type Unknown Urine Color Yellow Urine Clarity Clear Urine pH 5.0 Urine Specific [place] 1.020 Urine Protein Negative mg/dL (NEG-TRACE) Urine Glucose (UA) Negative mg/dL (NEG) Urine Ketones (Stick) Negative mg/dL (NEG) Urine Blood Negative (NEG) Urine Nitrite Negative (NEG) Urine Bilirubin Negative (NEG) Urine Urobilinogen Dipstick 0.2 mg/dL (0.2 mg/dL) Urine Leukocyte Esterase Negative (NEG) Urine RBC Occ /HPF (0-2) Urine WBC 1-4 /HPF (0-4) Urine Squamous Epithelial Cells Few /LPF Urine Bacteria Few /HPF (0-FEW) Urine Hyaline Casts Moderate /HPF Urine Mucus Marked /LPF Hemoglobin 9.2 g/dL (12.0-15.5) Hematocrit 28.6 % (36.0-47.0) Mean Corpuscular Hemoglobin Concent 32 g/dL (31-37) Prothrombin Time 25.0 SEC (11.7-14.0) Prothromb Time International Ratio 2.3 (0.8-1.1) Brief Hospital Course Ms. Kunz is a 67 old female who presented to my outpatient orthopedic surgery clinic with complaints of severe and progressive pain that failed conservative therapies including injections. We had a discussion of the risks, benefits, alternatives to total hip arthroplasty and she elected to proceed. She tolerated surgery well and recovered well from anesthesia in the PACU. She was then taken to the joint Center for care and observation. She did receive PT, OT, DVT and antibiotic prophylaxis. She recovered well from surgery and remained hemodynamically stable and afebrile throughout the hospitalization. Pain was controlled on oral pain medicine at the time of discharge. Good progress was made with therapy throughout the hospitalization, and activities of daily living were accomplished by the patient. The incision was clean dry and intact and the operative extremity had normal motor and sensation. Discharge Information Condition at Discharge: Stable Disposition/Orders: D/C to Another Facility Scheduled Alprazolam (Xanax) 0.5 Mg Tablet, 1 TAB PO TID, #90 (Reported) Entered as Reported by: FRANCESCO MARTINES on 12/10/15 1406 Last Action: Continued on 06/14/18 0953 by YENI ANTUNEZ MD Atorvastatin Calcium (Atorvastatin Calcium) 20 Mg Tablet, 1 TAB PO QHS for HIGH CHOLESTEROL, #30 Ref 5 (Reported) Entered as Reported by: NUSRAT CARPENTER on 05/28/18 0937 Last Action: Continued on 06/14/18952 by YENI ANTUNEZ MD Buspirone Hcl (Buspirone Hcl) 10 Mg Tablet, 10 MG PO BID, (Reported) Entered as Reported by: ENEDINA NOLASCO on 11/30/15 1044 Last Taken: Unknown Dose on 06/13/18 Last Action: Continued on 06/14/18952 by YENI ANTUNEZ MD Clopidogrel Bisulfate (Plavix) 75 Mg Tablet, 75 MG PO DAILY for TO PREVENT BLOOD CLOTS, #30 Ref 0 (Reported) Entered as Reported by: ENEDINA NOLASCO on 11/30/15 1044 Last Taken: Unknown Dose on 06/07/18 Last Action: HELD on 06/14/18952 by YENI ANTUNEZ MD Diphenhydramine Hcl (Benadryl) 25 Mg Capsule, 1 CAP PO QHS for allergy, #30 Ref 1 (Reported) Entered as Reported by: NUSRAT CARPENTER on 05/28/18 09 Last Action: Continued on 06/14/18952 by YENI ANTUNEZ MD Duloxetine Hcl (Cymbalta) 60 Mg Capsule.dr, 60 MG PO DAILY, (Reported) Entered as Reported by: ENEDINA NOLASCO on 11/30/15 1044 Last Taken: Unknown Dose on 06/13/18 0800 Last Action: Converted on 06/14/18952 by YENI ANTUNEZ MD Gabapentin (Gabapentin) 600 Mg Tablet, 600 MG PO TID, (Reported) Entered as Reported by: BARBIE MUIR on 04/28/17 1020 Last Action: Converted on 06/14/18952 by YENI ANTUNEZ MD Levothyroxine Sodium (Levothyroxine Sodium) 50 Mcg Tablet, 1 TAB PO DAILY for HYPOTHYROID, #30 Ref 5 (Reported) Entered as Reported by: NUSRAT CARPENTER on 05/28/18 09 Last Taken: Unknown Dose on 06/13/18 Last Action: Converted on 06/14/18952 by YENI ANTUNEZ MD Magnesium Oxide (Magnesium Oxide) 400 Mg Tablet, 1 TAB PO DAILY for SUPPLEMENT, #30 Ref 5 (Reported) Entered as Reported by: NUSRAT CARPENTER on 05/28/18 0942 Last Action: Converted on 06/14/18952 by YENI ANTUNEZ MD Melatonin (Melatonin) 3 Mg Tablet, 10 MG PO HS, (Reported) Entered as Reported by: BARBIE MUIR on 04/28/17 1020 Last Action: Converted on 06/14/18952 by YENI ANTUNEZ MD Robson-3 Fatty Acids/Fish Oil (Fish Oil 1,000 Mg Softgel) 1 Each Capsule, 1 EACH PO TID for SUPPLEMENT, (Reported) Entered as Reported by: NUSRAT CARPENTER on 05/28/18 0949 Last Taken: Unknown Dose on 06/07/18 Last Action: HELD on 06/14/18953 by YENI ANTUNEZ MD Turmeric Root Extract (Turmeric) 538 Mg Capsule, 1 CAP PO DAILY for SUPPLEMENT, (Reported) Entered as Reported by: BARBIE MUIR on 04/28/17 1020 Last Action: HELD on 06/14/18952 by YENI ANTUNEZ MD Ubidecarenone (Coq10) 50 Mg Tab.chew, 50 MG PO DAILY, (Reported) Entered as Reported by: BARBIE MUIR on 04/28/17 1020 Last Action: HELD on 06/14/18952 by YENI ANTUNEZ MD Scheduled PRN Methocarbamol (Robaxin-750) 750 Mg Tablet, 1 TAB PO PRN PRN for PAIN, #60 (Reported) Entered as Reported by: NUSRAT CARPENTER on 05/28/18 0928 Last Action: Continued on 06/14/18952 by YENI ANTUNEZ MD Tramadol Hcl (Tramadol Hcl) 50 Mg Tablet, 50 MG PO Q8HRS PRN for PAIN, (Reported) Entered as Reported by: FRANCESCO MARTINES on 12/10/15 1406 Last Action: Continued on 06/14/18952 by YENI ANTUNEZ MD Miscellaneous Medications Calcium Carb & Cit/Vitamin D3 (Calcium + D3 Er Tablet) 1 Each Tablet.er, 1 EACH PO, (Reported) Entered as Reported by: ENEDINA NOLASCO on 11/30/15 1044 Last Action: HELD on 06/14/18952 by YENI ANTUNEZ MD Multivitamin (Multivitamins) 1 Each Tablet, 1 EACH PO, (Reported) Entered as Reported by: ENEDINA NOLASCO on 11/30/15 1044 Last Action: Reviewed on 05/28/1840 by NUSRAT CARPENTER Discontinued Medications Warfarin Sodium (Coumadin) 5 Mg Tablet, 5 MG PO 1X for PREOP, (Reported) X1 NIGHT PRIOR TO SURGERY Entered as Reported by: DIAMANTE OSBORNE on 06/14/18 0836 Last Action: HELD on 06/14/18953 by YENI ANTUNEZ MD Patient Instructions Patient Instructions She will be transferred to [place]. We will get her started on outpatient therapy as soon as we are able. The patient will be on Coumadin for a month. She can weight-bear as tolerated. Worrisome signs and symptoms that should prompt a phone call to my office were discussed. We'll see her back in 2 weeks, sooner should a problem arise. KEVIN ANTUNEZ II, MD June 17, 2018 08:50
--- NOTE | 2018-06-17 08:51 | PDOC ---
ORTHO PROGRESS NOTES Subjective She feels like she is doing very well. Her pain is tolerable. Vitals Vital Signs Date Time Temp Pulse Resp B/P (MAP) Pulse Ox O2 Delivery O2 Flow Rate FiO2 06/17/18 05:30 98.4 88 18 113/69 (84) 92 Room Air 98.4 Labs Laboratory Tests Test 06/16/18 05:30 06/16/18 12:20 06/17/18 04:05 Hemoglobin 9.1 g/dL (12.0-15.5) 9.2 g/dL (12.0-15.5) Hematocrit 27.3 % (36.0-47.0) 28.6 % (36.0-47.0) Mean Corpuscular Hemoglobin Concent 33 g/dL (31-37) 32 g/dL (31-37) Prothrombin Time 19.1 SEC (11.7-14.0) 25.0 SEC (11.7-14.0) Prothromb Time International Ratio 1.6 (0.8-1.1) 2.3 (0.8-1.1) Urine Collection Type Unknown Urine Color Yellow Urine Clarity Clear Urine pH 5.0 Urine Specific [place] 1.020 Urine Protein Negative mg/dL (NEG-TRACE) Urine Glucose (UA) Negative mg/dL (NEG) Urine Ketones (Stick) Negative mg/dL (NEG) Urine Blood Negative (NEG) Urine Nitrite Negative (NEG) Urine Bilirubin Negative (NEG) Urine Urobilinogen Dipstick 0.2 mg/dL (0.2 mg/dL) Urine Leukocyte Esterase Negative (NEG) Urine RBC Occ /HPF (0-2) Urine WBC 1-4 /HPF (0-4) Urine Squamous Epithelial Cells Few /LPF Urine Bacteria Few /HPF (0-FEW) Urine Hyaline Casts Moderate /HPF Urine Mucus Marked /LPF Laboratory Tests Test 06/16/18 12:20 06/17/18 04:05 Urine Collection Type Unknown Urine Color Yellow Urine Clarity Clear Urine pH 5.0 Urine Specific [place] 1.020 Urine Protein Negative mg/dL (NEG-TRACE) Urine Glucose (UA) Negative mg/dL (NEG) Urine Ketones (Stick) Negative mg/dL (NEG) Urine Blood Negative (NEG) Urine Nitrite Negative (NEG) Urine Bilirubin Negative (NEG) Urine Urobilinogen Dipstick 0.2 mg/dL (0.2 mg/dL) Urine Leukocyte Esterase Negative (NEG) Urine RBC Occ /HPF (0-2) Urine WBC 1-4 /HPF (0-4) Urine Squamous Epithelial Cells Few /LPF Urine Bacteria Few /HPF (0-FEW) Urine Hyaline Casts Moderate /HPF Urine Mucus Marked /LPF Hemoglobin 9.2 g/dL (12.0-15.5) Hematocrit 28.6 % (36.0-47.0) Mean Corpuscular Hemoglobin Concent 32 g/dL (31-37) Prothrombin Time 25.0 SEC (11.7-14.0) Prothromb Time International Ratio 2.3 (0.8-1.1) Notes She is awake and alert and sitting in a chair. Dressing is intact. Normal motor and sensation are present in her operative extremity Assessment and Plan She can be transferred to [place] today. Weight-bear as tolerated. I will see her back in 2 weeks, sooner should a problem arise KEVIN ANTUNEZ II, MD June 17, 2018 08:51
--- NOTE | 2018-06-17 10:24 | NUR ---
Pharmacy Warfarin Dosing Note S:Pharmacy consulted to assist with anticoagulation therapy started 06/14/18 with target INR: 1.6 - 2.5 O:JONNA PRECIADO is a 67 year old F with YANCI right LABS: Last INR: 2.3 Last HGB: 9.2 Last HCT: 28.6 Last PLT: - Last dose of 3 mg given on 06/16/18 at 1758 Previous Regimen: Vitamin K given: N Drug Interaction Changes: New Interacting Drug Ongoing Drug Interactions: Cymbalta A:INR of 2.3 is within desired range. Target range for this patient is: 1.6 - 2.5 P: Warfarin dose: 1 mg Today at 1600 Bridge Therapy: None Next INR due TOMORROW. Pharmacy anticoagulation service will continue to follow. NANDINI SINGH RPH, 06/17/18 1024
[2018-06-17 12:30] VITALS: BP 100/66
--- NOTE | 2018-06-17 14:10 | SNU/HH DC ---
DISCHARGE ORDERS DISCHARGE INFORMATION: DISCHARGE DATE: June 17, 2018 FINAL DIAGNOSIS R YANCI CONDITION ON DISCHARGE: Stable CODE STATUS: Code Status: Full [facility]: SNF STAY <30 DAYS: Yes HOSPICE: HOSPICE: No HOSPICE EVAL & TREAT: No LTAC: ADMIT TO LTAC: No POST DISCHARGE ORDERS: ACTIVITY ORDERS: Activity as tolerated, Avoid exertion WEIGHT BEARING STATUS: As tolerated BATHING ORDERS: Shower-keep dressing dry DIET AFTER DISCHARGE: Regular WOUND/INCISION CARE: Ice to area for comfort, Change dressing, Do not change dressing FOLLOW-UP: PHYSICIAN FOLLOW-UP: Nell in 2 wks TREATMENT/EQUIPMENT ORDERS: ADAPTIVE EQUIPMENT NEEDED: None Physical Therapy For: Evalulation/Treatment Occupational Therapy For: Evaluation/Treatment DISCHARGE MEDICATIONS: Home Meds Reported Medications [place]-3 Fatty Acids/Fish Oil (FISH OIL 1,000 MG SOFTGEL) 1 Each Capsule, 1 EACH PO TID for SUPPLEMENT, CAP 05/28/18 Magnesium Oxide (MAGNESIUM OXIDE) 400 Mg Tablet, 1 TAB PO DAILY for SUPPLEMENT, #30 TAB 5 Refills 05/28/18 Atorvastatin Calcium (ATORVASTATIN CALCIUM) 20 Mg Tablet, 1 TAB PO QHS for HIGH CHOLESTEROL, #30 TAB 5 Refills 05/28/18 Levothyroxine Sodium (LEVOTHYROXINE SODIUM) 50 Mcg Tablet, 1 TAB PO DAILY for HYPOTHYROID, #30 TAB 5 Refills 05/28/18 Methocarbamol (ROBAXIN-750) 750 Mg Tablet, 1 TAB PO PRN PRN for PAIN, #60 TAB 05/28/18 Diphenhydramine Hcl (BENADRYL) 25 Mg Capsule, 1 CAP PO QHS for allergy, #30 CAP 1 Refill 05/28/18 Turmeric Root Extract (Turmeric) 538 Mg Capsule, 1 CAP PO DAILY for SUPPLEMENT, CAP 04/28/17 Gabapentin (GABAPENTIN) 600 Mg Tablet, 600 MG PO TID, TAB 04/28/17 Melatonin (MELATONIN) 3 Mg Tablet, 10 MG PO HS, TAB 04/28/17 Ubidecarenone (COQ10) 50 Mg Tab.chew, 50 MG PO DAILY, TAB.CHEW 04/28/17 Alprazolam (XANAX) 0.5 Mg Tablet, 1 TAB PO TID, #90 TAB 12/10/15 Tramadol Hcl (TRAMADOL HCL) 50 Mg Tablet, 50 MG PO Q8HRS PRN for PAIN, TAB 12/10/15 Multivitamin (MULTIVITAMINS) 1 Each Tablet, 1 EACH PO 11/30/15 Calcium Carb & Cit/Vitamin D3 (CALCIUM + D3 ER TABLET) 1 Each Tablet.er, 1 EACH PO 11/30/15 Clopidogrel Bisulfate (PLAVIX) 75 Mg Tablet, 75 MG PO DAILY for TO PREVENT BLOOD CLOTS, #30 TAB 0 Refills 11/30/15 Buspirone Hcl (BUSPIRONE HCL) 10 Mg Tablet, 10 MG PO BID, TAB 11/30/15 Duloxetine Hcl (CYMBALTA) 60 Mg Capsule.dr, 60 MG PO DAILY, CAP 11/30/15 Discontinued Reported Medications Warfarin Sodium (COUMADIN) 5 Mg Tablet, 5 MG PO 1X for PREOP X1 NIGHT PRIOR TO SURGERY 06/14/18 KEVIN ANTUNEZ II, MD June 17, 2018 14:10
[2018-06-17 15:23] VITALS: BP 105/72
[2018-06-17] MEDS ORDERED: WARFARIN 1 MG TABLET. PO ONE (16:00)
--- NOTE | 2018-06-17 17:11 | NUR ---
Report called and spoke with Mark EWING at [place].
--- NOTE | 2018-06-17 17:24 | NUR ---
Up dated report given to Neena EWING at [place].
--- NOTE | 2018-06-17 17:48 | NUR ---
Discharge to [place] by eh garcía
== END 2018-06-17 18:00 | DRG 470 ==
LOC: OPSVCIP 07:10 → 4 SOUTHEST 13:41
PROVIDERS: ADMIT Orthopaedic Surgery Sports Medicine; ATTEND Orthopaedic Surgery Sports Medicine
PROC: 0SR906Z Replacement of Right Hip Joint with Oxidized Zirconium on Polyethylene Synthetic Substitute, Open Approach (ICD-10-PCS; principal; 2018-06-14 10:00)
DX: M16.11 Unilateral primary osteoarthritis, right hip (principal); Z88.5 Allergy status to narcotic agent; Z79.02 Long term (current) use of antithrombotics/antiplatelets; Z79.01 Long term (current) use of anticoagulants; Z79.899 Other long term (current) drug therapy; E78.00 Pure hypercholesterolemia, unspecified; E03.9 Hypothyroidism, unspecified
CPT/HCPCS: 36415; 72170; 81001; 85014; 85018; 85610; 85730; 86850; 86900; 86901; 88304; 88311; A7015; C1713; J0171; J0696; J0780; J1100; J1885; J2001; J2250; J2270; J2370; J2405; J2704; J2710; J2795; J3010; J3490; J7030; J7120; Q0162; Q0163; 97116; 97150; 97530; 97535

== ENCOUNTER 2018-10-23 18:35 | Inpatient (IN) | payer MEDICARE ==
[~2018-10-23] VITALS: Ht 165.1 cm; Wt 89.4 kg
[~2018-10-23 18:35] MED LIST changes: -HYDROcodone/APAP 7.5/325MG 1 TAB TABLET PO PRN; -HYDROmorphone 2 MG/ML VIAL IV PRN; -IV RINGERS,LACTATED 1000ML 1,000 ML IV SCH; -LIDOCAINE 1% PF 2 ML VIAL. ID PRN; -MELA3TAB2 PO; +MELA3TAB56 PO; -MELOXICAM 7.5 MG TABLET PO PRN; -MORPHINE SULFATE 2 MG/ML VIAL. IV PRN; -ONDANSETRON PF 4 MG/2 ML VIAL. IV PRN; -PROCHLORPERAZINE 10 MG/2 ML VIAL. IV PRN; -TIZA4TAB PO; +TIZA4TAB2 PO; +WARF-78 PO; -fentaNYL PF VIAL 100 MCG/2 ML VIAL IV PRN
[2018-10-23 23:00] VITALS: BP 131/56
[2018-10-23] MEDS ORDERED: GLUC100018 PO (23:41)
[2018-10-23] MEDS ORDERED: CIPR500T PO (23:46)
[2018-10-24] MEDS ORDERED: ALPRAZolam 0.5 MG TABLET PO ONE
[2018-10-24 03:53] VITALS: BP 117/68
[2018-10-24 07:00] VITALS: BP 117/62
[2018-10-24] MEDS ORDERED: UBIDECARENONE 50 MG PO SCH (09:00)
[2018-10-24] MEDS ORDERED: NON FORMULARY ITEM (Glucosamine Sulfate 2KCL (Glucosamine) 1,000 MG) PO SCH (09:00)
[2018-10-24] MEDS ORDERED: TURMERIC ROOT EXTRACT PO SCH (09:00)
[2018-10-24] MEDS: ALPRAZolam 0.5 MG TABLET PO SCH ×4 (09:16→21:27)
[2018-10-24] MEDS: busPIRone 10 MG TABLET. PO SCH ×2 (09:16→21:26)
--- NOTE | 2018-10-24 09:55 | HP ---
ADMIT DATE: 10/23/2018 HISTORY OF PRESENT ILLNESS: The patient is a 68-year-old female patient who presented to the Emergency Room of [facility] in [place] with difficulty speaking, similar to previous stroke in 2014. This started about 1630 while working at [employer]. She denied any weakness in her arms or legs. She is on Plavix. She denied any other complaints, in particular, denied any palpitation, dizziness or lightheadedness. Denied any nausea or vomiting. Denied any headache or blurring of vision. She was apparently extensively investigated at [facility]. She has had a CT scan of the head, which showed that the ventricles and sulci are mildly prominent for age. No midline shift or mass effect. There is moderate patchy low density throughout the deep subcortical periventricular white matter, no hemorrhage or extraaxial fluid collection. Posterior fossa and brainstem are unremarkable. Visualized paranasal sinuses and mastoid cells are clear, no apparent calvarial abnormality. The radiologist recommended an MRI. She has most of her care done at [facility], was seen before by Dr. Ritter and has recently had her hip replaced. A decision was made to transfer her to [facility] to consult the neurologist and to arrange for an MRI of her brain. PAST MEDICAL HISTORY: Significant for coronary artery disease, status post KS, hypertension, generalized osteoarthritis and osteoporosis, who had CVA affecting her Broca area, shingles. PAST SURGICAL HISTORY: Significant for cholecystectomy, right shoulder arthroplasty, appendectomy, hysterectomy, foot surgery, gastric bypass surgery, lumbar surgery and hernia repair. ALLERGIES: SHE IS ALLERGIC TO CODEINE. FAMILY HISTORY: Positive for brain tumor, diabetes, heart disease, hypertension and myocardial infarction. SOCIAL HISTORY: She is disabled, , nonsmoker, drinks one alcoholic drink per day. MEDICATIONS: She is currently on following medications: She is on diphenhydramine 25 mg at bedtime, Plavix 75 mg once a day, atorvastatin calcium 20 mg at bedtime, omega-3 fatty acid 1000 mg p.o. t.i.d., gabapentin 600 mg 3 times a day, duloxetine 60 mg once a day, alprazolam 0.5 mg 3 times a day, buspirone 10 mg twice a day, calcium carbonate with vitamin D one tablet twice a day, magnesium oxide 400 mg once a day, levothyroxine sodium 50 mcg once a day, multivitamin 1 tablet once a day, glucosamine sulfate 1000 mg once a day, melatonin 10 mg at bedtime. She is also on turmeric root extract 1 capsule daily as well as CoQ10 at 60 mg once a day. REVIEW OF SYSTEMS: As per history of present illness. PHYSICAL EXAMINATION: GENERAL: On examining her, she looked well and was clearly in no apparent distress, resting flat in bed. She was pale, no jaundice, cyanosis or thyromegaly. No jugular venous distention. No limb edema. VITAL SIGNS: Her heart rate was 65, blood pressure was 131/56, temperature was 97.8, respiratory rate was 20, and oxygen saturation 100% on room air. HEAD, EYES, EARS, NOSE AND THROAT: Showed normocephalic, atraumatic. NECK: Supple. HEART: Showed normal first and second heart sounds. No gallop or murmur. CHEST: Clear to auscultation. No crepitation, rhonchi. ABDOMEN: Distended, soft, nontender. NEUROLOGIC: She is awake, alert, responding appropriately. She is stuttering, but has difficulty sometimes finding the right words, but there is no obvious lateralizing sign. All her cranial nerves are intact. EXTREMITIES: She moves extremities without difficulty. LABORATORY DATA: As of admission done at [facility] Emergency Room showed a white cell count 6100, hemoglobin 11, hematocrit 35, MCV 86 and platelet count 272,000 with normal manual differential. Her chemistry showed a serum sodium 140, potassium 4.4, chloride 104, bicarbonate 25, anion gap of 11, BUN 27, creatinine 1, estimated GFR was 55 mL per minute. Her glucose was 92, calcium was 9.3. Total bilirubin, AST, ALT, alkaline phosphatase were normal. Her total protein was 7.1, albumin was 3.3. Her prothrombin time, INR and aPTT were all within normal limits. Urinalysis was essentially unremarkable. The CT scan of the head showed that the ventricles and sulci are mildly prominent for age. No midline shift or mass effect. There is moderate patchy low density throughout the deep subcortical periventricular white matter, no hemorrhage or extraaxial fluid collection. Posterior fossa and brainstem are unremarkable. The visualized paranasal sinuses and mastoid air cells are clear, no apparent calvarial abnormality. PLAN: Obviously to continue on all her medication, consult the neurologist as well as arrange for an MRI of the brain and also consult physical, occupational as well as speech therapist. PATRICIA ONEILL MD DR: FELIZ/amberly JOB#: [id number] / [id number]
[2018-10-24] MEDS ORDERED: CIPROFLOXACIN HCL 250 MG TABLET. PO ONE (10:15)
--- NOTE | 2018-10-24 10:19 | NUR ---
Pt had incontinence after Juarez was removed. Bladder scan showed about 254 mL PVR.
[2018-10-24] MEDS: GABAPENTIN 300 MG CAPSULE. PO SCH ×3 (10:39→21:26)
[2018-10-24] MEDS: MAGNESIUM OXIDE 400 MG TABLET PO SCH (10:39)
[2018-10-24] MEDS: OMEGA-3 FATTY ACIDS/FISH OIL 1,000 MG CAPSULE. PO SCH ×3 (10:39→21:27)
[2018-10-24] MEDS: CLOPIDOGREL BISULFATE 75 MG TABLET PO SCH (10:39)
[2018-10-24] MEDS: CALCIUM CARB/VIT D3 500/200 TABLET. PO SCH ×2 (10:39→17:14)
[2018-10-24] MEDS: DULoxetine HCL 30 MG CAPSULE.DR PO SCH (10:40)
[2018-10-24] MEDS: LEVOTHYROXINE 50 MCG TABLET PO SCH (10:40)
[2018-10-24] MEDS: MULTIVITAMIN with MINERAL TABLET. PO SCH (10:40)
[2018-10-24] MEDS: cefTRIAXone IV Push 1 GM VIAL. IVP SCH (10:41)
[2018-10-24 11:00] VITALS: BP 114/58
[2018-10-24 11:12] LABS: BILIRUBIN,URINE NEGATIVE (NEG); CLARITY,URINE CLEAR; COLOR,URINE YELLOW; NITRITE,URINE NEGATIVE (NEG); PH,URINE 5.5; PROTEIN,URINE NEGATIVE (NEG-TRACE)
[2018-10-24 11:29] LABS: SQUAMOUS EPITHELIAL CELL,UR OCC /LPF; WBC,URINE >40 /HPF (0-4)
[2018-10-24 11:30] LABS: RBC,URINE OCC /HPF (0-2)
[2018-10-24 11:32] LABS: BACTERIA,URINE FEW /HPF (0-FEW)
[2018-10-24 15:00] VITALS: BP 111/66
--- NOTE | 2018-10-24 18:21 | PDOC2 ---
NEUROLOGY CONSULT Date of Admission Date of Admission Full Report Dictated Patient is a 68-year-old woman who reports previous strokes in 2003 and again in 2013. It sounds as if she is also had significant trauma in her life as well. When she becomes stressed she begins to have disturbances and speech with echolalia and stuttering. She did demonstrate this while I was examining her. She is previously been evaluated with negative MRIs of her head at our facility in 2017. She hasn't MRI of her head pending at this time. It sounds more likely she was involved in a stressful situation which worsened her symptoms. If MRI is positive for an acute event and will proceed with further investigation. If negative then it may be reasonable for her to work with psychiatry to better control the anxiety disorder. DATE: 10/24/18 TIME: 18:19 Current Medications Current Medications Current Medications Alprazolam (Xanax) 0.5 mg TID PO Last administered on 10/24/18at 14:40; Start 10/24/18 at 00:00 Alprazolam (Xanax) 0.5 mg 1X ONCE PO ; Start 10/24/18 at 00:00; Stop 10/24/18 at 00:01; Status UNV Atorvastatin Calcium (Lipitor) 20 mg QHS PO ; Start 10/24/18 at 21:00 Buspirone HCl (Buspar) 10 mg BID PO Last administered on 10/24/18at 09:16; Start 10/24/18 at 09:00 Clopidogrel Bisulfate (Plavix) 75 mg DAILY PO Last administered on 10/24/18at 10:41; Start 10/24/18 at 09:00 Diphenhydramine HCl (Benadryl) 25 mg QHS PO ; Start 10/24/18 at 21:00 Levothyroxine Sodium (Synthroid) 50 mcg DAILY06 PO Last administered on 10/24/18at 10:41; Start 10/24/18 at 09:00 Magnesium Oxide (Magnesium Oxide) 400 mg DAILY PO Last administered on 10/24/18at 10:41; Start 10/24/18 at 09:00 Duloxetine HCl (Cymbalta) 60 mg DAILY PO Last administered on 10/24/18at 10:41; Start 10/24/18 at 09:00 Gabapentin (Neurontin) 600 mg TID PO Last administered on 10/24/18at 14:40; Start 10/24/18 at 09:00 Non-Formulary Medication (Glucosamine Sulfate 2KCL (Glucosamine)) 1,000 mg DAILY PO ; Start 10/24/18 at 09:00; Status UNV Non-Formulary Medication (Melatonin ) 10 mg HS PO ; Start 10/24/18 at 21:00; Status UNV Fish Oil (Fish Oil) 1,000 mg TID PO Last administered on 10/24/18at 14:40; Start 10/24/18 at 09:00 Non-Formulary Medication (Turmeric Root Extract (Turmeric)) 1 cap DAILY PO ; Start 10/24/18 at 09:00; Status UNV Non-Formulary Medication (Ubidecarenone (Coq10)) 50 mg DAILY PO ; Start 10/24/18 at 09:00; Status UNV Calcium/Vitamin D (Oscal D 500mg/ 200uts) 1 tab BIDWMEALS PO Last administered on 10/24/18at 17:14; Start 10/24/18 at 09:00 Multivitamins (Thera M Plus) 1 tab DAILY PO Last administered on 10/24/18at 10:41; Start 10/24/18 at 09:00 Ciprofloxacin (Cipro) 500 mg BID PO ; Start 10/24/18 at 21:00; Stop 10/29/18 at 21:00; Status UNV Ciprofloxacin (Cipro) 500 mg 1X ONCE PO ; Start 10/24/18 at 10:15; Stop 10/24 at 10:16; Status UNV Ceftriaxone Sodium (Rocephin) 1 gm Q24H IVP Last administered on 10/24/18at 10:41; Start 10/24/18 at 11:00 Lactobacillus Rhamnosus (Culturelle) 1 cap BID PO ; Start 10/24/18 at 21:00 Active Scripts Active Reported Ciprofloxacin Hcl 500 Mg Tablet Unknown Dose PO BID 7 Days Glucosamine (Glucosamine Sulfate 2KCL) 1,000 Mg Tablet 1,000 Mg PO DAILY Fish Oil 1,000 Mg Softgel ([place]-3 Fatty Acids/Fish Oil) 1 Each Capsule 1 Each PO TID Magnesium Oxide 400 Mg Tablet 1 Tab PO DAILY Atorvastatin Calcium 20 Mg Tablet 1 Tab PO QHS Levothyroxine Sodium 50 Mcg Tablet 1 Tab PO DAILY Benadryl (Diphenhydramine Hcl) 25 Mg Capsule 1 Cap PO QHS Turmeric (Turmeric Root Extract) 538 Mg Capsule 1 Cap PO DAILY Gabapentin 600 Mg Tablet 600 Mg PO TID Melatonin 3 Mg Tablet 10 Mg PO HS Coq10 (Ubidecarenone) 50 Mg Tab.chew 50 Mg PO DAILY Xanax (Alprazolam) 0.5 Mg Tablet 1 Tab PO TID Multivitamins (Multivitamin) 1 Each Tablet 1 Each PO Calcium + D3 Er Tablet (Calcium Carb & Cit/Vitamin D3) 1 Each Tablet.er 1 Each PO Plavix (Clopidogrel Bisulfate) 75 Mg Tablet 75 Mg PO DAILY Buspirone Hcl 10 Mg Tablet 10 Mg PO BID Cymbalta (Duloxetine Hcl) 60 Mg Capsule.dr 60 Mg PO DAILY Allergies Allergies: Coded Allergies: lactose (Verified Adverse Reaction, Intermediate, LACTOSE INTOLERANT, 05/28/18) codeine (Verified Adverse Reaction, Mild, cramp, vomit, 05/28/18) Vitals VITALS Vital Signs Date Time Temp Pulse Resp B/P (MAP) Pulse Ox O2 Delivery O2 Flow Rate FiO2 10/24/18 15:00 97.8 75 16 111/66 (81) 94 Room Air 97.8 Labs Labs Laboratory Tests Test 10/24/18 10:50 Urine Collection Type Unknown Urine Color Yellow Urine Clarity Clear Urine pH 5.5 Urine Specific [place] 1.020 Urine Protein Negative mg/dL (NEG-TRACE) Urine Glucose (UA) Negative mg/dL (NEG) Urine Ketones (Stick) Negative mg/dL (NEG) Urine Blood Negative (NEG) Urine Nitrite Negative (NEG) Urine Bilirubin Negative (NEG) Urine Urobilinogen Dipstick 1.0 mg/dL (0.2 mg/dL) Urine Leukocyte Esterase Large (NEG) Urine RBC Occ /HPF (0-2) Urine WBC >40 /HPF (0-4) Urine Squamous Epithelial Cells Occ /LPF Urine Bacteria Few /HPF (0-FEW) Urine Mucus Marked /LPF Laboratory Tests Test 10/24/18 10:50 Urine Collection Type Unknown Urine Color Yellow Urine Clarity Clear Urine pH 5.5 Urine Specific [place] 1.020 Urine Protein Negative mg/dL (NEG-TRACE) Urine Glucose (UA) Negative mg/dL (NEG) Urine Ketones (Stick) Negative mg/dL (NEG) Urine Blood Negative (NEG) Urine Nitrite Negative (NEG) Urine Bilirubin Negative (NEG) Urine Urobilinogen Dipstick 1.0 mg/dL (0.2 mg/dL) Urine Leukocyte Esterase Large (NEG) Urine RBC Occ /HPF (0-2) Urine WBC >40 /HPF (0-4) Urine Squamous Epithelial Cells Occ /LPF Urine Bacteria Few /HPF (0-FEW) Urine Mucus Marked /LPF VAN BARKER MD Oct 24, 2018 18:21
[2018-10-24 19:53] VITALS: BP 115/66
[2018-10-24] MEDS ORDERED: ATORVASTATIN CALCIUM 20 MG TABLET PO SCH (21:00)
[2018-10-24] MEDS ORDERED: diphenhydrAMINE HCL 25 MG CAPSULE PO SCH (21:00)
[2018-10-24] MEDS ORDERED: CIPROFLOXACIN HCL 250 MG TABLET. PO SCH (21:00)
[2018-10-24] MEDS ORDERED: NON FORMULARY ITEM (Melatonin 10 MG) PO SCH (21:00)
[2018-10-24] MEDS: LACTOBACILLUS RHAMNOSUS GG 1 CAPSULE. PO SCH (21:27)
--- NOTE | 2018-10-24 22:10 | PN ---
DATE: 10/24/2018 SUBJECTIVE: The patient is resting flat, in no apparent distress, awake, alert. Continues to complain of difficulty with her speech, but otherwise denied any other complaints; in particular denied any headache, blurring of vision, tingling, numbness or weakness. PHYSICAL EXAMINATION: GENERAL: When I examined her, she looked pale, but no jaundice, cyanosis or thyromegaly. No jugular venous distension. No lower limb edema. VITAL SIGNS: Her heart rate was 68, blood pressure 117/62, temperature was 97.7, respiratory rate was 12 and oxygen saturation was 92%. HEAD, EYES, EARS, NOSE AND THROAT: Showed normocephalic, atraumatic. NECK: Supple. HEART: Showed normal first and second heart sounds. No gallop or murmur. CHEST: Clear to auscultation. No crepitation or rhonchi. ABDOMEN: Distended, soft, nontender. No guarding or rigidity. No organomegaly. All hernial orifices are intact. Bowel sounds normal. NEUROLOGIC: She is awake, alert. All her cranial nerves are intact. She moves extremities without difficulty. PLAN: To arrange for a bedside swallowing, reconcile all her medications. We will consult the neurologist to arrange for an MRI and decide on further management accordingly. I will also check her fasting lipid profile. PATRICIA ONEILL MD DR: FELIZ/amberly JOB#: [id number] / [id number]
[2018-10-24 23:23] VITALS: BP 103/45
[2018-10-25 03:10] VITALS: BP 111/67
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
[2018-10-25] MEDS: LEVOTHYROXINE 50 MCG TABLET PO SCH (06:08)
[2018-10-25 07:00] VITALS: BP 125/68
[2018-10-25] MEDS: ALPRAZolam 0.5 MG TABLET PO SCH ×2 (07:31→15:01)
[2018-10-25] MEDS: LACTOBACILLUS RHAMNOSUS GG 1 CAPSULE. PO SCH (07:31)
[2018-10-25] MEDS: CLOPIDOGREL BISULFATE 75 MG TABLET PO SCH (07:31)
[2018-10-25] MEDS: busPIRone 10 MG TABLET. PO SCH (07:31)
[2018-10-25] MEDS: MAGNESIUM OXIDE 400 MG TABLET PO SCH (07:32)
[2018-10-25] MEDS: OMEGA-3 FATTY ACIDS/FISH OIL 1,000 MG CAPSULE. PO SCH ×2 (07:32→15:01)
[2018-10-25] MEDS: CALCIUM CARB/VIT D3 500/200 TABLET. PO SCH (07:32)
[2018-10-25] MEDS: DULoxetine HCL 30 MG CAPSULE.DR PO SCH (07:32)
[2018-10-25] MEDS: MULTIVITAMIN with MINERAL TABLET. PO SCH (07:32)
[2018-10-25] MEDS: GABAPENTIN 300 MG CAPSULE. PO SCH ×2 (07:32→15:00)
--- NOTE | 2018-10-25 08:31 | PN ---
DATE: 10/25/2018 SUBJECTIVE: The patient is sitting comfortably in her recliner, in no apparent distress. She is awake and alert. She definitely has no stuttering. She does not seem to be anxious or agitated like yesterday. PHYSICAL EXAMINATION: GENERAL: When I examined her this morning, she looked pale. No jaundice, cyanosis, or thyromegaly. No jugular venous distension. No limb edema. VITAL SIGNS: Her heart rate was 70, blood pressure was 111/67, temperature was 97.6, respiratory rate was 18, and oxygen saturation was 90%. HEAD, EYES, EARS, NOSE AND THROAT: Normocephalic and atraumatic. NECK: Supple. HEART: Showed normal first and second heart sounds. No gallop, rub, or murmur. CHEST: Clear to auscultation. No crepitation or rhonchi. ABDOMEN: Distended, soft and nontender. NEUROLOGIC: She was definitely more awake, alert, and responding appropriately. There is no stuttering today. All her cranial nerves are intact. She moves extremities without difficulty. She ambulates with a walker. LABORATORY DATA: She has no lab work and mostly, the lab work done at [facility] is within normal range. PLAN: Plan is to await MRI and if it obviously shows a new stroke, then further workup will be done and MRI was normal, she can be discharged home to follow with her psychiatrist. PATRICIA ONEILL MD DR: FELIZ/amberly JOB#: [id number] / [id number]
[2018-10-25 09:27] LABS: HEMATOCRIT 34.4 % (36.0-47.0); HEMOGLOBIN 11.2 g/dL (12.0-15.5); RED BLOOD COUNT 4.05 x10^6/uL (3.50-5.40); WHITE BLOOD COUNT 4.5 x10^3/uL (4.0-11.0)
[2018-10-25 09:49] LABS: ALBUMIN 3.3 g/dL (3.4-5.0); CALCIUM 9.2 mg/dL (8.5-10.1); CREATININE 0.7 mg/dL (0.6-1.0); GFR 83.2; POTASSIUM 3.8 mmol/L (3.5-5.1); TOTAL BILIRUBIN 0.5 mg/dL (0.2-1.0); TOTAL PROTEIN 6.7 g/dL (6.4-8.2)
[2018-10-25 09:51] LABS: CHOLESTEROL/HDL RATIO 2.2
[2018-10-25 10:46] VITALS: BP 127/74
--- NOTE | 2018-10-25 11:27 | PDOC ---
PROGRESS NOTES Assessment Anxiety attack with worsening of speech and confusion. Prior stroke Plan Await MRI brain If this is negative, no further investigation. Outpatient Psychiatry Discharge today if MRI negative Subjective Feels better, is fairly sure this was an anxiety attack, wants to get a differe nt job Objective Vital Signs Date Time Temp Pulse Resp B/P (MAP) Pulse Ox O2 Delivery O2 Flow Rate FiO2 10/25/18 10:46 98.7 66 16 127/74 (91) 99 Room Air 98.7 Intake and Output 10/25/18 06:59 Intake Total 350 ml Balance 350 ml Intake Oral 350 ml # Voids 3 PHYSICAL EXAM Alert. Oriented to time, place and person. PERRL. EOMI. CN: no focal findings. Muscle tone: normal. Muscle strength: 5/5 DTR: 2+ Plantar reflex: flexor Gait: normal. Sensory exam: no abnormal findings. No cerebellar signs elicited. Review of Relevant I have reviewed the following items rudy (where applicable) has been applied. Labs Laboratory Tests Test 10/24/18 10:50 10/25/18 08:48 Urine Collection Type Unknown Urine Color Yellow Urine Clarity Clear Urine pH 5.5 Urine Specific [place] 1.020 Urine Protein Negative mg/dL (NEG-TRACE) Urine Glucose (UA) Negative mg/dL (NEG) Urine Ketones (Stick) Negative mg/dL (NEG) Urine Blood Negative (NEG) Urine Nitrite Negative (NEG) Urine Bilirubin Negative (NEG) Urine Urobilinogen Dipstick 1.0 mg/dL (0.2 mg/dL) Urine Leukocyte Esterase Large (NEG) Urine RBC Occ /HPF (0-2) Urine WBC >40 /HPF (0-4) Urine Squamous Epithelial Cells Occ /LPF Urine Bacteria Few /HPF (0-FEW) Urine Mucus Marked /LPF White Blood Count 4.5 x10^3/uL (4.0-11.0) Red Blood Count 4.05 x10^6/uL (3.50-5.40) Hemoglobin 11.2 g/dL (12.0-15.5) Hematocrit 34.4 % (36.0-47.0) Mean Corpuscular Volume 85 fL (79-100) Mean Corpuscular Hemoglobin 28 pg (25-35) Mean Corpuscular Hemoglobin Concent 33 g/dL (31-37) Red Cell Distribution Width 22.0 % (11.5-14.5) Platelet Count 234 x10^3/uL (140-400) Erythrocyte Sedimentation Rate 10 (0-25) Sodium Level 143 mmol/L (136-145) Potassium Level 3.8 mmol/L (3.5-5.1) Chloride Level 107 mmol/L (98-107) Carbon Dioxide Level 28 mmol/L (21-32) Anion Gap 8 (6-14) Blood Urea Nitrogen 16 mg/dL (7-20) Creatinine 0.7 mg/dL (0.6-1.0) Estimated GFR (Cockcroft-Gault) 83.2 BUN/Creatinine Ratio 23 (6-20) Glucose Level 128 mg/dL (70-99) Calcium Level 9.2 mg/dL (8.5-10.1) Total Bilirubin 0.5 mg/dL (0.2-1.0) Aspartate Amino Transf (AST/SGOT) 17 U/L (15-37) Alanine Aminotransferase (ALT/SGPT) 15 U/L (14-59) Alkaline Phosphatase 97 U/L (46-116) C-Reactive Protein, Quantitative 5.4 mg/L (0-3.3) Total Protein 6.7 g/dL (6.4-8.2) Albumin 3.3 g/dL (3.4-5.0) Albumin/Globulin Ratio 1.0 (1.0-1.7) Triglycerides Level 78 mg/dL (0-150) Cholesterol Level 122 mg/dL (0-200) LDL Cholesterol, Calculated 50 mg/dL (0-100) VLDL Cholesterol, Calculated 16 mg/dL (0-40) Non-HDL Cholesterol Calculated 66 mg/dL (0-129) HDL Cholesterol 56 mg/dL (40-60) Cholesterol/HDL Ratio 2.2 Thyroid Stimulating Hormone (TSH) 1.410 uIU/mL (0.358-3.74) Laboratory Tests Test 10/25/18 08:48 White Blood Count 4.5 x10^3/uL (4.0-11.0) Red Blood Count 4.05 x10^6/uL (3.50-5.40) Hemoglobin 11.2 g/dL (12.0-15.5) Hematocrit 34.4 % (36.0-47.0) Mean Corpuscular Volume 85 fL (79-100) Mean Corpuscular Hemoglobin 28 pg (25-35) Mean Corpuscular Hemoglobin Concent 33 g/dL (31-37) Red Cell Distribution Width 22.0 % (11.5-14.5) Platelet Count 234 x10^3/uL (140-400) Erythrocyte Sedimentation Rate 10 (0-25) Sodium Level 143 mmol/L (136-145) Potassium Level 3.8 mmol/L (3.5-5.1) Chloride Level 107 mmol/L (98-107) Carbon Dioxide Level 28 mmol/L (21-32) Anion Gap 8 (6-14) Blood Urea Nitrogen 16 mg/dL (7-20) Creatinine 0.7 mg/dL (0.6-1.0) Estimated GFR (Cockcroft-Gault) 83.2 BUN/Creatinine Ratio 23 (6-20) Glucose Level 128 mg/dL (70-99) Calcium Level 9.2 mg/dL (8.5-10.1) Total Bilirubin 0.5 mg/dL (0.2-1.0) Aspartate Amino Transf (AST/SGOT) 17 U/L (15-37) Alanine Aminotransferase (ALT/SGPT) 15 U/L (14-59) Alkaline Phosphatase 97 U/L (46-116) C-Reactive Protein, Quantitative 5.4 mg/L (0-3.3) Total Protein 6.7 g/dL (6.4-8.2) Albumin 3.3 g/dL (3.4-5.0) Albumin/Globulin Ratio 1.0 (1.0-1.7) Triglycerides Level 78 mg/dL (0-150) Cholesterol Level 122 mg/dL (0-200) LDL Cholesterol, Calculated 50 mg/dL (0-100) VLDL Cholesterol, Calculated 16 mg/dL (0-40) Non-HDL Cholesterol Calculated 66 mg/dL (0-129) HDL Cholesterol 56 mg/dL (40-60) Cholesterol/HDL Ratio 2.2 Thyroid Stimulating Hormone (TSH) 1.410 uIU/mL (0.358-3.74) Medications Current Medications Alprazolam (Xanax) 0.5 mg TID PO Last administered on 10/25/18at 07:32; Start 10/24/18 at 00:00 Alprazolam (Xanax) 0.5 mg 1X ONCE PO ; Start 10/24/18 at 00:00; Stop 10/24/18 at 00:01; Status UNV Atorvastatin Calcium (Lipitor) 20 mg QHS PO Last administered on 10/24/18 21:2 8; Start 10/24/18 at 21:00 Buspirone HCl (Buspar) 10 mg BID PO Last administered on 10/25/18 07:32; Start 10/24/18 at 09:00 Clopidogrel Bisulfate (Plavix) 75 mg DAILY PO Last administered on 10/25/18 07:32; Start 10/24/18 at 09:00 Diphenhydramine HCl (Benadryl) 25 mg QHS PO Last administered on 10/24/18 21:28; Start 10/24/18 at 21:00 Levothyroxine Sodium (Synthroid) 50 mcg DAILY06 PO Last administered on 10/25/18 06:08; Start 10/24/18 at 09:00 Magnesium Oxide (Magnesium Oxide) 400 mg DAILY PO Last administered on 10/25/18 07:32; Start 10/24/18 at 09:00 Duloxetine HCl (Cymbalta) 60 mg DAILY PO Last administered on 10/25/18 07:32; Start 10/24/18 at 09:00 Gabapentin (Neurontin) 600 mg TID PO Last administered on 10/25/18 07:32; Start 10/24/18 at 09:00 Non-Formulary Medication (Glucosamine Sulfate 2KCL (Glucosamine)) 1,000 mg DAILY PO ; Start 10/24/18 at 09:00; Status UNV Non-Formulary Medication (Melatonin ) 10 mg HS PO ; Start 10/24/18 at 21:00; Status UNV Fish Oil (Fish Oil) 1,000 mg TID PO Last administered on 10/25/18 07:32; Start 10/24/18 at 09:00 Non-Formulary Medication (Turmeric Root Extract (Turmeric)) 1 cap DAILY PO ; Start 10/24/18 at 09:00; Status UNV Non-Formulary Medication (Ubidecarenone (Coq10)) 50 mg DAILY PO ; Start 10/24/18 at 09:00; Status UNV Calcium/Vitamin D (Oscal D 500mg/ 200uts) 1 tab BIDWMEALS PO Last administered on 10/25/18at 07:32; Start 10/24/18 at 09:00 Multivitamins (Thera M Plus) 1 tab DAILY PO Last administered on 10/25/18at 07:32; Start 10/24/18 at 09:00 Ciprofloxacin (Cipro) 500 mg BID PO ; Start 10/24/18 at 21:00; Stop 10/29/18 at 21:00; Status UNV Ciprofloxacin (Cipro) 500 mg 1X ONCE PO ; Start 10/24/18 at 10:15; Stop 10/24/18 at 10:16; Status UNV Ceftriaxone Sodium (Rocephin) 1 gm Q24H IVP Last administered on 10/24/18at 10:41; Start 10/24/18 at 11:00 Lactobacillus Rhamnosus (Culturelle) 1 cap BID PO Last administered on 9at 07:32; Start 10/24/18 at 21:00 Active Scripts Active Reported Ciprofloxacin Hcl 500 Mg Tablet Unknown Dose PO BID 7 Days Glucosamine (Glucosamine Sulfate 2KCL) 1,000 Mg Tablet 1,000 Mg PO DAILY Fish Oil 1,000 Mg Softgel ([place]-3 Fatty Acids/Fish Oil) 1 Each Capsule 1 Each PO TID Magnesium Oxide 400 Mg Tablet 1 Tab PO DAILY Atorvastatin Calcium 20 Mg Tablet 1 Tab PO QHS Levothyroxine Sodium 50 Mcg Tablet 1 Tab PO DAILY Benadryl (Diphenhydramine Hcl) 25 Mg Capsule 1 Cap PO QHS Turmeric (Turmeric Root Extract) 538 Mg Capsule 1 Cap PO DAILY Gabapentin 600 Mg Tablet 600 Mg PO TID Melatonin 3 Mg Tablet 10 Mg PO HS Coq10 (Ubidecarenone) 50 Mg Tab.chew 50 Mg PO DAILY Xanax (Alprazolam) 0.5 Mg Tablet 1 Tab PO TID Multivitamins (Multivitamin) 1 Each Tablet 1 Each PO Calcium + D3 Er Tablet (Calcium Carb & Cit/Vitamin D3) 1 Each Tablet.er 1 Each PO Plavix (Clopidogrel Bisulfate) 75 Mg Tablet 75 Mg PO DAILY Buspirone Hcl 10 Mg Tablet 10 Mg PO BID Cymbalta (Duloxetine Hcl) 60 Mg Capsule.dr 60 Mg PO DAILY Vitals/I & O Vital Sign - Last 24 Hours 10/24/18 10/24/18 10/24/18 10/24/18 15:00 19:53 20:00 23:23 Temp 97.8 97.4 97.8 97.8 97.4 97.8 Pulse 75 75 74 Resp 16 20 18 B/P (MAP) 111/66 (81) 115/66 (82) 103/45 (64) Pulse Ox 94 99 94 O2 Delivery Room Air Room Air Room Air Room Air 10/25/18 10/25/18 10/25/18 03:10 07:00 10:46 Temp 97.6 97.9 98.7 97.6 97.9 98.7 Pulse 70 67 66 Resp 18 16 16 B/P (MAP) 111/67 (82) 125/68 (87) 127/74 (91) Pulse Ox 90 95 99 O2 Delivery Room Air Room Air Room Air Intake and Output 10/24/18 10/24/18 10/25/18 14:59 22:59 06:59 Intake Total 200 ml 150 ml Balance 200 ml [address] CODE STROKE HEAD WO dated 10/23/2018 5:18 PM Indication: Weakness slurred speech history of stroke in 2013. Comparison: 02/22/2016 Technique: Contiguous axial imaging the head was performed from skull base to vertex. No contrast administered. One or more of the following individualized dose reduction techniques were utilized for this examination: 1. Automated exposure control 2. Adjustment of the mA and/or kV according to patient size 3. Use of iterative reconstruction technique Findings: Ventricles and sulci are mildly prominent for age. No midline shift or mass effect. There is moderate patchy low density throughout the deep/subcortical periventricular white matter. No hemorrhage or extra-axial collection. Posterior fossa and brainstem unremarkable. Visually paranasal sinuses and mastoid air cells are clear. No apparent calvarial abnormality. IMPRESSION: 1. No evidence of acute intracranial hemorrhage or mass. 2. Moderate chronic small vessel ischemic changes and atrophy. 3. No CT evidence of acute CVA. If there is persistent clinical concern for evolving infarct, MRI could better evaluate. TRAMAINE LE MD Oct 25, 2018 11:27
[2018-10-25] MEDS: cefTRIAXone IV Push 1 GM VIAL. IVP SCH (12:24)
--- NOTE | 2018-10-25 14:19 | NUR ---
SW following pt for dc planning. Chart reviewed. Pt lives at home and admitted for CVA. PT/OT ordered and pending. SW will await for PT/OT recommendation to assess skilled needs. Pt has been to [facility] in June 2018. Will continue to follow.
--- NOTE | 2018-10-25 14:21 | RAD ---
MRI of the brain without contrast 10/25/2018 Clinical History: Language difficulty. Technique: Unenhanced T1-weighted sagittal and axial, T2-weighted axial and coronal and FLAIR, gradient echo and diffusion-weighted axial images of the brain were obtained. Findings: Comparison study is dated 02/03/2017. There is generalized parenchymal atrophy. Patchy, confluent and multiple focal areas of increased signal intensity are seen within the periventricular and subcortical white matter of both cerebral hemispheres along with the alok on the FLAIR and T2-weighted images consistent with areas of small vessel ischemic disease. These have not significant changed. An old area of infarction is seen involving the left frontoparietal lobe white matter which extends to involve the body of the corpus callosum. This measures 1.8 cm in size. Several old areas of infarction are seen involving both cerebellar hemispheres along with the left and right thalamus. These measure 2 mm to 6 mm in size. No acute parenchymal abnormality is seen. No extra-axial fluid collection is seen. There is no MRI evidence of acute ischemia/infarction. Very mild mucosal thickening in seen scattered throughout the paranasal sinuses. There are minimal bilateral mastoid effusions. Normal flow voids are seen within the major vascular structures surrounding the brain parenchyma. Impression: No acute parenchymal abnormality is seen. Electronically signed by: Dexter Cordoba MD (10/25/2018 2:18 PM) [id number]
[2018-10-25 14:37] VITALS: BP 116/73
--- NOTE | 2018-10-25 17:24 | NUR ---
PT DISCHARGED TO HOME. TRANSPORTATION PROVIDED BY FAMILY FRIEND. DISCHARGE TEACHING COMPLETED.
--- NOTE | 2018-10-25 22:09 | DS ---
DATE OF DISCHARGE: 10/25/2018 HOSPITAL COURSE: The patient is a 68-year-old female patient who was seen initially in the Emergency Room of [facility] because of the expressive aphasia stated that she has had before a stroke that affected her language centers and therefore, a decision was made to transfer her to [facility] to consult the neurologist there and also to arrange for an MRI. She was seen by Dr. Araya and apparently he told that this is all extreme anxiety. She did have a stroke in 2002. She initially had a stroke, but then had more severe stroke in 2013. The stroke was the corpus callosum, which initially might have been tumor and that has apparently seemed to affect her speech, especially when under stress. She has a stuttering and word finding difficulty and that is what is happened when she was working. In any case, she has had an MRI done today, which showed no acute parenchymal abnormality seen. No extraaxial fluid collection is seen. There is no MRI evidence of acute ischemia or infarction and Dr. Ritter recommended that the patient can be discharged to follow with her psychiatrist. PHYSICAL EXAMINATION: GENERAL: When I saw her today, she was resting comfortably in her recliner, in no apparent respiratory distress. No pallor, jaundice, cyanosis or thyromegaly. No jugular venous distention. No limb edema. VITAL SIGNS: Her heart rate was 68, blood pressure 116/73, temperature was 97.6, respiratory rate was 16, and oxygen saturation was 96%. NEUROLOGIC: She was able to talk clearly today without any evidence of stuttering. She is neurologically intact. All her cranial nerves are intact. She moves all extremities without difficulty. She ambulates with a walker. LABORATORY DATA: Stable and unchanged. Her white cell count was 4500, hemoglobin 11, hematocrit 34, MCV 85 and platelet count 234,000. Her serum sodium was 143, potassium 3.8, chloride 107, bicarbonate 28, anion gap of 8, BUN 16, creatinine 0.7. Her TSH was normal at 1.410. Her serum triglycerides were 78, total cholesterol 122, LDL was 15, VLDL was 16, and HDL cholesterol was 56 and the ratio was 2.2. Her C-reactive protein was 5.4. Sedimentation rate was 10 mm per hour. DISCHARGE MEDICATIONS: She was discharged home to continue on alprazolam or Xanax 0.5 mg 3 times a day, atorvastatin calcium 20 mg at bedtime, buspirone 10 mg b.i.d., calcium carbonate with vitamin D one tablet twice a day. She was on ciprofloxacin 500 mg twice a day for UTI, Plavix 75 mg once a day, diphenhydramine 25 mg at bedtime, duloxetine 60 mg daily, gabapentin 600 mg 3 times a day, glucosamine sulfate 1000 mg daily, levothyroxine sodium 50 mcg once a day, magnesium oxide 400 mg daily, melatonin 10 mg at bedtime, multivitamin 1 tablet once a day, omega-3 fatty acids 1000 mg 3 times a day, turmeric root extract 1 capsule daily, and CoQ10 50 mg once a day. FINAL DISCHARGE DIAGNOSES: Severe anxiety and panic attack. Other medical problems include cerebrovascular accident in 2002 and 2013, coronary artery disease, status post myocardial infarction, hypertension, osteoarthritis, osteoporosis, and history of shingles. PATRICIA ONEILL MD DR: FELIZ/amberly JOB#: [id number] / [id number]
== END 2018-10-25 17:27 | disposition home or self-care (01) | DRG 880 ==
LOC: 6 SOUTH 23:06
PROVIDERS: ADMIT Internal Medicine; ATTEND Internal Medicine
DX: F41.1 Generalized anxiety disorder (principal); R47.01 Aphasia; R47.9 Unspecified speech disturbances; F32.9 Major depressive disorder, single episode, unspecified; F41.0 Panic disorder [episodic paroxysmal anxiety]; I10 Essential (primary) hypertension; I25.10 Atherosclerotic heart disease of native coronary artery without angina pectoris; M15.9 Polyosteoarthritis, unspecified; I25.2 Old myocardial infarction; M81.0 Age-related osteoporosis without current pathological fracture; Z79.02 Long term (current) use of antithrombotics/antiplatelets; Z82.49 Family history of ischemic heart disease and other diseases of the circulatory system; Z86.19 Personal history of other infectious and parasitic diseases; Z86.73 Personal history of transient ischemic attack (TIA), and cerebral infarction without residual deficits; Z96.611 Presence of right artificial shoulder joint; Z96.641 Presence of right artificial hip joint; Z98.84 Bariatric surgery status; Z90.710 Acquired absence of both cervix and uterus; Z83.3 Family history of diabetes mellitus; Z90.49 Acquired absence of other specified parts of digestive tract; Z88.8 Allergy status to other drugs, medicaments and biological substances
CPT/HCPCS: 36415; 70551; 80053; 80061; 81001; 84443; 85027; 85651; 86140; 87086; J0696; Q0163; 97535; G0378

== ENCOUNTER → 2020-12-31 | Outpatient (CLI) | payer MEDICARE, OTHER ==
[~2020-12-31] MED LIST changes: +CIPR500T2 PO; -DULO60CA6 PO; +DULO60CA7 PO; +GLUC100018 PO; -MAGN400T3 PO; +MAGN400T48 PO; +MELA3TAB4 PO; -MELA3TAB56 PO; +MULT-445 PO; -MULT1TAB52 PO; +TIZA-75 PO; -TIZA4TAB2 PO; -VALA500T PO; +VALA500T9 PO; -WARF-78 PO; +WARF5TAB2 PO
--- NOTE | 2020-12-31 11:58 | KCIC ---
EXAM: Brain MRI without contrast. HISTORY: Cognitive impairment. Headache. Left-sided ptosis. TECHNIQUE: Multiplanar, multisequence magnetic resonance imaging of the brain was performed without c ontrast. COMPARISON: 10/24/2018. FINDINGS: There is no restricted diffusion to suggest acute or subacute infarction. There is no susce ptibility effect to suggest hemorrhage. There is no mass effect or midline shift. There is no hydroce phalus. There are extensive scattered areas of signal change throughout the cerebral white matter and alok, a nonspecific finding. There is evidence of right lens surgery. The paranasal sinuses mastoid air cells are unremarkable. There are normal flow voids within the cerebral vessels. There is a chron ic lacunar infarct within the left caudate nucleus. There is a chronic infarct involving the body of the corpus callosum. There is degenerative change involving the visualized cervical spine. There is n o suspicious osseous lesion. IMPRESSION: 1. No acute intracranial finding. 2. Extensive scattered areas of signal change within the cerebral white matter and alok. This is a no nspecific finding which is most commonly due to chronic small vessel disease in patients of this age. 3. 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 4. Cerebral volume loss. Electronically signed by: Marilynn White MD (12/31/2020 11:55 AM) [id number]
== END ==
LOC: KCIC MRI 10:41
PROVIDERS: ATTEND Psychiatry & Neurology Neurology with Special Qualifications in Child Neurology
DX: I63.81 Other cerebral infarction due to occlusion or stenosis of small artery (principal); R90.82 White matter disease, unspecified; G93.89 Other specified disorders of brain; G31.84 Mild cognitive impairment of uncertain or unknown etiology; G44.52 New daily persistent headache (NDPH); H02.402 Unspecified ptosis of left eyelid; Z86.73 Personal history of transient ischemic attack (TIA), and cerebral infarction without residual deficits
CPT/HCPCS: 70551